=== PATIENT | female | born 1985 | race African-American/Black ===

== ENCOUNTER 2016-06-15 09:10 | Emergency (ER) | payer MEDICAID ==
[~2016-06-15] VITALS: Ht 177.8 cm; Wt 75.0 kg
[~2016-06-15 09:10] MED LIST: TERI14TA PO
[2016-06-15 09:11] VITALS: BP 117/59; PULSE 89; RESP 16; TEMP 98.8; O2SAT 98
[2016-06-15] MEDS ORDERED: SODIUM CHLOR 0.9% 1000 ML INJ 1,000 ML IV SCH (09:33)
[2016-06-15] MEDS ORDERED: METHYLPREDNISOLONE (09:33)
--- NOTE | 2016-06-15 09:33 | PD ---
HPI Chief Complaint: Abdominal Pain Time Seen by Provider: 09:26 Travel History International Travel<30 days: No Contact w/Intl Traveler<30days: No Traveled to known affect area: No History of Present Illness HPI This is a 30-year-old female with history of MS and status post emergent hysterectomy for dysfunctional uterine bleeding and 3 presents emergency Department with suprapubic abdominal cramping and vaginal spotting for the past week. She states the pain is been increasing over the past few days. She endorses mild nausea without vomiting. Denies any dysuria. She states she chronically has numbness and tingling over her extremities but is no worse than usual. States the pain is cramping in nature and gradually worsening. She denies any fever denies any flank pain denies any chest pain shortness of breath. PFSH Past Medical History Asthma: No Autoimmune Disease: Yes (MS) Blood Disorders: No Anxiety: No Depression: No Heart Rhythm Problems: No Cancer: Yes (LEFT BREAST CA. MASTECTOMY 2014) Cardiovascular Problems: No High Cholesterol: No Chemotherapy: No Chest Pain: Yes Congestive Heart Failure: No COPD: No Cerebrovascular Accident: No Diabetes: No Diminished Hearing: No Endocrine: No Gastrointestinal Disorders: Yes Genitourinary: Yes Headaches: Yes Hepatitis: No Hiatal Hernia: No Hypertension: No Immune Disorder: Yes (MS/goes to infusion clinic for solumdrol) Implanted Vascular Access Dvce: No Kidney Stones: No Musculoskeletal: Yes (MS- SOMETIMES USES A CANE) Neurologic: Yes (HX OF MS, RECENT EVENT 6-9) Psychiatric: No Reproductive: Yes (TOTAL HYSTERECTOMY 2013) Respiratory: No Immunizations Current: Yes Migraines: Yes Radiation Therapy: No Renal Failure: No Seizures: No Sleep Apnea: No Thyroid Disease: No Tetanus Vaccination: > 5 Years Influenza Vaccination: Yes ?: Not Menopausal: No : 3 Para: 2 Ovarian Cysts: Yes Past Surgical History Abdominal Surgery: Yes (OVARIAN TUMOR/CYSTS REMOVED - ) AICD: No Body Medical Devices: BILATERAL BREAST EXPANDERS Cardiac Surgery: No Section: Yes (X3) Endocrine Surgery: No Genitourinary Surgery: No Gynecologic Surgery: Yes (HYSTER=03/20/2013, CERVICAL SCRAPING/ LASER, CRYO LAPAROSCOPY ) Hysterectomy: Yes (had sup/cerv hysterectomy) Joint Replacement: No Neurologic Surgery: No Pacemaker: No Thoracic Surgery: Yes (BILAT MASTECTOMY 11/2014, LUMPECTOMY) Tonsillectomy: Yes Other Surgery: Yes (TONSILECTOMY) Social History Alcohol Use: No Tobacco Use: No Substance Use: No Allergies-Medications (Allergen,Severity, Reaction): Coded Allergies: Ativan (Verified Allergy, Intermediate, Bradycardia, 06/15/16) Reported Meds & Prescriptions Reported Meds & Active Scripts Active Reported [solumedrol infusion] Aubagio (Teriflunomide) 14 Mg Tab 14 Mg PO DAILY Review of Systems Except as stated in HPI: all other systems reviewed are Neg Physical Exam Narrative GENERAL: Well-developed well-nourished, ambulatory to the cane, no apparent distress SKIN: Focused skin assessment warm/dry. HEAD: Atraumatic. Normocephalic. EYES: Pupils equal and round. No scleral icterus. No injection or drainage. ENT: No nasal bleeding or discharge. Mucous membranes pink and moist. NECK: Trachea midline. No JVD. CARDIOVASCULAR: Regular rate and rhythm. No murmur appreciated. RESPIRATORY: No accessory muscle use. Clear to auscultation. Breath sounds equal bilaterally. GASTROINTESTINAL: Abdomen soft, and only tender in the superpubic area, nondistended. Hepatic and splenic margins not palpable. GENITOURINARY: Exam performed with female nurse fermenter wine present at all times. Patient with normal external female genitalia. cervix absent. No bmanual tenderness. minimal yeast-like discharge. MUSCULOSKELETAL: No obvious deformities. No clubbing. No cyanosis. No edema. NEUROLOGICAL: Awake and alert. No obvious cranial nerve deficits. Motor grossly within normal limits. Normal speech. PSYCHIATRIC: Appropriate mood and affect; insight and judgment normal. Data Data Last Documented VS Vital Signs Date Time Temp Pulse Resp B/P Pulse Ox O2 Delivery O2 Flow Rate FiO2 06/15/16 13:15 82 16 115/52 98 Room Air 06/15/16 09:11 98.8 Orders Urinalysis - C+S If Indicated (06/15/16 09:15) Ed Urine Pregnancytest Poc (06/15/16 09:15) Complete Blood Count With Diff (06/15/16 09:33) Comprehensive Metabolic Panel (06/15/16 09:33) Lipase (06/15/16 09:33) Prothrombin Time / Inr (Pt) (06/15/16 09:33) Act Partial Throm Time (Ptt) (06/15/16 09:33) Iv Access Insert/Monitor (06/15/16 09:33) Ecg Monitoring (06/15/16 09:33) Oximetry (06/15/16 09:33) Ondansetron Inj (Zofran Inj) (06/15/16 09:45) Sodium Chlor 0.9% 1000 Ml Inj (Ns 1000 M (06/15/16 09:33) Sodium Chloride 0.9% Flush (Ns Flush) (06/15/16 09:45) Ketorolac Inj (Toradol Inj) (06/15/16 09:45) Wet Prep Profile (06/15/16 10:14) Gc And Chlamydia Pcr (06/15/16 10:14) Ct Abd/Pel W Iv Contrast(Rout) (06/15/16 ) Iohexol 350 Inj (Omnipaque 350 Inj) (06/15/16 11:03) Fluconazole (Diflucan) (06/15/16 12:30) Labs Laboratory Tests Test 06/15/16 06/15/16 09:29 11:15 White Blood Count 3.7 TH/MM3 Red Blood Count 4.39 MIL/MM3 Hemoglobin 13.2 GM/DL Hematocrit 38.9 % Mean Corpuscular Volume 88.5 FL Mean Corpuscular Hemoglobin 30.0 PG Mean Corpuscular Hemoglobin 33.8 % Concent Red Cell Distribution Width 12.6 % Platelet Count 149 TH/MM3 Mean Platelet Volume 10.1 FL Neutrophils (%) (Auto) 51.8 % Lymphocytes (%) (Auto) 38.1 % Monocytes (%) (Auto) 5.9 % Eosinophils (%) (Auto) 3.4 % Basophils (%) (Auto) 0.8 % Neutrophils # (Auto) 1.9 TH/MM3 Lymphocytes # (Auto) 1.4 TH/MM3 Monocytes # (Auto) 0.2 TH/MM3 Eosinophils # (Auto) 0.1 TH/MM3 Basophils # (Auto) 0.0 TH/MM3 CBC Comment DIFF FINAL Differential Comment Prothrombin Time 11.4 SEC Prothromb Time International 1.0 RATIO Ratio Activated Partial 25.9 SEC Thromboplast Time Urine Color YELLOW Urine Turbidity HAZY Urine pH 6.0 Urine Specific [place] 1.023 Urine Protein TRACE mg/dL Urine Glucose (UA) NEG mg/dL Urine Ketones NEG mg/dL Urine Occult Blood NEG Urine Nitrite NEG Urine Bilirubin NEG Urine Urobilinogen LESS THAN 2.0 MG/DL Urine Leukocyte Esterase NEG Urine RBC LESS THAN 1 /hpf Urine WBC 1 /hpf Urine Squamous Epithelial 4 /hpf Cells Urine Bacteria RARE /hpf Urine Mucus FEW /lpf Microscopic Urinalysis Comment CULT NOT INDICATED Sodium Level 140 MEQ/L Potassium Level 3.9 MEQ/L Chloride Level 106 MEQ/L Carbon Dioxide Level 28.7 MEQ/L Anion Gap 5 MEQ/L Blood Urea Nitrogen 9 MG/DL Creatinine 1.08 MG/DL Estimat Glomerular Filtration 73 ML/MIN Rate Random Glucose 79 MG/DL Calcium Level 8.6 MG/DL Total Bilirubin 0.6 MG/DL Aspartate Amino Transf 16 U/L (AST/SGOT) Alanine Aminotransferase 24 U/L (ALT/SGPT) Alkaline Phosphatase 90 U/L Total Protein 7.3 GM/DL Albumin 4.1 GM/DL Lipase 104 U/L Clue Cells (Wet Prep) NONE SEEN Vaginal Trichomonas (Wet Prep) NONE SEEN Vaginal Yeast (Wet Prep) NONE SEEN Chlamydia trachomatis DNA NOT DETECTED (PCR) Neisseria gonorrhoeae DNA NOT DETECTED (PCR) [facility] Medical Decision Making Medical Screen Exam Complete: Yes Emergency Medical Condition: Yes Differential Diagnosis Pelvic pain, acute abdomen unlikely, appendicitis unlikely. Yeast infection, UTI. Narrative Course Patient roomed in ED, appears comfortable and in nad. Given toradol. Sleeping on reassessment still stating in some mild discomfort. Labs are reassuring. Her abdomen is benign. No indication for emergent imaging. DIscussed findings with patient, given diflucan. Discussed need for follow up with pcp and return to ED criteria. Diagnosis Primary Impression: Pelvic pain Additional Impression: Yeast infection Patient Instructions: General Instructions, Pelvic Pain in Women (DC), Vulvovaginal Candidiasis (ED) Disposition: 01 DISCHARGE HOME Condition: Stable Paramjit Thorpe MD Jun 15, 2016 09:33
[2016-06-15] MEDS ORDERED: SODIUM CHLORIDE 0.9% FLUSH 10 ML FLUSH IV FLUSH PRN (09:45)
[2016-06-15] MEDS ORDERED: KETOROLAC TROMETHAMINE 30 MG/ML (IVP) VIAL IVP ONE (09:45)
[2016-06-15] MEDS ORDERED: ONDANSETRON HCL 4 MG/2 ML VIAL IVP ONE (09:45)
[2016-06-15 09:53] LABS: AUTOMATED NEUTROPHIL # 1.9 TH/MM3 (1.8-7.7); BASOPHIL % 0.8 % (0.0-2.0); EOSINOPHIL # 0.1 TH/MM3 (0-0.4); EOSINOPHIL % 3.4 % (0.0-4.0); HEMATOCRIT 38.9 % (35.0-46.0); HEMO FLAGS DIFF FINAL; LYMPH % 38.1 % (9.0-44.0); LYMPHOCYTE # 1.4 TH/MM3 (1.0-4.8); MEAN CELL VOLUME 88.5 FL (80.0-100.0); MEAN CORPUSCULAR HGB CONC 33.8 % (32.0-36.0); MONO % 5.9 % (0.0-8.0); NEUT % 51.8 % (16.0-70.0); PLATELET COUNT 149 TH/MM3 (150-450); RED BLOOD COUNT 4.39 MIL/MM3 (4.00-5.30); RED CELL DISTRIBUTION WIDTH 12.6 % (11.6-17.2); WHITE BLOOD COUNT 3.7 TH/MM3 (4.0-11.0)
[2016-06-15 10:01] LABS: BACTERIA, URINE RARE /hpf; BLOOD, URINE NEG (NEG); COMMENT (UR) CULT NOT INDICATED; CULTURE IF INDICATED CULT NOT INDICATED; GLUCOSE,URINE NEG (NEG); KETONE, URINE NEG (NEG); MUCUS URINE FEW /lpf (OCC); NITRITE,URINE NEG (NEG); SQUAMOUS EPITHELIAL CELL URINE 4 /hpf (0-5); URINE COLOR YELLOW (YELLW/STRAW)
[2016-06-15 10:03] LABS: APTT (PATIENT) 25.9 SEC (24.3-30.1); PROTHROMBIN TIME - PATIENT 11.4 SEC (9.8-11.6)
[2016-06-15 10:09] LABS: ALKALINE PHOSPHATASE 90 U/L (45-117); ALT (GPT) 24 U/L (10-53); ANION GAP 5 MEQ/L (5-15); AST (GOT) 16 U/L (15-37); BICARBONATE 28.7 MEQ/L (21.0-32.0); BLOOD UREA NITROGEN 9 MG/DL (7-18); CHLORIDE 106 MEQ/L (98-107); GLOMERULAR FILTRATION RATE 73 ML/MIN (>89); POTASSIUM 3.9 MEQ/L (3.5-5.1); SODIUM (NA) 140 MEQ/L (136-145); TOTAL BILIRUBIN ADULT 0.6 MG/DL (0.2-1.0)
[2016-06-15] MEDS ORDERED: IOHEXOL 350 MG/ML 10 ML VIAL (for RAD DIAG) IV ONE (11:03)
--- NOTE | 2016-06-15 11:44 | RADRPT ---
EXAM DATE/TIME: 06/15/2016 10:53 [facility] COMPARISON: No previous studies available for comparison. INDICATIONS : Abdomen pain. IV CONTRAST: 100 cc Omnipaque 350 (iohexol) IV ORAL CONTRAST: No oral contrast ingested. RADIATION DOSE: 6.72 CTDIvol (mGy) MEDICAL HISTORY : SURGICAL HISTORY : None. ENCOUNTER: Initial ACUITY: 1 day PAIN SCALE: 3/10 LOCATION: Bilateral ABDOMEN. TECHNIQUE: Volumetric scanning of the abdomen and pelvis was performed. Using automated exposure control and ad justment of the mA and/or kV according to patient size, radiation dose was kept as low as reasonably achievable to obtain optimal diagnostic quality images. FINDINGS: LOWER LUNGS: The visualized lower lungs are clear. LIVER: Homogeneous density without lesion. There is no dilation of the biliary tree. No calcified gallston es. SPLEEN: Normal size without lesion. PANCREAS: Within normal limits. KIDNEYS: Normal in size and shape. There is no mass, stone or hydronephrosis. ADRENAL GLANDS: Within normal limits. VASCULAR: There is no aortic aneurysm. BOWEL/MESENTERY: No evidence of bowel dilatation. No free air or free fluid. Appendix within normal limits. ABDOMINAL WALL: Within normal limits. RETROPERITONEUM: There is no lymphadenopathy. BLADDER: No wall thickening or mass. REPRODUCTIVE: Within normal limits. INGUINAL: There is no lymphadenopathy or hernia. MUSCULOSKELETAL: Within normal limits for patient age. CONCLUSION: No acute findings in the abdomen or pelvis. Yevgeniy Galvan MD on June 15, 2016 at 11:38 Board Certified Radiologist. This report was verified electronically.
[2016-06-15] MEDS ORDERED: FLUCONAZOLE 100 MG TAB PO ONE (12:30)
[2016-06-15 13:15] VITALS: BP 115/52; PULSE 82; RESP 16; O2SAT 98
[2016-06-15 18:51] LABS: CHLAMYDIA PCR NOT DETECTED (NOT DETECT); NEISSERIA PCR NOT DETECTED (NOT DETECT)
== END 2016-06-15 13:45 | disposition home or self-care (01) ==
LOC: NEPD 09:10
DX: R10.2 Pelvic and perineal pain (principal); B37.9 Candidiasis, unspecified; N93.8 Other specified abnormal uterine and vaginal bleeding; R20.0 Anesthesia of skin
CPT/HCPCS: 74177; 80053; 81001; 83690; 84703; 85025; 85610; 85730; 87210; 87491; 87591; 96361; 96374; 96375; 99284; J1885; J2405; J7030; Q9967

== ENCOUNTER 2016-08-08 18:45 | Emergency (ER) | payer MEDICAID ==
[~2016-08-08] VITALS: Ht 177.8 cm; Wt 78.0 kg
[~2016-08-08 18:45] MED LIST changes: +METHYLPREDNISOLONE
[2016-08-08 18:47] VITALS: BP 118/75; PULSE 75; RESP 20; TEMP 98.8; O2SAT 100
--- NOTE | 2016-08-08 22:42 | PD ---
HPI . MS flare Chief Complaint: General Weakness Time Seen by Provider: 22:41 Travel History International Travel<30 days: No Contact w/Intl Traveler<30days: No Traveled to known affect area: No History of Present Illness HPI 31-year-old female who was diagnosed with multiple sclerosis in 2013 here with complaints of MS flare. Patient tells me that she usually takes medication named Aubagio and has been off of insulin since April of this year due to insurance issues. Patient tells me that she has not been able to see a neurologist and therefore has not been able to get this medication through her health insurance. Since then she's been experiencing intermittent flares of multiple sclerosis where she has increased generalized aches and pains and weakness. Patient tells me that she has fallen several times, but denies any head injury, loss of consciousness or significant joint pain. She is able to ambulate with a cane, but feels extremely weak. Today she is complaining of generalized pain moderate to severe. She also reports some intermittent shortness of breath and pain in her sternum. She tells me this usually goes along with her MS flares. Additionally she reports nausea, but denies any vomiting, abdominal pain or diaphoresis. She is accompanied by her father. PFSH Past Medical History Asthma: No Autoimmune Disease: Yes (MS) Blood Disorders: No Anxiety: No Depression: No Heart Rhythm Problems: No Cancer: Yes (LEFT BREAST CA. MASTECTOMY 2014) Cardiovascular Problems: No High Cholesterol: No Chemotherapy: No Chest Pain: Yes Congestive Heart Failure: No COPD: No Cerebrovascular Accident: No Diabetes: No Diminished Hearing: No Endocrine: No Gastrointestinal Disorders: Yes Genitourinary: Yes Headaches: Yes Hepatitis: No Hiatal Hernia: No Hypertension: No Immune Disorder: Yes (MS/goes to infusion clinic for solumdrol) Implanted Vascular Access Dvce: No Kidney Stones: No Musculoskeletal: Yes (MS- SOMETIMES USES A CANE) Neurologic: Yes (HX OF MS, RECENT EVENT 07-25) Psychiatric: No Reproductive: Yes (TOTAL HYSTERECTOMY 2013) Respiratory: No Immunizations Current: Yes Migraines: Yes Radiation Therapy: No Renal Failure: No Seizures: No Sleep Apnea: No Thyroid Disease: No ?: Not LMP: 03/01 Menopausal: No : 3 Para: 2 Ovarian Cysts: Yes Past Surgical History Abdominal Surgery: Yes (OVARIAN TUMOR/CYSTS REMOVED - ) AICD: No Body Medical Devices: BILATERAL BREAST EXPANDERS Cardiac Surgery: No Section: Yes (X3) Endocrine Surgery: No Genitourinary Surgery: No Gynecologic Surgery: Yes (HYSTER=03/20/2013, CERVICAL SCRAPING/ LASER, CRYO LAPAROSCOPY ) Hysterectomy: Yes (had sup/cerv hysterectomy) Joint Replacement: No Neurologic Surgery: No Pacemaker: No Thoracic Surgery: Yes (BILAT MASTECTOMY 11/2014, LUMPECTOMY) Tonsillectomy: Yes Other Surgery: Yes (TONSILECTOMY) Social History Alcohol Use: No Tobacco Use: No Substance Use: No Allergies-Medications (Allergen,Severity, Reaction): Coded Allergies: Ativan (Verified Allergy, Intermediate, Bradycardia, 08/08/16) Reported Meds & Prescriptions Reported Meds & Active Scripts Active Medrol Dosepak (Methylprednisolone) 4 Mg Dspk 4 Mg PO DIRECTED Per Pharmacist direction Reported [solumedrol infusion] Aubagio (Teriflunomide) 14 Mg Tab 14 Mg PO DAILY Review of Systems General / Constitutional: No: Fever Eyes: No: Visual changes HENT: No: Headaches Cardiovascular: Positive: Chest Pain or Discomfort Respiratory: Positive: Shortness of Breath Gastrointestinal: No: Abdominal Pain Genitourinary: No: Dysuria Musculoskeletal: No: Pain Skin: No Rash Neurologic: No: Weakness Psychiatric: No: Depression Endocrine: No: Polydipsia Hematologic/Lymphatic: No: Easy Bruising Physical Exam Narrative GENERAL: AAO x 3, no acute distress, Well-nourished, well-developed patient. SKIN: Warm and dry. No visible rashes or bruising. HEAD: Normocephalic and atraumatic. EYES: No scleral icterus. No injection or drainage. EOM intact, PERRLA ENT: No nasal drainage noted. Mucous membranes pink. Airway patent. No oropharynx abnormality. NECK: Supple, trachea midline. No JVD. No lymphadenopathy. CARDIOVASCULAR: Regular rate and rhythm without murmurs, gallops, or rubs. RESPIRATORY: Breath sounds equal bilaterally. No accessory muscle use. No rhonchi or rales. GASTROINTESTINAL: Abdomen soft, non-tender, nondistended. EXTREMITIES: No cyanosis or edema. No tenderness to palpation of the lower extremities. BACK: Nontender without obvious deformity. No CVA tenderness. NEURO: CN II-12 intact, director of housing strength normal b/l, UE 5/5 and LE 4/5, no focal deficits PSYCH: AAO x 3, normal affect. Data Data Last Documented VS Vital Signs Date Time Temp Pulse Resp B/P Pulse Ox O2 Delivery O2 Flow Rate FiO2 08/08/16 23:16 63 15 100 08/08/16 23:15 Room Air 08/08/16 23:12 108/66 08/08/16 18:47 98.8 Orders Complete Blood Count With Diff (08/08/16 22:50) Ed Urine Pregnancytest Poc (08/08/16 22:51) Urinalysis - C+S If Indicated (08/08/16 22:51) Methylprednisolone So Succ Inj (Solumedr (08/08/16 23:00) Morphine Inj (Morphine Inj) (08/08/16 23:00) Ondansetron Inj (Zofran Inj) (08/08/16 23:00) Electrocardiogram (08/08/16 22:57) Ckmb (Isoenzyme) Profile (08/08/16 22:57) D-Dimer (08/08/16 22:57) Magnesium (Mg) (08/08/16 22:57) Prothrombin Time / Inr (Pt) (08/08/16 22:57) Act Partial Throm Time (Ptt) (08/08/16 22:57) Troponin I (08/08/16 22:57) Chest, Single Ap (08/08/16 22:57) Ecg Monitoring (08/08/16 22:57) Bilateral Bp Monitoring (08/08/16 22:57) Iv Access Insert/Monitor (08/08/16 22:57) Oximetry (08/08/16 22:57) Oxygen Administration (08/08/16 22:57) Sodium Chloride 0.9% Flush (Ns Flush) (08/08/16 23:00) Basic Metabolic Panel (Bmp) (08/08/16 23:15) CKMB (08/08/16 23:15) CKMB% (08/08/16 23:15) Ct Pulmonary Angiogram (08/09/16 ) Ct Brain W/O Iv Contrast(Rout) (08/09/16 ) Iohexol 350 Inj (Omnipaque 350 Inj) (08/09/16 00:58) Morphine Inj (Morphine Inj) (08/09/16 01:45) Labs Laboratory Tests Test 08/08/16 08/08/16 23:05 23:15 Urine Color YELLOW Urine Turbidity CLEAR Urine pH 6.5 Urine Specific [place] 1.015 Urine Protein NEG mg/dL Urine Glucose (UA) NEG mg/dL Urine Ketones NEG mg/dL Urine Occult Blood NEG Urine Nitrite NEG Urine Bilirubin NEG Urine Urobilinogen LESS THAN 2.0 MG/DL Urine Leukocyte Esterase NEG Urine RBC LESS THAN 1 /hpf Urine WBC LESS THAN 1 /hpf Urine Squamous Epithelial <1 /hpf Cells Microscopic Urinalysis Comment CULT NOT INDICATED White Blood Count 5.3 TH/MM3 Red Blood Count 4.53 MIL/MM3 Hemoglobin 13.4 GM/DL Hematocrit 40.0 % Mean Corpuscular Volume 88.3 FL Mean Corpuscular Hemoglobin 29.6 PG Mean Corpuscular Hemoglobin 33.5 % Concent Red Cell Distribution Width 12.6 % Platelet Count 160 TH/MM3 Mean Platelet Volume 9.5 FL Neutrophils (%) (Auto) 51.1 % Lymphocytes (%) (Auto) 40.6 % Monocytes (%) (Auto) 5.1 % Eosinophils (%) (Auto) 2.8 % Basophils (%) (Auto) 0.4 % Neutrophils # (Auto) 2.7 TH/MM3 Lymphocytes # (Auto) 2.2 TH/MM3 Monocytes # (Auto) 0.3 TH/MM3 Eosinophils # (Auto) 0.1 TH/MM3 Basophils # (Auto) 0.0 TH/MM3 CBC Comment DIFF FINAL Differential Comment Prothrombin Time 11.3 SEC Prothromb Time International 1.0 RATIO Ratio Activated Partial 26.4 SEC Thromboplast Time D-Dimer Quantitative (PE/DVT) 1.44 MG/L FEU Sodium Level 142 MEQ/L Potassium Level 3.9 MEQ/L Chloride Level 107 MEQ/L Carbon Dioxide Level 32.2 MEQ/L Blood Urea Nitrogen 11 MG/DL Creatinine 0.86 MG/DL Random Glucose 73 MG/DL Calcium Level 8.5 MG/DL Magnesium Level 1.9 MG/DL Anion Gap 3 MEQ/L Estimat Glomerular Filtration 94 ML/MIN Rate Total Creatine Kinase 127 U/L Creatine Kinase MB LESS THAN 0.5 NG/ML Troponin I LESS THAN 0.02 NG/ML MDM Medical Decision Making Medical Screen Exam Complete: Yes Emergency Medical Condition: Yes Medical Record Reviewed: Yes Differential Diagnosis MS flare, UTI, atypical chest pain, PE, less likely ACS, Narrative Course 31-year-old female here with complaints of generalized aches and pains, weakness , chest pain and shortness of breath Examination was done and is remarkable for weakness in her lower extremities. She also has reproducible chest pain in the sternum with palpation. Labs, UA and x-ray have been ordered. Case has been discussed with Dr. Lua. She will determine the disposition for this patient. Scripts Methylprednisolone Dosepak (Medrol Dosepak)4 Mg Dspk4 Mg PO DIRECTED #1 DSPK Ref 0 Per Pharmacist direction Prov:Aurelio Lua MD 08/09/16 Condition: Stable Delmy Demarco Aug 08, 2016 22:42
[2016-08-08] MEDS ORDERED: SODIUM CHLORIDE 0.9% FLUSH 10 ML FLUSH IVF PRN (23:00)
[2016-08-08] MEDS ORDERED: MORPHINE SULFATE 4 MG/ML INJ IV PUSH ONE (23:00)
[2016-08-08] MEDS ORDERED: ONDANSETRON HCL 4 MG/2 ML VIAL IV PUSH ONE (23:00)
[2016-08-08] MEDS ORDERED: methylPREDNISolone SOD SUCC 125 MG/2 ML VIAL IV PUSH ONE (23:00)
[2016-08-08 23:12] VITALS: BP 108/66; PULSE 60; RESP 15; O2SAT 100
[2016-08-08 23:15] VITALS: RESP 15; O2SAT 100
[2016-08-08 23:33] LABS: AUTOMATED NEUTROPHIL # 2.7 TH/MM3 (1.8-7.7); BASOPHIL % 0.4 % (0.0-2.0); EOSINOPHIL # 0.1 TH/MM3 (0-0.4); EOSINOPHIL % 2.8 % (0.0-4.0); HEMO FLAGS DIFF FINAL; LYMPH % 40.6 % (9.0-44.0); LYMPHOCYTE # 2.2 TH/MM3 (1.0-4.8); MEAN CELL VOLUME 88.3 FL (80.0-100.0); MEAN CORPUSCULAR HEMOGLOBIN 29.6 PG (27.0-34.0); MEAN CORPUSCULAR HGB CONC 33.5 % (32.0-36.0); MONO % 5.1 % (0.0-8.0); NEUT % 51.1 % (16.0-70.0); PLATELET COUNT 160 TH/MM3 (150-450); RED BLOOD COUNT 4.53 MIL/MM3 (4.00-5.30); RED CELL DISTRIBUTION WIDTH 12.6 % (11.6-17.2); WHITE BLOOD COUNT 5.3 TH/MM3 (4.0-11.0)
[2016-08-08 23:34] LABS: BLOOD, URINE NEG (NEG); COMMENT (UR) CULT NOT INDICATED; CULTURE IF INDICATED CULT NOT INDICATED; GLUCOSE,URINE NEG (NEG); KETONE, URINE NEG (NEG); NITRITE,URINE NEG (NEG); PH, URINE 6.5 (5.0-8.5); SQUAMOUS EPITHELIAL CELL URINE <1 /hpf (0-5); URINE COLOR YELLOW (YELLW/STRAW)
[2016-08-08 23:43] LABS: APTT (PATIENT) 26.4 SEC (24.3-30.1); PROTHROMBIN TIME - PATIENT 11.3 SEC (9.8-11.6)
--- NOTE | 2016-08-08 23:43 | RADRPT ---
EXAM DATE/TIME: 08/08/2016 22:56 [facility] COMPARISON: CHEST SINGLE AP, July 26, 2015, 19:06. INDICATIONS : Pt states she is having an MS flare up with weakness, tremors, and recent falls. MEDICAL HISTORY : Carcinoma, breast. SURGICAL HISTORY : Hysterectomy. Mastectomy, bilateral. Pacemaker. ENCOUNTER: Initial ACUITY: 1 day PAIN SCORE: 6/10 LOCATION: Bilateral chest FINDINGS: A single view of the chest demonstrates the lungs to be symmetrically aerated without evidence of mas s, infiltrate or effusion. The cardiomediastinal contours are unremarkable. Osseous structures are intact. CONCLUSION: No acute disease. Madi Cool MD on August 08, 2016 at 23:39 Board Certified Radiologist. This report was verified electronically.
[2016-08-08 23:47] LABS: ANION GAP 3 MEQ/L (5-15); BICARBONATE 32.2 MEQ/L (21.0-32.0); BLOOD UREA NITROGEN 11 MG/DL (7-18); CHLORIDE 107 MEQ/L (98-107); GLOMERULAR FILTRATION RATE 94 ML/MIN (>89); MAGNESIUM 1.9 MG/DL (1.5-2.5); POTASSIUM 3.9 MEQ/L (3.5-5.1); SODIUM (NA) 142 MEQ/L (136-145)
[2016-08-08 23:51] LABS: CREATINE KINASE 127 U/L (26-192)
[2016-08-09 00:05] LABS: CKMB LESS THAN 0.5 NG/ML (0.5-3.6)
[2016-08-09] MEDS ORDERED: IOHEXOL 350 MG/ML 10 ML VIAL (for RAD DIAG) IV ONE (00:58)
--- NOTE | 2016-08-09 01:15 | RADRPT ---
EXAM DATE/TIME: 08/09/2016 00:44 [facility] COMPARISON: CT PULMONARY ANGIOGRAM, March 11, 2014, 13:00. INDICATIONS : Elevated d-dimer. IV CONTRAST: 75 cc Omnipaque 350 (iohexol) IV RADIATION DOSE: 22.90 CTDIvol (mGy) MEDICAL HISTORY : Carcinoma, breast. Multiple sclerosis. SURGICAL HISTORY : Mastectomy, bilateral. ENCOUNTER: Initial ACUITY: 1 day PAIN SCALE: 0/10 LOCATION: chest TECHNIQUE: Volumetric scanning of the chest was performed using a pulmonary embolism protocol MIP images were re constructed. Using automated exposure control and adjustment of the mA and/or kV according to patien t size, radiation dose was kept as low as reasonably achievable to obtain optimal diagnostic quality images. DICOM format image data is available electronically for review and comparison. FINDINGS: PULMONARY ARTERIES: No filling defects are seen in the pulmonary arteries through the segmental level. LUNGS: There is no consolidation or pneumothorax . A 5-6 mm nodule in the left lower lobe is again seen. PLEURAE: There is no pleural thickening or pleural effusion. MEDIASTINUM: There is good visualization of the great vessels of the middle mediastinum. No evidence of mediastin al or hilar adenopathy/mass. MUSCULOSKELETAL: Within normal limits for patient age. MISCELLANEOUS: The visualized upper abdominal organs demonstrate no acute abnormality. CONCLUSION: 1. Stable 5-6 mm nodule left lower lobe. 2. No evidence for pulmonary embolism. 3. No infiltrate or mass. Madi Cool MD on August 09, 2016 at 1:12 Board Certified Radiologist. This report was verified electronically.
--- NOTE | 2016-08-09 01:16 | RADRPT ---
EXAM DATE/TIME: 08/09/2016 00:40 [facility] COMPARISON: CT BRAIN W/O CONTRAST, March 09, 2014, 2:08. INDICATIONS : MS flare up with numbness, tremors, and pain. RADIATION DOSE: 66.12 CTDIvol (mGy) MEDICAL HISTORY : Multple sclerosis. Carcinoma, breast. SURGICAL HISTORY : None. ENCOUNTER: Initial ACUITY: 1 day PAIN SCALE: 8/10 LOCATION: cranial TECHNIQUE: Multiple contiguous axial images were obtained of the head. Using automated exposure control and adj ustment of the mA and/or kV according to patient size, radiation dose was kept as low as reasonably a chievable to obtain optimal diagnostic quality images. DICOM format image data is available electro nically for review and comparison. FINDINGS: CEREBRUM: The ventricles are normal for age. No evidence of midline shift, mass lesion, hemorrhage or acute in farction. No extra-axial fluid collections are seen. POSTERIOR FOSSA: The cerebellum and brainstem are intact. The 4th ventricle is midline. The cerebellopontine angle i s unremarkable. EXTRACRANIAL: The visualized portion of the orbits is intact. SKULL: The calvaria is intact. No evidence of skull fracture. CONCLUSION: No acute intracranial disease. Madi Cool MD on August 09, 2016 at 1:14 Board Certified Radiologist. This report was verified electronically.
[2016-08-09] MEDS ORDERED: MORPHINE SULFATE 4 MG/ML INJ IV PUSH ONE (01:45)
[2016-08-09] MEDS ORDERED: MEDR4PAK PO (01:46)
--- NOTE | 2016-08-09 01:46 | PD ---
Physical Exam Date Seen by Provider: Aug 09, 2016 Time Seen by Provider: 01:43 Narrative 31-year-old female with history of MS came to the emergency room for generalized body ache and chest pain. She was seen by my nurse practitioner and I'm supervising her. She left and signed the case over to me. Her blood test results came back and were within normal limit except for her d-dimer which was elevated. Patient also told me that her generalized body ache because of the MS is progressively worsening since April. Because of insurance issues she has not had any medications. Patient was started on Solu-Medrol by the nurse practitioner however and was given some pain medications. I ordered a CT scan of her head as well. Patient told me that she had an MRI of her brain and spine at [facility]. The CT pulmonary angiogram and head was negative except for an incidental finding of pulmonary nodule. I looked up on [facility] for the MRI report and I could not find those MRI in the list. At this point I'm comfortable discharging the patient home. She'll go home on prednisone prescription. To follow up with her primary care which she does have in her neurologist who she does have as well. Data Data Last Documented VS Orders Complete Blood Count With Diff (08/08/16 22:50) Ed Urine Pregnancytest Poc (08/08/16 22:51) Urinalysis - C+S If Indicated (08/08/16 22:51) Methylprednisolone So Succ Inj (Solumedr (08/08/16 23:00) Morphine Inj (Morphine Inj) (08/08/16 23:00) Ondansetron Inj (Zofran Inj) (08/08/16 23:00) Electrocardiogram (08/08/16 22:57) Ckmb (Isoenzyme) Profile (08/08/16 22:57) D-Dimer (08/08/16 22:57) Magnesium (Mg) (08/08/16 22:57) Prothrombin Time / Inr (Pt) (08/08/16 22:57) Act Partial Throm Time (Ptt) (08/08/16 22:57) Troponin I (08/08/16 22:57) Chest, Single Ap (08/08/16 22:57) Ecg Monitoring (08/08/16 22:57) Bilateral Bp Monitoring (08/08/16 22:57) Iv Access Insert/Monitor (08/08/16 22:57) Oximetry (08/08/16 22:57) Oxygen Administration (08/08/16 22:57) Sodium Chloride 0.9% Flush (Ns Flush) (08/08/16 23:00) Basic Metabolic Panel (Bmp) (08/08/16 23:15) CKMB (08/08/16 23:15) CKMB% (08/08/16 23:15) Ct Pulmonary Angiogram (08/09/16 ) Ct Brain W/O Iv Contrast(Rout) (08/09/16 ) Iohexol 350 Inj (Omnipaque 350 Inj) (08/09/16 00:58) Morphine Inj (Morphine Inj) (08/09/16 01:45) Labs Laboratory Tests Test 08/08/16 23:15 Anion Gap 3 MEQ/L Estimat Glomerular Filtration 94 ML/MIN Rate Total Creatine Kinase 127 U/L Creatine Kinase MB LESS THAN 0.5 NG/ML Troponin I LESS THAN 0.02 NG/ML MDM Supervised Visit with NATANAEL: Yes Diagnosis Primary Impression: Chest pain Qualified Code: R07.9 - Chest pain, unspecified type Additional Impression: Multiple sclerosis Referrals: Primary Care Physician Additional Instruction: Please follow-up with your primary care and your neurologist on Thursday. Take the medication given to her as per prescription direction. Med/Other Pt SpecificInfo: Prescription(s) given Scripts Methylprednisolone Dosepak (Medrol Dosepak)4 Mg Dspk4 Mg PO DIRECTED #1 DSPK Ref 0 Per Pharmacist direction Prov:Aurelio Lua MD 08/09/16 Disposition: DISCHARGE HOME Condition: Stable Aurelio Lua MD Aug 09, 2016 01:46 Urine WBC LESS THAN 1 /hpf Urine Squamous Epithelial <1 /hpf Cells Microscopic Urinalysis Comment CULT NOT INDICATED White Blood Count 5.3 TH/MM3 Red Blood Count 4.53 MIL/MM3 Hemoglobin 13.4 GM/DL Hematocrit 40.0 % Mean Corpuscular Volume 88.3 FL Mean Corpuscular Hemoglobin 29.6 PG Mean Corpuscular Hemoglobin 33.5 % Concent Red Cell Distribution Width 12.6 % Platelet Count 160 TH/MM3 Mean Platelet Volume 9.5 FL Neutrophils (%) (Auto) 51.1 % Lymphocytes (%) (Auto) 40.6 % Monocytes (%) (Auto) 5.1 % Eosinophils (%) (Auto) 2.8 % Basophils (%) (Auto) 0.4 % Neutrophils # (Auto) 2.7 TH/MM3 Lymphocytes # (Auto) 2.2 TH/MM3 Monocytes # (Auto) 0.3 TH/MM3 Eosinophils # (Auto) 0.1 TH/MM3 Basophils # (Auto) 0.0 TH/MM3 CBC Comment DIFF FINAL Differential Comment Prothrombin Time 11.3 SEC Prothromb Time International 1.0 RATIO Ratio Activated Partial 26.4 SEC Thromboplast Time D-Dimer Quantitative (PE/DVT) 1.44 MG/L FEU Sodium Level 142 MEQ/L Potassium Level 3.9 MEQ/L Chloride Level 107 MEQ/L Carbon Dioxide Level 32.2 MEQ/L Blood Urea Nitrogen 11 MG/DL Creatinine 0.86 MG/DL Random Glucose 73 MG/DL Calcium Level 8.5 MG/DL Magnesium Level 1.9 MG/DL Anion Gap 3 MEQ/L Estimat Glomerular Filtration 94 ML/MIN Rate Total Creatine Kinase 127 U/L Creatine Kinase MB LESS THAN 0.5 NG/ML Troponin I LESS THAN 0.02 NG/ML MDM Supervised Visit with NATANAEL: Yes Diagnosis Primary Impression: Chest pain Qualified Code: R07.9 - Chest pain, unspecified type Additional Impression: Multiple sclerosis Referrals: Primary Care Physician Additional Instruction: Please follow-up with your primary care and your neurologist on Thursday. Take the medication given to her as per prescription direction. Med/Other Pt SpecificInfo: Prescription(s) given Scripts Methylprednisolone Dosepak (Medrol Dosepak)4 Mg Dspk4 Mg PO DIRECTED #1 DSPK Ref 0 Per Pharmacist direction Prov:Aurelio Lua MD 08/09/16 Disposition: DISCHARGE HOME Condition: Stable Aurelio Lua MD Aug 09, 2016 01:46
--- NOTE | 2016-08-09 11:45 | EKG ---
Date Performed: 08/08/2016 Time Performed: 23:26:40 PTAGE: 31 years EKG: Sinus rhythm Since previous tracing, no significant change noted NORMAL ECG PREVIOUS TRACING : 03/10/2014 19.57 DOCTOR: Esteban Castano Interpretating Date/Time 08/09/2016 12:05:49
== END 2016-08-09 04:05 | disposition home or self-care (01) ==
LOC: NEPC 18:45
DX: R07.9 Chest pain, unspecified (principal); G35 Multiple sclerosis; R91.1 Solitary pulmonary nodule; M79.1 Myalgia; R53.1 Weakness; R06.02 Shortness of breath; Z87.19 Personal history of other diseases of the digestive system; Z87.448 Personal history of other diseases of urinary system; Z86.69 Personal history of other diseases of the nervous system and sense organs
CPT/HCPCS: 70450; 71010; 71275; 80048; 81001; 82550; 82552; 83735; 84484; 84703; 85025; 85379; 85610; 85730; 93005; 96374; 96375; 96376; 99285; J2270; J2405; J2930; Q9967

== ENCOUNTER 2016-10-15 15:41 | Emergency (ER) | payer MEDICAID ==
[~2016-10-15] VITALS: Ht 177.8 cm; Wt 78.0 kg
[~2016-10-15 15:41] MED LIST changes: +MEDR4PAK PO
[2016-10-15] MEDS ORDERED: IOHEXOL 350 MG/ML 10 ML VIAL (for RAD DIAG) IVCONTRAST ONE (15:42)
[2016-10-15 15:46] VITALS: BP 127/74; PULSE 73; RESP 16; TEMP 98.4; O2SAT 98
--- NOTE | 2016-10-15 15:58 | PD ---
Physical Exam Date Seen by Provider: Oct 15, 2016 Time Seen by Provider: 15:57 Narrative 31 yo female here for evaluation of left breast pain. History of breast implant recently. Had US outpatient which showed leakage. Here because of pain. Vitals are stable in triage. Awaiting bed placement. Data Data Last Documented VS Vital Signs Date Time Temp Pulse Resp B/P (MAP) Pulse Ox O2 Delivery O2 Flow Rate FiO2 10/15/16 15:46 98.4 73 16 127/74 (91) 98 Orders Orders Complete Blood Count With Diff (10/15/16 15:51) Basic Metabolic Panel (Bmp) (10/15/16 15:51) [facility] [place] Medical Record Reviewed: Yes Supervised Visit with NATANAEL: No Jose Leggett Oct 15, 2016 15:58
[2016-10-15] MEDS ORDERED: METR500T10 PO (17:25)
[2016-10-15] MEDS ORDERED: MORPHINE SULFATE 4 MG/ML INJ IV PUSH ONE ×2 (17:45→22:00)
[2016-10-15] MEDS ORDERED: ONDANSETRON HCL 4 MG/2 ML VIAL IV PUSH ONE ×2 (17:45→22:30)
--- NOTE | 2016-10-15 17:55 | PD ---
HPI Chief Complaint: Pain: Acute or Chronic Time Seen by Provider: 17:26 Travel History International Travel<30 days: No Contact w/Intl Traveler<30days: No Traveled to known affect area: No History of Present Illness HPI Patient is a 31-year-old female presenting to the emergency department evaluation of left breast pain. Patient states she noticed a lump in her left breast 2 months ago, since that time she's had increasing pain. She followed up with her primary doctor who ordered outpatient imaging that showed a recurrence of possible malignancy. She was then seen and evaluated by her breast surgeon who recommended MRI prior to biopsy or breast surgery. Patient states that she was told likely stage II breast cancer. Patient had breast reconstruction surgery in July 2015 after being diagnosed with breast cancer followed by bilateral mastectomy. Patient states her pain is 9 out of 10 and describes aching and throbbing. Patient's past medical history significant for multiple sclerosis. PFSH Past Medical History Asthma: No Autoimmune Disease: Yes (MS) Blood Disorders: No Anxiety: No Depression: No Heart Rhythm Problems: No Cancer: Yes (LEFT BREAST CA. MASTECTOMY 2014) Cardiovascular Problems: No High Cholesterol: No Chemotherapy: No Chest Pain: Yes Congestive Heart Failure: No COPD: No Cerebrovascular Accident: No Diabetes: No Diminished Hearing: No Endocrine: No Gastrointestinal Disorders: Yes Genitourinary: Yes Headaches: Yes Hepatitis: No Hiatal Hernia: No Hypertension: No Implanted Vascular Access Dvce: No Kidney Stones: No Psychiatric: No Respiratory: No Immunizations Current: Yes Migraines: Yes Radiation Therapy: No Renal Failure: No Seizures: No Sleep Apnea: No Thyroid Disease: No Tetanus Vaccination: > 5 Years Influenza Vaccination: No ?: Not Menopausal: No : 3 Para: 3 Ovarian Cysts: Yes Past Surgical History Abdominal Surgery: Yes (OVARIAN TUMOR/CYSTS REMOVED - ) AICD: No Cardiac Surgery: No Section: Yes (X3) Endocrine Surgery: No Genitourinary Surgery: No Gynecologic Surgery: Yes (HYSTER=03/20/2013, CERVICAL SCRAPING/ LASER, CRYO LAPAROSCOPY ) Hysterectomy: Yes Joint Replacement: No Neurologic Surgery: No Pacemaker: No Tonsillectomy: Yes Other Surgery: Yes (bilateral mastectomy, reconstruction.) Social History Alcohol Use: No Tobacco Use: No Substance Use: No Allergies-Medications (Allergen,Severity, Reaction): Coded Allergies: lorazepam (Unverified Allergy, Intermediate, Bradycardia, 10/15/16) Reported Meds & Prescriptions Reported Meds & Active Scripts Active Percocet (Oxycodone-Acetaminophen) 5-325 mg Tab 1 Tab PO Q6H PRN Reported Metronidazole 500 Mg Tab 500 Mg PO BID [solumedrol infusion] Review of Systems Except as stated in HPI: all other systems reviewed are Neg Musculoskeletal: Positive: Pain Physical Exam Narrative GENERAL: Well-developed, well-nourished, alert female. Resting comfortably in no acute distress. SKIN: Warm and dry. Left breast with dimpling above incision site of previous mastectomy, there is edema to the left lower quadrant of the left breast. No erythema or warmth noted. HEAD: Atraumatic. Normocephalic. EYES: Pupils equal and round. No scleral icterus. No injection or drainage. ENT: No nasal bleeding or discharge. Mucous membranes pink and moist. NECK: Trachea midline. No JVD. CARDIOVASCULAR: Regular rate and rhythm. RESPIRATORY: No accessory muscle use. Clear to auscultation. Breath sounds equal bilaterally. GASTROINTESTINAL: Abdomen soft, non-tender, nondistended. Hepatic and splenic margins not palpable. MUSCULOSKELETAL: Extremities without clubbing, cyanosis, or edema. No obvious deformities. NEUROLOGICAL: Awake and alert. No obvious cranial nerve deficits. Motor grossly within normal limits. Five out of 5 muscle strength in the arms and legs. Normal speech. PSYCHIATRIC: Appropriate mood and affect; insight and judgment normal. Data Data Last Documented VS Vital Signs Date Time Temp Pulse Resp B/P (MAP) Pulse Ox O2 Delivery O2 Flow Rate FiO2 10/15/16 23:16 10/15/16 22:26 60 16 100 Room Air 10/15/16 15:46 98.4 Orders Orders Complete Blood Count With Diff (10/15/16 15:51) Basic Metabolic Panel (Bmp) (10/15/16 15:51) Iv Access Insert/Monitor (10/15/16 17:38) Morphine Inj (Morphine Inj) (10/15/16 17:45) Ondansetron Inj (Zofran Inj) (10/15/16 17:45) Ct Thorax/ Chest W Iv Contrast (10/15/16 ) Iohexol 350 Inj (Omnipaque 350 Inj) (10/15/16 15:42) Morphine Inj (Morphine Inj) (10/15/16 22:00) Ondansetron Inj (Zofran Inj) (10/15/16 22:30) Labs Laboratory Tests Test 10/15/16 17:45 White Blood Count 5.6 TH/MM3 Red Blood Count 4.36 MIL/MM3 Hemoglobin 13.2 GM/DL Hematocrit 38.8 % Mean Corpuscular Volume 89.0 FL Mean Corpuscular Hemoglobin 30.2 PG Mean Corpuscular Hemoglobin Concent 33.9 % Red Cell Distribution Width 12.7 % Platelet Count 145 TH/MM3 Mean Platelet Volume 10.1 FL Neutrophils (%) (Auto) 52.2 % Lymphocytes (%) (Auto) 37.4 % Monocytes (%) (Auto) 7.0 % Eosinophils (%) (Auto) 2.5 % Basophils (%) (Auto) 0.9 % Neutrophils # (Auto) 2.9 TH/MM3 Lymphocytes # (Auto) 2.1 TH/MM3 Monocytes # (Auto) 0.4 TH/MM3 Eosinophils # (Auto) 0.1 TH/MM3 Basophils # (Auto) 0.1 TH/MM3 CBC Comment DIFF FINAL Differential Comment Blood Urea Nitrogen 11 MG/DL Creatinine 0.90 MG/DL Random Glucose 75 MG/DL Calcium Level 8.5 MG/DL Sodium Level 139 MEQ/L Potassium Level 3.8 MEQ/L Chloride Level 106 MEQ/L Carbon Dioxide Level 26.9 MEQ/L Anion Gap 6 MEQ/L Estimat Glomerular Filtration Rate 89 ML/MIN [facility] Medical Decision Making Medical Screen Exam Complete: Yes Emergency Medical Condition: Yes Interpretation(s) Vital Signs Date Time Temp Pulse Resp B/P (MAP) Pulse Ox O2 Delivery O2 Flow Rate FiO2 10/15/16 17:29 20 10/15/16 15:46 98.4 73 16 127/74 (91) 98 Differential Diagnosis Malignancy versus abscess versus mastalgia versus other Narrative Course Patient is a 31-year-old female presented with left breast pain is ongoing for 2 months. Patient has been seen and evaluated by her primary doctor as well as her plastic surgeon. Outpatient ultrasound resulted with likely malignancy in the left breast. Discussed with Dr. Brandon, patient's breast implants are not leaking, they are solid silicone breast implants. He stated that there is likely a fluid collection/mass in the left breast, it was questionable for malignancy. Patient has Medicaid and has been having issues obtaining an MRI. Patient was at his office several days ago anxious and tearful. At that time she stated/ questioned if going to the emergency room with complaint of breast pain would help obtain the MRI here. MRI was ordered initially however we do not have capabilities in the emergency department to do MRIs of the breast, this will need to be performed as an outpatient. This was discussed with patient. CT scan with IV contrast has been ordered to potentially differentiate between mass/fluid collection. This was discussed with patient, my attending physician was present as well. Care of patient transferred to my attending physician who will determine patient 's disposition. Scripts Oxycodone-Acetaminophen (Percocet) 5-325 mg Tab 1 TAB PO Q6H Y for PAIN, #15 TAB 0 Refills Prov: Roberto Trotter MD 10/15/16 Keke Toledo Oct 15, 2016 17:55
[2016-10-15 18:07] LABS: AUTOMATED NEUTROPHIL # 2.9 TH/MM3 (1.8-7.7); BASOPHIL # 0.1 TH/MM3 (0-0.2); BASOPHIL % 0.9 % (0.0-2.0); EOSINOPHIL # 0.1 TH/MM3 (0-0.4); EOSINOPHIL % 2.5 % (0.0-4.0); HEMATOCRIT 38.8 % (35.0-46.0); HEMO FLAGS DIFF FINAL; LYMPH % 37.4 % (9.0-44.0); LYMPHOCYTE # 2.1 TH/MM3 (1.0-4.8); MEAN CORPUSCULAR HEMOGLOBIN 30.2 PG (27.0-34.0); MEAN CORPUSCULAR HGB CONC 33.9 % (32.0-36.0); NEUT % 52.2 % (16.0-70.0); PLATELET COUNT 145 TH/MM3 (150-450); RED BLOOD COUNT 4.36 MIL/MM3 (4.00-5.30); RED CELL DISTRIBUTION WIDTH 12.7 % (11.6-17.2); WHITE BLOOD COUNT 5.6 TH/MM3 (4.0-11.0)
[2016-10-15 18:12] LABS: BICARBONATE 26.9 MEQ/L (21.0-32.0); POTASSIUM 3.8 MEQ/L (3.5-5.1)
--- NOTE | 2016-10-15 21:50 | RADRPT ---
EXAM DATE/TIME: 10/15/2016 21:03 [place] COMPARISON: No previous studies available for comparison. INDICATIONS : Patient complains of left breast implant painful and leaking. IV CONTRAST: 100 cc Omnipaque 350 (iohexol) IV RADIATION DOSE: 3.34 CTDIvol (mGy) MEDICAL HISTORY : Carcinoma, breast. SURGICAL HISTORY : Hysterectomy. Mastectomy, bilateral. ENCOUNTER: Initial ACUITY: 1 week PAIN SCALE: 5/10 LOCATION: Left breast TECHNIQUE: Volumetric scanning of the chest was performed. Using automated exposure control and adjustment of t he mA and/or kV according to patient size, radiation dose was kept as low as reasonably achievable to obtain optimal diagnostic quality images. DICOM format image data is available electronically for review and comparison. Follow-up recommendations for detected pulmonary nodules are based at a minimum on nodule size and pa tient risk factors according to Fleischner Society Guidelines. FINDINGS: LUNGS: There is no consolidation or pneumothorax. No concerning pulmonary nodule is visualized. PLEURA: There is no pleural thickening or pleural effusion. MEDIASTINUM: The heart and great vessels demonstrate no acute abnormality. There is no mediastinal or hilar lymph adenopathy. AXILLAE: Within normal limits. No lymphadenopathy. SKELETAL: Within normal limits for patient age. MISCELLANEOUS: The visualized upper abdominal organs demonstrate no acute abnormality. Bilateral breast implants are present. These appear grossly intact on this CT examination. There do appear to be radial folds at t he left implant. CONCLUSION: 1. No acute abnormality is seen. 2. Bilateral breast implants that appear intact on this CT examination. Prashanth Munoz MD on October 15, 2016 at 21:46 Board Certified Radiologist. This report was verified electronically.
[2016-10-15] MEDS ORDERED: PERC5TAB12 PO (22:03)
--- NOTE | 2016-10-15 22:03 | PD ---
Data Data Last Documented VS Vital Signs Date Time Temp Pulse Resp B/P (MAP) Pulse Ox O2 Delivery O2 Flow Rate FiO2 10/15/16 17:29 20 10/15/16 15:46 98.4 73 127/74 (91) 98 Orders Orders Complete Blood Count With Diff (10/15/16 15:51) Basic Metabolic Panel (Bmp) (10/15/16 15:51) Iv Access Insert/Monitor (10/15/16 17:38) Morphine Inj (Morphine Inj) (10/15/16 17:45) Ondansetron Inj (Zofran Inj) (10/15/16 17:45) Ct Thorax/ Chest W Iv Contrast (10/15/16 ) Iohexol 350 Inj (Omnipaque 350 Inj) (10/15/16 15:42) Morphine Inj (Morphine Inj) (10/15/16 22:00) Labs Laboratory Tests Test 10/15/16 17:45 White Blood Count 5.6 TH/MM3 Red Blood Count 4.36 MIL/MM3 Hemoglobin 13.2 GM/DL Hematocrit 38.8 % Mean Corpuscular Volume 89.0 FL Mean Corpuscular Hemoglobin 30.2 PG Mean Corpuscular Hemoglobin Concent 33.9 % Red Cell Distribution Width 12.7 % Platelet Count 145 TH/MM3 Mean Platelet Volume 10.1 FL Neutrophils (%) (Auto) 52.2 % Lymphocytes (%) (Auto) 37.4 % Monocytes (%) (Auto) 7.0 % Eosinophils (%) (Auto) 2.5 % Basophils (%) (Auto) 0.9 % Neutrophils # (Auto) 2.9 TH/MM3 Lymphocytes # (Auto) 2.1 TH/MM3 Monocytes # (Auto) 0.4 TH/MM3 Eosinophils # (Auto) 0.1 TH/MM3 Basophils # (Auto) 0.1 TH/MM3 CBC Comment DIFF FINAL Differential Comment Blood Urea Nitrogen 11 MG/DL Creatinine 0.90 MG/DL Random Glucose 75 MG/DL Calcium Level 8.5 MG/DL Sodium Level 139 MEQ/L Potassium Level 3.8 MEQ/L Chloride Level 106 MEQ/L Carbon Dioxide Level 26.9 MEQ/L Anion Gap 6 MEQ/L Estimat Glomerular Filtration Rate 89 ML/MIN MDM Supervised Visit with NATANAEL: Yes Narrative Course I, Dr. Trotter, have reviewed the advance practice practitioner's documentation and am in agreement, met with the patient face to face, made the diagnosis, and the medical decision making was done by me. See her note for further details. Briefly this a 31-year-old female with history of breast cancer status post bilateral mastectomy and breast implants placed by Dr. Brandon last year, here for evaluation of left breast pain. Patient has had an ultrasound of this left breast which shows fluid collection and possible new mass. Outpatient MRI was ordered, however because of insurance reasons was unable to be obtained. MRI was ordered here, however we do not have the capability of performing breast MRI according to the home appliance tech. Case was discussed with Dr. Brandon who knows the patient well and asked if we could perform a CT of her thorax and to have her follow-up with him in his office this week. Vital signs are within normal limits. CBC is unremarkable. BMP is unremarkable. CT thorax: CONCLUSION: 1. No acute abnormality is seen. 2. Bilateral breast implants that appear intact on this CT examination. Patient made aware of all findings. On reassessment she is resting comfortably. She is still complaining of pain. She will be discharged home with a prescription for pain medicine. She was given a copy of her CT report. Her pain is located in her left breast, and does not appear to be cardiac in nature. She was instructed to follow-up with Dr. Brandon this week. She was informed on when to return to the emergency department. She verbalizes understanding and agreement with plan. Diagnosis Primary Impression: Breast pain, left Referrals: Primary Care Physician 3 days Additional Instruction: Follow-up with Dr. Laron Salvador this week. Follow-up with your primary care physician this week. Return to the emergency department for worsening symptoms or any other concerns. Scripts Oxycodone-Acetaminophen (Percocet) 5-325 mg Tab 1 TAB PO Q6H Y for PAIN, #15 TAB 0 Refills Prov: Roberto Trotter MD 10/15/16 Disposition: 01 DISCHARGE HOME Condition: Stable Roberto Trotter MD Oct 15, 2016 22:03
[2016-10-15 22:26] VITALS: BP 101/68; PULSE 60; RESP 16; O2SAT 100
== END 2016-10-15 23:15 | disposition home or self-care (01) ==
LOC: NEPD 15:41
DX: N64.4 Mastodynia (principal); G35 Multiple sclerosis; Z85.3 Personal history of malignant neoplasm of breast; Z79.899 Other long term (current) drug therapy
CPT/HCPCS: 71260; 80048; 85025; 96374; 96375; 96376; 99285; J2270; J2405; Q9967

== ENCOUNTER 2016-10-19 07:59 | Inpatient (IN) | payer MEDICAID ==
[~2016-10-19 07:59] MED LIST changes: -MEDR4PAK PO; +METR500T10 PO; +PERC5TAB12 PO; -TERI14TA PO
[2016-10-19 08:02] VITALS: BP 118/63; PULSE 87; RESP 18; TEMP 98.1; O2SAT 100
[2016-10-19] MEDS ORDERED: MORPHINE SULFATE 4 MG/ML INJ IV PUSH ONE (08:30)
[2016-10-19] MEDS ORDERED: ONDANSETRON HCL 4 MG/2 ML VIAL IV PUSH ONE (08:30)
[2016-10-19] MEDS ORDERED: SODIUM CHLORIDE 0.9% FLUSH 10 ML FLUSH IVF PRN (08:30)
--- NOTE | 2016-10-19 08:34 | PD ---
HPI Chief Complaint: Cardiac Complaint Time Seen by Provider: 08:14 Travel History International Travel<30 days: No Contact w/Intl Traveler<30days: No Traveled to known affect area: No History of Present Illness HPI HAS A H/O BREAST CA S/P CARLOS MASTECTOMY AND RECONSTRUCTIVE SURGERY...C/O LEFT BREAST AREA PAIN, ONGOING, PRESSURE LIKE, 8/10, NONRAD, DIFFICULT TO TAKE BREATH B/C OF PAIN... PT IS COMPLAINING OF GEN WEAKNESS (WHICH ACCORDING TO PATIENT IS TYPICAL OF HER MULTIPLE SCLEROSIS) PFSH Past Medical History Asthma: No Autoimmune Disease: Yes (MS) Blood Disorders: No Anxiety: No Depression: No Heart Rhythm Problems: No Cancer: Yes (LEFT BREAST CA. MASTECTOMY 2014) Cardiovascular Problems: No High Cholesterol: No Chemotherapy: No Chest Pain: Yes Congestive Heart Failure: No COPD: No Cerebrovascular Accident: No Diabetes: No Diminished Hearing: No Endocrine: No Gastrointestinal Disorders: Yes Genitourinary: Yes Headaches: Yes Hepatitis: No Hiatal Hernia: No Hypertension: No Implanted Vascular Access Dvce: No Kidney Stones: No Psychiatric: No Respiratory: No Immunizations Current: Yes Migraines: Yes Radiation Therapy: No Renal Failure: No Seizures: No Sleep Apnea: No Thyroid Disease: No Menopausal: No : 3 Para: 3 Ovarian Cysts: Yes Past Surgical History Abdominal Surgery: Yes (OVARIAN TUMOR/CYSTS REMOVED - ) AICD: No Cardiac Surgery: No Section: Yes (X3) Endocrine Surgery: No Genitourinary Surgery: No Gynecologic Surgery: Yes (HYSTER=03/20/2013, CERVICAL SCRAPING/ LASER, CRYO LAPAROSCOPY ) Hysterectomy: Yes Joint Replacement: No Neurologic Surgery: No Pacemaker: No Tonsillectomy: Yes Other Surgery: Yes (bilateral mastectomy, reconstruction.) Social History Alcohol Use: No Tobacco Use: No Substance Use: No Allergies-Medications (Allergen,Severity, Reaction): Coded Allergies: lorazepam (Unverified Allergy, Intermediate, Bradycardia, 10/15/16) Reported Meds & Prescriptions Reported Meds & Active Scripts Active Review of Systems Except as stated in HPI: all other systems reviewed are Neg Cardiovascular: Positive: Chest Pain or Discomfort Neurologic: Positive: Weakness Physical Exam Narrative GENERAL: SKIN: Warm and dry. HEAD: Atraumatic. Normocephalic. EYES: Pupils equal and round. No scleral icterus. No injection or drainage. ENT: No nasal bleeding or discharge. Mucous membranes pink and moist. NECK: Trachea midline. No JVD. CARDIOVASCULAR: Regular rate and rhythm. RESPIRATORY: No accessory muscle use. Clear to auscultation. Breath sounds equal bilaterally. GASTROINTESTINAL: Abdomen soft, non-tender, nondistended. MUSCULOSKELETAL: Extremities without clubbing, cyanosis, or edema. No obvious deformities. REPRODUCIBLE ON PALPATION OF LEFT BREAST AND CHEST WALL NEUROLOGICAL: Awake and alert. No obvious cranial nerve deficits. Motor grossly within normal liMITS EXCEPT LEFT UE/LE WEAKNESS, Normal speech. PSYCHIATRIC: Appropriate mood and affect; insight and judgment normal. Data Data Last Documented VS Vital Signs Date Time Temp Pulse Resp B/P (MAP) Pulse Ox O2 Delivery O2 Flow Rate FiO2 10/19/16 10:49 61 18 111/76 (88) 100 Room Air 10/19/16 08:02 98.1 Orders Orders Electrocardiogram (10/19/16 08:24) Ckmb (Isoenzyme) Profile (10/19/16 08:24) Complete Blood Count With Diff (10/19/16 08:24) Comprehensive Metabolic Panel (10/19/16 08:24) Prothrombin Time / Inr (Pt) (10/19/16 08:24) Act Partial Throm Time (Ptt) (10/19/16 08:24) Troponin I (10/19/16 08:24) Chest, Single Ap (10/19/16 08:24) Ecg Monitoring (10/19/16 08:24) Bilateral Bp Monitoring (10/19/16 08:24) Iv Access Insert/Monitor (10/19/16 08:24) Oximetry (10/19/16 08:24) Oxygen Administration (10/19/16 08:24) Sodium Chloride 0.9% Flush (Ns Flush) (10/19/16 08:30) Ct Pulmonary Angiogram (10/19/16 08:24) Morphine Inj (Morphine Inj) (10/19/16 08:30) Ondansetron Inj (Zofran Inj) (10/19/16 08:30) Hydromorphone Pf Inj (Dilaudid Pf Inj) (10/19/16 09:00) CKMB (10/19/16 08:28) CKMB% (10/19/16 08:28) Iohexol 350 Inj (Omnipaque 350 Inj) (10/19/16 10:37) Hydromorphone Pf Inj (Dilaudid Pf Inj) (10/19/16 11:00) Methylprednisolone So Succ Inj (Solumedr (10/19/16 12:00) Hydromorphone Pf Inj (Dilaudid Pf Inj) (10/19/16 12:00) Admit Order (Ed Use Only) (10/19/16 12:33) Labs Laboratory Tests Test 10/19/16 08:28 White Blood Count 3.9 TH/MM3 Red Blood Count 4.42 MIL/MM3 Hemoglobin 13.1 GM/DL Hematocrit 39.2 % Mean Corpuscular Volume 88.7 FL Mean Corpuscular Hemoglobin 29.7 PG Mean Corpuscular Hemoglobin Concent 33.5 % Red Cell Distribution Width 12.8 % Platelet Count 147 TH/MM3 Mean Platelet Volume 9.8 FL CBC Comment AUTO DIFF Differential Total Cells Counted 100 Neutrophils % (Manual) 53 % Lymphocytes % 39 % Monocytes % 5 % Eosinophils % 2 % Basophils % 1 % Neutrophils # (Manual) 2.1 TH/MM3 Differential Comment FINAL DIFF MANUAL Platelet Estimate LOW Platelet Morphology Comment NORMAL Red Cell Morphology Comment NORMAL Prothrombin Time 11.6 SEC Prothromb Time International Ratio 1.0 RATIO Activated Partial Thromboplast Time 26.1 SEC Blood Urea Nitrogen 9 MG/DL Creatinine 1.00 MG/DL Random Glucose 86 MG/DL Total Protein 6.9 GM/DL Albumin 3.6 GM/DL Calcium Level 8.2 MG/DL Alkaline Phosphatase 81 U/L Aspartate Amino Transf (AST/SGOT) 16 U/L Alanine Aminotransferase (ALT/SGPT) 22 U/L Total Bilirubin 0.7 MG/DL Sodium Level 141 MEQ/L Potassium Level 4.0 MEQ/L Chloride Level 107 MEQ/L Carbon Dioxide Level 26.5 MEQ/L Anion Gap 8 MEQ/L Estimat Glomerular Filtration Rate 79 ML/MIN Total Creatine Kinase 141 U/L Creatine Kinase MB 0.6 NG/ML Troponin I LESS THAN 0.02 NG/ML MDM Medical Decision Making Medical Screen Exam Complete: Yes Emergency Medical Condition: Yes Medical Record Reviewed: Yes Differential Diagnosis CHEST WALL PAIN V PNA V PERICARDIAL EFFUSION V PE Narrative Course PATIENT WAS NEG FOR PE, PERICARDIAL EFFUSION AND NO PNA NOTED, PT FOUND TO HAVE CHEST WALL PAIN....PAIN IMPROVED BUT UPON REEVALUATION PT STATED HER WEAKNESS HAD NOT IMPROVED AND SHE IS AFRAID THAT SHE WILL START FALLING AGAIN Diagnosis Primary Impression: CHEST WALL PAIN Additional Impression: MS EXACERBATION Admitting Information Admitting Physician Requests: Observation Patient Instructions: General Instructions Condition: Stable Christiano English MD Oct 19, 2016 08:34
[2016-10-19 08:38] VITALS: BP_SYST 134; BP_SYST 136; BP_DIAS 72; BP_DIAS 80; PULSE 72; RESP 18; O2SAT 98
--- NOTE | 2016-10-19 08:45 | RADRPT ---
EXAM DATE/TIME: 10/19/2016 08:36 [facility] COMPARISON: CHEST SINGLE AP, August 08, 2016, 22:56. INDICATIONS : Chest pain. MEDICAL HISTORY : Carcinoma, breast. Non smoker. SURGICAL HISTORY : Hysterectomy. Mastectomy, bilateral. ENCOUNTER: Initial ACUITY: 2 days PAIN SCORE: 10/10 LOCATION: Bilateral chest FINDINGS: A single view of the chest demonstrates the lungs to be symmetrically aerated without evidence of mas s, infiltrate or effusion. The cardiomediastinal contours are unremarkable. Osseous structures are intact. CONCLUSION: Normal examination. Larry Cosme MD on October 19, 2016 at 8:43 Board Certified Radiologist. This report was verified electronically.
[2016-10-19 08:50] LABS: HEMATOCRIT 39.2 % (35.0-46.0); MEAN CELL VOLUME 88.7 FL (80.0-100.0); MEAN CORPUSCULAR HEMOGLOBIN 29.7 PG (27.0-34.0); MEAN CORPUSCULAR HGB CONC 33.5 % (32.0-36.0); PLATELET COUNT 147 TH/MM3 (150-450); RED BLOOD COUNT 4.42 MIL/MM3 (4.00-5.30); RED CELL DISTRIBUTION WIDTH 12.8 % (11.6-17.2); WHITE BLOOD COUNT 3.9 TH/MM3 (4.0-11.0)
[2016-10-19 08:52] LABS: HEMO FLAGS AUTO DIFF
--- NOTE | 2016-10-19 08:54 | EKG ---
Date Performed: 10/19/2016 Time Performed: 08:18:41 PTAGE: 31 years EKG: Sinus rhythm NORMAL ECG NO PREVIOUS TRACING DOCTOR: Larry Styles Interpretating Date/Time 10/19/2016 08:52:59
[2016-10-19 08:56] LABS: APTT (PATIENT) 26.1 SEC (24.3-30.1); PROTHROMBIN TIME - PATIENT 11.6 SEC (9.8-11.6)
[2016-10-19 08:58] LABS: ALT (GPT) 22 U/L (10-53); ANION GAP 8 MEQ/L (5-15); AST (GOT) 16 U/L (15-37); BICARBONATE 26.5 MEQ/L (21.0-32.0); BLOOD UREA NITROGEN 9 MG/DL (7-18); CHLORIDE 107 MEQ/L (98-107); GLOMERULAR FILTRATION RATE 79 ML/MIN (>89); SODIUM (NA) 141 MEQ/L (136-145)
[2016-10-19] MEDS ORDERED: HYDROmorphone HCL PF 1 MG/ML VIAL IV PUSH ONE ×3 (09:00→12:00)
[2016-10-19 09:02] LABS: ALKALINE PHOSPHATASE 81 U/L (45-117); CREATINE KINASE 141 U/L (26-192); TOTAL BILIRUBIN ADULT 0.7 MG/DL (0.2-1.0)
[2016-10-19 09:14] LABS: CKMB 0.6 NG/ML (0.5-3.6)
[2016-10-19 09:23] LABS: BASOPHILS 1 % (0-2); EOSINOPHILS 2 % (0-4); NEUTROPHIL # MANUAL DIFF 2.1 TH/MM3 (1.8-7.7); PLATELET ESTIMATE SMEAR LOW (NORMAL); PLATELET MORPHOLOGY NORMAL (NORMAL); POLYS (SEG NEUTROPHILS) 53 % (16-70); SCAN/DIFF FINAL DIFF MANUAL; WBC DIFF SAMPLE 100
[2016-10-19] MEDS ORDERED: IOHEXOL 350 MG/ML 10 ML VIAL (for RAD DIAG) IVCONTRAST ONE (10:37)
--- NOTE | 2016-10-19 10:41 | RADRPT ---
EXAM DATE/TIME: 10/19/2016 10:21 [facility] COMPARISON: CT PULMONARY ANGIOGRAM, August 09, 2016, 0:44. INDICATIONS : Weakness, chest pain. IV CONTRAST: 75 cc Omnipaque 350 (iohexol) IV RADIATION DOSE: 23.11 CTDIvol (mGy) MEDICAL HISTORY : Carcinoma, breast. Multiple sclerosis. SURGICAL HISTORY : Mastectomy, bilateral. Hysterectomy.Augmentation. ENCOUNTER: Initial ACUITY: 1 day PAIN SCALE: 6/10 LOCATION: Bilateral chest TECHNIQUE: Volumetric scanning of the chest was performed using a pulmonary embolism protocol MIP images were re constructed. Using automated exposure control and adjustment of the mA and/or kV according to patien t size, radiation dose was kept as low as reasonably achievable to obtain optimal diagnostic quality images. DICOM format image data is available electronically for review and comparison. Follow-up recommendations for detected pulmonary nodules are based at a minimum on nodule size and pa tient risk factors according to Fleischner Society Guidelines. FINDINGS: There is a stable pleural-based no left lower lobe. The lungs are clear. Bilateral breast implants ar e noted. There is no adenopathy. There is no evidence of pulmonary embolism. There is no evidence of pneumonia. The osseous structures are intact. CONCLUSION: 1. No evidence of pulmonary embolus. Larry Cosme MD on October 19, 2016 at 10:38 Board Certified Radiologist. This report was verified electronically.
[2016-10-19 10:49] VITALS: BP 111/76; PULSE 61; RESP 18; O2SAT 100
[2016-10-19] MEDS ORDERED: CYCL1TAB29 PO (11:45)
[2016-10-19] MEDS ORDERED: NAPR-239 PO (11:45)
[2016-10-19] MEDS ORDERED: methylPREDNISolone SOD SUCC 125 MG/2 ML VIAL IVP ONE (12:00)
--- NOTE | 2016-10-19 13:07 | HHI.HP ---
[facility] Primary Care Physician Rolly Rogers D.O. Admission Diagnosis MS EXACERBATION, CHEST WALL PAIN Diagnoses: Chief Complaint: chest pain, weakness, falls Travel History International Travel<30 Days: No Contact w/Intl Traveler <30 Da: No Traveled to Known Affected Are: No History of Present Illness Written by Meaghan Al, acting as scribe for Dr. Nolan on 10/19/16 at 13:05. 31-year-old female with history of multiple sclerosis, breast cancer s/p bilateral mastectomy presents with multiple complaints including left breast pain/swelling, chest pain, worsening generalized weakness, and falls. The patient reports a couple days ago she started having left breast pain and increasing swelling. She explains that she has a history of bilateral mastectomy for breast cancer and recently she's had more fullness in the left lower breast. Her plastic surgeon is Dr. Brandon and and MRI of the breast was ordered however denied by her insurance company. She denies any open wound or drainage from the area. Yesterday she then developed chest pains located in the center of the chest without radiation, described as constant tightness and heavy pressure, associated with "flutters" in the chest, shortness of breath, and reports difficulty taking a deep breath. She also reports worsening generalized weakness, worse at the left lower extremity with associated paresthesias. She has been using a walker and cane to get around however it has been much more difficult recently. She fell a few times this week because of the weakness and generalized tremors. Her neurologist is Dr. Nix. She has tried multiple different medications for her MS however has not been on any recently. She previously went to an infusion clinic for IV steroids however none recently. Her last hospitalization for her MS was a few months ago. The patient also reports decreased appetite and nausea, but no abdominal pain or vomiting. Otherwise, the patient denies any other medical complaints at this time including no fevers/chills, cough, congestions, sore throat, or urinary complaints. Review of Systems Except as stated in HPI: all other systems reviewed are Neg Past Family Social History Past Medical History Multiple sclerosis Breast cancer Past Surgical History Bilateral mastectomy and reconstruction Cervical scraping/laser Hysterectomy C-sections x3 Reported Medications None. Allergies: Coded Allergies: lorazepam (Unverified Allergy, Intermediate, Bradycardia, 10/15/16) Active Ordered Medications Current Medications Medications (Trade) Dose Ordered Sig/Dave Route Start Time Stop Time Status Last Admin (NS Flush) 2 ml UNSCH PRN IVF 10/19/16 08:30 Family History Family history positive for breast cancer, colon cancer, heart disease, and diabetes. Some family with heart disease in their 40s Social History Denies any tobacco, alcohol, or illicit drug use. Physical Exam Vital Signs Vital Signs Date Time Temp Pulse Resp B/P (MAP) Pulse Ox O2 Delivery O2 Flow Rate FiO2 10/19/16 10:49 61 18 111/76 (88) 100 Room Air 10/19/16 08:38 98 Room Air 10/19/16 08:38 18 98 Room Air 10/19/16 08:38 73 18 98 Room Air 10/19/16 08:38 72 134/80 (98) 136/72 (93) 10/19/16 08:02 98.1 87 18 118/63 (81) 100 Physical Exam GENERAL: Well-nourished, well-developed young female patient in [facility]. SKIN: Warm and dry. No rash. Left breast with diffuse edema, induration, and TTP , worse at 5o'clock; no erythema, wound, or drainage. HEAD: Normocephalic. Atraumatic. EYES: Pupils equal and round. No scleral icterus. No injection or drainage. ENT: No nasal bleeding or discharge. Mucous membranes pink and moist. NECK: Supple. Trachea midline. CARDIOVASCULAR: Regular rate and rhythm. S1, S2 noted. No murmur appreciated. + anterior chest wall TTP. RESPIRATORY: No accessory muscle use. Clear to auscultation. Breath sounds equal bilaterally. GASTROINTESTINAL: Abdomen soft, non-tender, nondistended. Normoactive bowel sounds x4. MUSCULOSKELETAL: No obvious deformities. Extremities without clubbing, cyanosis , or edema. NEUROLOGICAL: Awake and alert. No obvious cranial nerve deficits. 4/5 strength RUE/LUE, 3/5 strength RLE, 1/5 strength LLE. Normal speech. PSYCHIATRIC: Appropriate mood and affect; insight and judgment normal Laboratory Laboratory Tests Test 10/19/16 08:28 White Blood Count 3.9 Red Blood Count 4.42 Hemoglobin 13.1 Hematocrit 39.2 Mean Corpuscular Volume 88.7 Mean Corpuscular Hemoglobin 29.7 Mean Corpuscular Hemoglobin Concent 33.5 Red Cell Distribution Width 12.8 Platelet Count 147 Mean Platelet Volume 9.8 CBC Comment AUTO DIFF Differential Total Cells Counted 100 Neutrophils % (Manual) 53 Lymphocytes % 39 Monocytes % 5 Eosinophils % 2 Basophils % 1 Neutrophils # (Manual) 2.1 Differential Comment FINAL DIFF MANUAL Platelet Estimate LOW Platelet Morphology Comment NORMAL Red Cell Morphology Comment NORMAL Prothrombin Time 11.6 Prothromb Time International Ratio 1.0 Activated Partial Thromboplast Time 26.1 Blood Urea Nitrogen 9 Creatinine 1.00 Random Glucose 86 Total Protein 6.9 Albumin 3.6 Calcium Level 8.2 Alkaline Phosphatase 81 Aspartate Amino Transf (AST/SGOT) 16 Alanine Aminotransferase (ALT/SGPT) 22 Total Bilirubin 0.7 Sodium Level 141 Potassium Level 4.0 Chloride Level 107 Carbon Dioxide Level 26.5 Anion Gap 8 Estimat Glomerular Filtration Rate 79 Total Creatine Kinase 141 Creatine Kinase MB 0.6 Troponin I LESS THAN 0.02 Result Diagram: 10/19/1682710/19/16827 Imaging Last Impressions Chest X-Ray 10/19/16823 Signed Impressions: Service Date/Time: Wednesday, October 19, 2016 08:36 - CONCLUSION: Normal examination. Larry Cosme MD CT Angiography 10/19/16823 Signed Impressions: Service Date/Time: Wednesday, October 19, 2016 10:21 - CONCLUSION: 1. No evidence of pulmonary embolus. Larry Cosme MD Caprini VTE Risk Assessment Caprini VTE Risk Assessment: Mod/High Risk (score >= 2) Caprini Risk Assessment Model Point Value = 1 Point Value = 2 Point Value = 3 Point Value = 5 Age 41-60 Minor surgery BMI > 25 kg/m2 Swollen legs Varicose veins or History of unexplained or recurrent spontaneous Oral contraceptives or hormone replacement Sepsis (< 1 month) Serious lung disease, including pneumonia (< 1 month) Abnormal pulmonary function Acute myocardial infarction Congestive heart failure (< 1 month) History of inflammatory bowel disease Medical patient at bed rest Age 61-74 Arthroscopic surgery Major open surgery (> 45 min) Laparoscopic surgery (> 45 min) Malignancy Confined to bed (> 72 hours) Immobilizing plaster cast Central venous access Age >= 75 History of VTE Family history of VTE Factor V Leiden Prothrombin [id number] Lupus anticoagulant Anticardiolipin antibodies Elevated serum homocysteine Heparin-induced thrombocytopenia Other congenital or acquired thrombophilia Stroke (< 1 month) Elective arthroplasty Hip, pelvis, or leg fracture Acute spinal cord injury (< 1 month) Prophylaxis Regimen Total Risk Factor Score Risk Level Prophylaxis Regimen 0-1 Low Early ambulation 2 Moderate Order ONE of the following: *Sequential Compression Device (SCD) *Heparin 5000 units SQ BID 3-4 Higher Order ONE of the following medications: *Heparin 5000 units SQ TID *Enoxaparin/Lovenox 40 mg SQ daily (WT < 150 kg, CrCl > 30 mL/min) *Enoxaparin/Lovenox 30 mg SQ daily (WT < 150 kg, CrCl > 10-29 mL/min) *Enoxaparin/Lovenox 30 mg SQ BID (WT < 150 kg, CrCl > 30 mL/min) AND/OR *Sequential Compression Device (SCD) 5 or more Highest Order ONE of the following medications: *Heparin 5000 units SQ TID (Preferred with Epidurals) *Enoxaparin/Lovenox 40 mg SQ daily (WT < 150 kg, CrCl > 30 mL/min) *Enoxaparin/Lovenox 30 mg SQ daily (WT < 150 kg, CrCl > 10-29 mL/min) *Enoxaparin/Lovenox 30 mg SQ BID (WT < 150 kg, CrCl > 30 mL/min) AND *Sequential Compression Device (SCD) Assessment and Plan Problem List: (1) Multiple sclerosis exacerbation ICD Code: G35 - Multiple sclerosis (2) Left breast lump ICD Code: N63 - Unspecified lump in breast (3) Atypical chest pain ICD Code: R07.89 - Other chest pain Assessment and Plan 31-year-old female with history of multiple sclerosis, breast cancer s/p bilateral mastectomy presents with multiple complaints including left breast pain/swelling, chest pain, worsening generalized weakness, and falls. Multiple Sclerosis Exacerbation: patient with worsening weakness and recent falls. Follows with neurologist Dr. Nix as outpatient. -Start on IV Solumedrol 500mg bid -Consult neurology -Monitor neuro checks -PT/OT consulted -supportive treatment with IVF, pain control and antiemetics prn Chest Pain: atypical. Possibly related to MS flare as above vs musculoskeletal. Pain reproducible on exam. CT-PA images reviewed, negative for PE, no acute findings. CXR unremarkable. Initial troponin negative. -Rule out ACS with serial cardiac enzymes and EKGs -Monitor on telemetry -IV morphine prn Left Breast Pain/Swelling: unclear etiology, rule out abscess vs recurrent mass. +edema/induration on exam. Patient known to Dr. Brandon. -Discussed extensively with radiologist Dr. Stacy, breast MRI not done in hospital and breast U/S not useful; patient needs to have breast MRI done as outpatient -Consult plastic surgery for assistance -Pain control with [place] prn and IV morphine prn DVT Prophylaxis: Lovenox Discussed Condition With Patient, family at bedside, ER MD Attending Statement This note was transcribed by jayjya Al. I, Dr. Regis Nolan personally performed the history, physical exam, and medical decision making; and confirmed the accuracy of the information in the transcribed note. Authenticated by Dr. Regis Nolan on 10/19/16 at 15:29. Meaghan Al PA-C Oct 19, 2016 13:07 Regis Nolan DO Oct 19, 2016 15:23
[2016-10-19] MEDS ORDERED: NALOXONE HCL 0.4 MG/ML AMP IV PRN (13:30)
[2016-10-19] MEDS ORDERED: MAGNESIUM HYDROXIDE SUSP 30 ML CUP PO PRN (13:30)
[2016-10-19] MEDS ORDERED: MORPHINE SULFATE 4 MG/ML INJ IV PRN (13:30)
[2016-10-19] MEDS ORDERED: SODIUM CHLORIDE 0.9% FLUSH 10 ML FLUSH IV FLUSH PRN (13:30)
[2016-10-19] MEDS ORDERED: SENNOSIDES 8.6 MG TAB PO PRN (13:30)
[2016-10-19] MEDS ORDERED: BISACODYL 10 MG SUPP RECTAL PRN (13:30)
[2016-10-19] MEDS ORDERED: ACETAMINOPHEN/HYDROcodone 325 MG/5 MG TAB PO PRN (13:30)
[2016-10-19] MEDS ORDERED: methylPREDNISolone SOD SUCC 125 MG/2 ML VIAL IV PUSH ONE (13:45)
[2016-10-19] MEDS: SODIUM CHLOR 0.9% 1000 ML INJ 1,000 ML IV SCH ×2 (13:47→23:50)
[2016-10-19] MEDS: ONDANSETRON HCL 4 MG/2 ML VIAL IVP PRN ×2 (13:48→15:46)
--- NOTE | 2016-10-19 14:19 | RADRPT ---
EXAM DATE/TIME: 10/19/2016 13:46 [facility] COMPARISON: CT THORAX W CONTRAST, October 15, 2016, 21:03. INDICATIONS : Breast pain. MEDICAL HISTORY : Carcinoma, breast. Blurry vision. Multiple sclerosis. Dizziness. Headache. Migraine. Numbness. Ch est pain. Ovarian cysts. Right breast abscess. SURGICAL HISTORY : Tonsillectomy. Hysterectomy. section. Bilateral mastectomy. Lumpectomy. ENCOUNTER: Initial ACUITY: 1 month PAIN SCORE: 1/10 LOCATION: Left breast. FINDINGS: Patient has breast implants in place with regular breast tissue. There is no mass. [facility]ful [facility] followup and perhaps MRI is suggested in this woman with history of carcinoma breast . CONCLUSION: Negative, please above discussion. Flavio Stacy MD FACR on October 19, 2016 at 14:14 Board Certified Radiologist. This report was verified electronically.
[2016-10-19] MEDS: ENOXAPARIN SODIUM 30 MG/0.3 ML SYRINGE SQ SCH (15:48)
[2016-10-19] MEDS: ACETAMINOPHEN/HYDROcodone 325 MG/7.5 MG TAB PO PRN ×2 (16:17→23:43)
[2016-10-19 16:59] VITALS: BP 102/63; PULSE 54; RESP 20; TEMP 96.8; O2SAT 96
[2016-10-19 17:55] LABS: CREATINE KINASE 149 U/L (26-192)
[2016-10-19 19:53] VITALS: BP 100/60; PULSE 57; RESP 16; TEMP 98.1; O2SAT 99
--- NOTE | 2016-10-19 20:01 | MB ---
cc: IESHA VELASQUEZ M.D. DATE OF 1985, 31 years old REASON FOR CONSULTATION MS exacerbation. HISTORY OF THE PRESENT ILLNESS This is a 31-year-old woman with multiple sclerosis diagnosed about 3 years ago, history of breast cancer, mastectomy comes in because of weakness more over the left side with tingling, urinary incontinence, feeling like her MS is exacerbating. Also with complaints of some left breast swelling that primary team as addressing. She has been using a walker and a cane to get around the house but it is becoming more difficult. She is getting tremors as well as pins and needle sensation. Her neurologist is Dr. Rincon. Her last MRI she states may have been 8 or 9 months ago. She has been on Tecfidera and Aubagio in the past with exacerbation but he is trying to put her on Copaxone. PAST MEDICAL HISTORY As stated. PAST SURGICAL HISTORY 1. Mastectomy with reconstruction. 2. Cervical scraping. 3. Laser hysterectomy. 4. C section. MEDICATIONS Right now at home are none. ALLERGIES LORAZEPAM. FAMILY HISTORY Breast cancer, colon cancer, heart disease, diabetes. SOCIAL HISTORY Denies tobacco, alcohol or drugs. PHYSICAL EXAMINATION VITAL SIGNS: On exam her vitals temperature is 96.8, pulse 54, respiratory rate 20, blood pressure 102/63, sating at 96% room air. NECK: Supple. CARDIOVASCULAR: Heart is regular. NEUROLOGIC: She is awake, alert. She is fluent. Pupils reactive. Visual devine full. Face symmetrical. Tongue midline. Motor velázquez she does exhibit some weakness and tremor more of the left hand compared to the right with a Blake's sign. Brisk reflexes throughout. She cannot lift her left leg off the bed. She is at best 2/5. DTRs are brisk as stated, in the lower extremities as well. Sensory she has loss of pain and light touch temperature over the left side. Gait cannot be assessed at this time. LABORATORY DATA labs are reviewed. White count 3.9, platelets 147,000. Chemistries GFR 79, calcium 8.2. Coag panel is normal. IMAGING CT angiography negative for pulmonary embolus. Chest x-ray negative. Ultrasound breast negative. IMPRESSION MS likely exacerbation in a 31-year woman with a known history of MS. Recommend 500 mg Solu-Medrol twice daily for at least 3 days. We will get an MRI of the brain, cervical spine and thoracic spine with and without contrast. She will need PT and OT evaluation as well and hopefully maybe case management can assist her with obtaining the prescription from Dr. Rincon for the Copaxone. Continue current care as outlined. MD KYRA Gonzalez/VANNESA /6:16 PM /7:48 PM
[2016-10-19] MEDS: methylPREDNISolone SO SUCC INJ 500 MG in DEXTROSE 5% IN WATER 100ML INJ 100 ML IV SCH ×2 (23:43)
[2016-10-19] MEDS: DOCUSATE SODIUM 50 MG/SENNA 8.6 MG TAB PO SCH (23:43)
[2016-10-19] MEDS: SODIUM CHLORIDE 0.9% FLUSH 10 ML FLUSH IV FLUSH SCH (23:44)
[2016-10-20] VITALS (13 sets, daily range): BP systolic 96–120; BP diastolic 57–98; PULSE 52–142; RESP 14–20; TEMP 96.6–98.7; O2SAT 98–100
[2016-10-20 00:19] LABS: CREATINE KINASE 159 U/L (26-192)
--- NOTE | 2016-10-20 05:36 | MB ---
cc: WARREN CHAVEZ M.D. DATE OF CONSULTATION 10/19/2016 REASON FOR CONSULTATION Left breast swelling. The patient is status post bilateral breast reconstruction with silicone gel implants. HISTORY This is a 31-year-old black female who was diagnosed with left breast cancer a couple of years ago. 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 The patient has teardrop highly cohesive gel implants. The patient started noticing left breast swelling approximately 2 months ago in a slow fashion. She also has an ongoing issue with multiple sclerosis since 2013 and she is on multiple medications including high dose of steroids. The patient did not have any injury or rash or any pimple boils or any kind of infectious problem on the left side. She did not notice any swelling of the left upper extremity, no red streaking. She did not have any fever. The swelling initially was confined to the outer aspect of the left breast reconstruction flap. Currently it is covering the entire breast. The left breast is approximately 5-10% larger than the similar reconstruction on the right side. The patient states that the two sides were reasonably equal looking prior to her current problem. The patient is also feeling pain in the left breast, somewhat on the lateral outer aspect more in the depths of the tissue and not so much in the skin. The skin is numb to touch from the surgery. The patient denies having any other skin rash. She has chronic skin or lymphadenopathy type of issues. Her multiple sclerosis is being treated. The patient is not diabetic. No hypertension. No history of any sickle cell issue either. PAST MEDICAL HISTORY The patient's other medical history includes - 1. C-sections x 3. 2. Hysterectomy. 3. Bilateral mastectomy and reconstruction. ALLERGIES The patient is allergic to LORAZEPAM. CURRENT MEDICATIONS LISTED Steroids which are being given IV. SOCIAL HISTORY She does not smoke. No alcohol or drug abuse. FAMILY HISTORY There is a family history of breast cancer and diabetes and cardiac issues. PHYSICAL EXAMINATION GENERAL: The examination shows a 31-year-old black female in the emergency room bed setting. She is alert, cooperative, not in distress. VITAL SIGNS: The vital signs are normal on the monitor. The patient is able to move around freely in the bed. The general examination is grossly acceptable. The local examination starting with the neck does not show any thyromegaly or neck masses or any sign of edema above the cervical area. The left upper extremity arm and the forearm are again normal and similar to the right side. No lymphedema or lymphatic streaking noted. Movement of the both extremities are relatively normal and free as well. The local examination of the both breasts shows bilaterally reconstructed breast with transverse oblique incisions, areola sparing type of surgery. The implants are in good position. They seem to have good spacing between the two sides and are of the teardrop design. The flap on the right breast is mostly uniform, normal healing; no keloids or hypertrophic scars. The left breast shows edematous skin mostly on the peripheral half of the breast. The central area of the breast is actually showing strong adhesions of the skin to the underlying tissue, probably the junction of the pectoralis major and the dermal matrix graft. The swelling of the breast seems to be mostly in the skin and subcutaneous planes. The breast skin is actually somewhat cool to touch. There is no increased temperature in any part of the breast. The swelling appears to be mostly soft tissue edema but not clearly pitting. It is not so firm to touch and there is no peau d'orange formation on the skin even though the skin pores are somewhat more prominent compared to the right. It is not showing the sign of any lymphatic edema involving the flap itself. The implants are moderately firm are due to the nature of the implants themselves. They are slightly affixed to the chest wall but otherwise there is no indication of any fluid pocket surrounding the implant. The axillary areas are also clear. No rashes or any sign of infection or injury. The patient has brought in reports from two weeks ago from the [place] where she had gone to the [facility] and an ultrasound was done. The report actually mentions the right breast, however, the patient said that her left breast was the one that was examined and it is a typing mistake. The report does mention possibility a thin layer of fluid in front of the implant in the central position. Subsequent to that, today the patient had a CT scan of the chest and an ultrasound of the breast as well and both of them do not show any fluid. The actual images were printed from the CT scan to explain it to the patient. There is no clear sign of any fluid collection in the periprosthetic space. The patient was seeing Dr. Brandon who has done the reconstruction. She was supposed to go to his office after the original ultrasound in [place]. An MRI was suggested by the radiologist at that time as well and the MRI was rejected by her insurance company which [employer]. The patient has not seen Dr. Brandon since that episode. Her current complaint is, if her cancer is coming back and if there was a need to do surgery to drain any fluid from inside the breast and examine her for cancer as well. RECOMMENDATIONS A prolonged discussion was carried out with the patient showing her the current radiological studies and also the fact that the report from [place] may be possibly looking at the acellular dermal matrix in front of the implant, it is not clinically apparent that there is any fluid in front of the implant and also the flap and the underlying dermal matrix are firmly adherent. The edema and the swelling of the flap soft tissue, it is not clear of the actual cause for it. There is no infectious etiology. By history it does not clinically have an infectious look to it. As far as any edema, the swelling does not appear to be a lymphedema. It may be a flap edema itself but again it is not a pitting edema. As far as any neoplastic infiltrate in the skin, it is clinically not likely because of the process being relatively acute in nature in the last two weeks in particular and approximately two months that it is involving the entire breast in a circumferential manner sparing only the central part. The CT scan also does not show any intracapsular lumps or thickening. The exact cause of the soft tissue swelling remains unknown at this point. The patient was advised that in terms of treatment, surgery is not indicated and it would not change anything other than subjecting her to a potential loss of the reconstruction. As far as the local conservative care, she may use intermittent application of cold compresses but not for a prolonged period and not to freeze the skin. In the event the possibility that the etiology of the skin swelling cannot be determined, a skin biopsy may be considered but that should be at the end of the list for possible interventions. The patient in the meantime can continue in the medical treatment, a prophylactic course of antibiotic can also be used. Incidentally, her blood counts are within normal range and there is no neutrophilia. The effect of the steroid therapy on the blood count is also to be considered. The prophylactic antibiotic should be tailored to cover common skin organisms such as Staph epi and Staph aureus and possibly Streptococcus. I will continue to follow the patient. After the patient improves and gets discharged from the hospital, she will need to return to Dr. Brandon. The patient will not be able to follow up with me since I do not participate in any insurance plans anymore and also I cannot see any new insurance patients in my office at this time. signed, not fully reviewed MD LADAN Adams/KG /7:29 PM /4:59 AM MTDDelmi
[2016-10-20 07:49] LABS: AUTOMATED NEUTROPHIL # 5.8 TH/MM3 (1.8-7.7); BASOPHIL % 0.2 % (0.0-2.0); HEMO FLAGS DIFF FINAL; LYMPH % 8.9 % (9.0-44.0); LYMPHOCYTE # 0.6 TH/MM3 (1.0-4.8); MEAN CELL VOLUME 89.2 FL (80.0-100.0); MEAN CORPUSCULAR HEMOGLOBIN 29.4 PG (27.0-34.0); MEAN CORPUSCULAR HGB CONC 32.9 % (32.0-36.0); MONO % 0.7 % (0.0-8.0); NEUT % 90.2 % (16.0-70.0); PLATELET COUNT 155 TH/MM3 (150-450); RED CELL DISTRIBUTION WIDTH 12.6 % (11.6-17.2); WHITE BLOOD COUNT 6.5 TH/MM3 (4.0-11.0)
[2016-10-20] MEDS: ACETAMINOPHEN/HYDROcodone 325 MG/7.5 MG TAB PO PRN ×3 (08:06→20:59)
[2016-10-20] MEDS: SODIUM CHLORIDE 0.9% FLUSH 10 ML FLUSH IV FLUSH SCH ×2 (08:06→21:00)
[2016-10-20] MEDS: DOCUSATE SODIUM 50 MG/SENNA 8.6 MG TAB PO SCH ×2 (08:06→21:00)
[2016-10-20 08:10] LABS: BICARBONATE 24.4 MEQ/L (21.0-32.0); POTASSIUM 3.9 MEQ/L (3.5-5.1)
[2016-10-20] MEDS: methylPREDNISolone SO SUCC INJ 500 MG in DEXTROSE 5% IN WATER 100ML INJ 100 ML IV SCH ×4 (08:40→23:00)
[2016-10-20] MEDS: SODIUM CHLOR 0.9% 1000 ML INJ 1,000 ML IV SCH ×2 (09:48→17:07)
[2016-10-20] MEDS ORDERED: KETOROLAC TROMETHAMINE 30 MG/ML (IVP) VIAL IV PUSH ONE (11:15)
--- NOTE | 2016-10-20 11:18 | HHI.PR ---
Subjective Remarks The pt said the plastic surgeon didn't listen to her. She was still shaky. She has not been eating much because of her shakiness. She worked with PT. Still has chest pressure/ pain but she says the pills help. Discussed with nursing. Objective Vitals Vital Signs Date Time Temp Pulse Resp B/P (MAP) Pulse Ox O2 Delivery O2 Flow Rate FiO2 10/20/16 08:00 96.6 52 18 105/65 (78) 100 10/20/16 04:03 97.0 60 18 105/66 (79) 100 10/20/16 01:36 54 10/20/16 01:00 98.0 56 18 116/74 (88) 99 10/19/16 19:53 98.1 57 16 100/60 (73) 99 10/19/16 16:59 96.8 54 20 102/63 (76) 96 I/O 10/19/16 10/19/16 10/19/16 10/20/16 10/20/16 10/20/16 06:59 14:59 22:59 06:59 14:59 22:59 Intake Total 240 ml Balance 240 ml Intake Oral 240 ml # Voids 2 # Bowel Movements 0 Result Diagram: 10/20/16 0724 10/20/16 0724 Imaging Last Impressions Chest X-Ray 10/19/16823 Signed Impressions: Service Date/Time: Wednesday, October 19, 2016 08:36 - CONCLUSION: Normal examination. Larry Cosme MD CT Angiography 10/19/16 0824 Signed Impressions: Service Date/Time: Wednesday, October 19, 2016 10:21 - CONCLUSION: 1. No evidence of pulmonary embolus. Larry Cosme MD Breast Ultrasound 10/19/16 0000 Signed Impressions: Service Date/Time: Wednesday, October 19, 2016 13:46 - CONCLUSION: Negative, please above discussion. Flavio Stacy MD FACR Objective Remarks GENERAL: Well-nourished, well-developed young female patient in [facility]. SKIN: Warm and dry. No rash. Left breast with diffuse edema, induration, and TTP , worse at 5o'clock; no erythema, wound or drainage. HEAD: Normocephalic. Atraumatic. EYES: Pupils equal and round. No scleral icterus. No injection or drainage. ENT: No nasal bleeding or discharge. Mucous membranes pink and moist. NECK: Supple. Trachea midline. CARDIOVASCULAR: Regular rate and rhythm. S1, S2 noted. No murmur appreciated. + anterior chest wall TTP. RESPIRATORY: No accessory muscle use. Clear to auscultation. Breath sounds equal bilaterally. GASTROINTESTINAL: Abdomen soft, non-tender, nondistended. Normoactive bowel sounds x4. MUSCULOSKELETAL: No obvious deformities. Extremities without clubbing, cyanosis , or edema. NEUROLOGICAL: Awake and alert. No obvious cranial nerve deficits. 4/5 strength RUE/LUE, 3/5 strength RLE, 1/5 strength LLE. Normal speech. Tremors in RUE. PSYCHIATRIC: Appropriate mood and affect; insight and judgment normal. Medications and IVs Current Medications Medications (Trade) Dose Ordered Sig/Dave Route Start Time Stop Time Status Last Admin Sodium Chloride 1,000 ml @ 100 mls/hr Q10H IV 10/19/16 14:00 10/19/16 23:50 (NS Flush) 2 ml UNSCH PRN IV FLUSH 10/19/16 13:30 (NS Flush) 2 ml BID IV FLUSH 10/19/16 21:00 10/20/16 08:06 (Zofran Inj) 4 mg Q6H PRN IVP 10/19/16 13:30 10/19/16 15:46 (Cro[place]on 5-325 Mg) 1 tab Q4H PRN PO 10/19/16 13:30 ([place] 7.5-325 Mg) 1 tab Q4H PRN PO 10/19/16 13:30 10/20/16 08:06 (Morphine Inj) 4 mg Q4H PRN IV 10/19/16 13:30 (Narcan Inj) 0.4 mg UNSCH PRN IV 10/19/16 13:30 (Maryjane-Colace) 1 tab BID PO 10/19/16 21:00 10/20/16 08:06 (Milk Of Magnesia Liq) 30 ml Q12H PRN PO 10/19/16 13:30 (Senokot) 17.2 mg Q12H PRN PO 10/19/16 13:30 (Dulcolax Supp) 10 mg DAILY PRN RECTAL 10/19/16 13:30 Methylprednisolone Sodium Succinate 500 mg/Dextrose 100 ml @ 200 mls/hr BID IV 10/19/16 21:00 10/20/16 08:40 (Lovenox Inj) 30 mg Q24H SQ 10/19/16 16:00 10/19/16 15:48 A/P Problem List: (1) Multiple sclerosis exacerbation ICD Code: G35 - Multiple sclerosis (2) Left breast lump ICD Code: N63 - Unspecified lump in breast (3) Atypical chest pain ICD Code: R07.89 - Other chest pain Assessment and Plan 31-year-old female with history of multiple sclerosis, breast cancer s/p bilateral mastectomy presents with multiple complaints including left breast pain/swelling, chest pain, worsening generalized weakness, and falls. Multiple Sclerosis Exacerbation: patient with worsening weakness and recent falls. Follows with neurologist Dr. Nix as outpatient. Neurology consult appreciated. -continue IV Solumedrol 500mg bid. -follow up with neurology. MRIs ordered. -Monitor neuro checks -PT/OT consulted -supportive treatment with IVF, pain control and antiemetics prn Chest Pain: atypical. Possibly related to MS flare as above vs musculoskeletal. Pain reproducible on exam. CT-PA images reviewed, negative for PE, no acute findings. CXR unremarkable. Trops flat. EKGs without acute ischemia. -Monitor on telemetry -IV morphine prn. Add Toradol to treat costochondritis. Left Breast Pain/Swelling: unclear etiology, rule out abscess vs recurrent mass. +edema/induration on exam. Patient known to Dr. Brandon. -Discussed extensively with radiologist Dr. Stacy, breast MRI not done in hospital and breast U/S not useful; patient needs to have breast MRI done as outpatient -Consult plastic surgery for assistance. No indication for surgery at this time. The pt will need to follow up w/ Dr. Barndon as an outpt. -Pain control. DVT Prophylaxis: Lovenox Discharge Planning Will need IV Solumedrol for a few more days. MRIs pending. Regis Nolan DO Oct 20, 2016 11:18
[2016-10-20] MEDS ORDERED: LORazepam 2 MG/ML VIAL ONE (15:51)
[2016-10-20] MEDS ORDERED: MIDAZOLAM HCL 5 MG/ML VIAL (1 ML) ONE (15:57)
[2016-10-20] MEDS ORDERED: MIDAZOLAM HCL 5 MG/ML VIAL (1 ML) IV ONE (16:00)
[2016-10-20] MEDS ORDERED: LORazepam 2 MG/ML VIAL IV ONE (16:30)
[2016-10-20] MEDS: ENOXAPARIN SODIUM 30 MG/0.3 ML SYRINGE SQ SCH (17:07)
--- NOTE | 2016-10-20 18:38 | PD.PLAS.PN ---
Subjective Remarks Patient had a seizure this afternoon, she is in ICU at present. Is being sedated with versed. Able to communicate when spoken to. Still has some pain in the left breast, can not localize it other than pointing to the lateral aspect on the chest wall. Left breast swelling seems slightly increased, more of the center is being involved and the periphery is more edematous. Again, no warmth to touch in multiple places on the breast. Inside implant feels a bit more obscured to palpation. She has not been started on any prophylactic antibiotics as yet, I had recommended in yesterday's consult. Will start IV clindamycin at this time, it can be changed by the medical team to if they feel so. Also, may need to get ID specialist involved - I will leave it to the medical team to decide. The reason for MRI being not done was the lack of dedicated breast coils machine in the hospital - however, she has already been refused a breast MRI by the Medicaid in the out patient setting. I think we can still get a regular MRI of the chest while she is in the hospital and may need to repeat an ultrasound of the breast, essentially looking for any sign of intracapsular fluid or any localizing area of infectious origin ?? Discussed the possibility that if the left breast needs to be explored surgically, it may end up with losing the reconstruction - patient understands and is willing to go ahead should the need arise. Will ask the OR to get a back up implant ordered first thing in the am and hold it in the hospital for a few days. Vital Signs Date Time Temp Pulse Resp B/P (MAP) Pulse Ox O2 Delivery O2 Flow Rate FiO2 10/20/16 16:00 100 Nasal Cannula 3.00 10/20/16 15:55 98 10/20/16 15:55 99 Non-Rebreather 15.00 10/20/16 15:45 140 120/98 (105) 100 10/20/16 15:40 142 120/98 (105) 100 10/20/16 12:00 97.5 62 18 115/71 (86) 100 10/20/16 08:05 64 10/20/16 08:00 96.6 52 18 105/65 (78) 100 10/20/16 04:03 97.0 60 18 105/66 (79) 100 10/20/16 01:36 54 10/20/16 01:00 98.0 56 18 116/74 (88) 99 10/19/16 19:53 98.1 57 16 100/60 (73) 99 I/O 10/19/16 10/19/16 10/19/16 10/20/16 10/20/16 10/20/16 07:00 15:00 23:00 07:00 15:00 23:00 Intake Total 240 ml Balance 240 ml Intake Oral 240 ml # Voids 2 # Bowel Movements 0 Laboratory Tests Test 10/19/16 23:18 10/20/16 07:24 Total Creatine Kinase 159 Troponin I LESS THAN 0.02 White Blood Count 6.5 Red Blood Count 4.60 Hemoglobin 13.5 Hematocrit 41.0 Mean Corpuscular Volume 89.2 Mean Corpuscular Hemoglobin 29.4 Mean Corpuscular Hemoglobin Concent 32.9 Red Cell Distribution Width 12.6 Platelet Count 155 Mean Platelet Volume 9.7 Neutrophils (%) (Auto) 90.2 Lymphocytes (%) (Auto) 8.9 Monocytes (%) (Auto) 0.7 Eosinophils (%) (Auto) 0.0 Basophils (%) (Auto) 0.2 Neutrophils # (Auto) 5.8 Lymphocytes # (Auto) 0.6 Monocytes # (Auto) 0.0 Eosinophils # (Auto) 0.0 Basophils # (Auto) 0.0 CBC Comment DIFF FINAL Differential Comment Blood Urea Nitrogen 9 Creatinine 0.89 Random Glucose 131 Calcium Level 8.5 Sodium Level 137 Potassium Level 3.9 Chloride Level 105 Carbon Dioxide Level 24.4 Anion Gap 8 Estimat Glomerular Filtration Rate 90 Result Diagram: 10/20/16 0724 10/20/16 0724 Osito Germain MD Oct 20, 2016 18:38
[2016-10-20] MEDS: CLINDAMYCIN INJ 600 MG in SODIUM CHLORIDE 0.9% INJ 100 ML IV SCH (20:00)
--- NOTE | 2016-10-20 20:10 | EKG ---
Date Performed: 10/19/2016 Time Performed: 19:17:15 PTAGE: 31 years EKG: SINUS BRADYCARDIA LOW QRS VOLTAGE IN PRECORDIAL LEADS POSSIBLE RIGHT VENTRICULAR CONDUCTION DELAY BORDERLINE ECG PREVIOUS TRACING : 10/19/2016 08.18 DOCTOR: Amos Andino Interpretating Date/Time 10/20/2016 20:06:18
[2016-10-21] VITALS (12 sets, daily range): BP systolic 93–117; BP diastolic 58–74; PULSE 52–75; RESP 12–25; TEMP 98.6–98.8; O2SAT 98–100
[2016-10-21] MEDS: CLINDAMYCIN INJ 600 MG in SODIUM CHLORIDE 0.9% INJ 100 ML IV SCH ×3 (01:22→14:14)
[2016-10-21] MEDS: ACETAMINOPHEN/HYDROcodone 325 MG/7.5 MG TAB PO PRN ×3 (01:23→20:12)
[2016-10-21] MEDS: MIDAZOLAM HCL 2 MG/2 ML VIAL IV PUSH PRN ×3 (01:29→20:22)
[2016-10-21] MEDS: SODIUM CHLOR 0.9% 1000 ML INJ 1,000 ML IV SCH ×2 (05:17→15:46)
[2016-10-21] MEDS: SODIUM CHLORIDE 0.9% FLUSH 10 ML FLUSH IV FLUSH SCH ×2 (08:21→20:13)
[2016-10-21] MEDS: DOCUSATE SODIUM 50 MG/SENNA 8.6 MG TAB PO SCH ×2 (08:21→20:13)
[2016-10-21] MEDS: methylPREDNISolone SO SUCC INJ 500 MG in DEXTROSE 5% IN WATER 100ML INJ 100 ML IV SCH ×6 (08:22→20:12)
--- NOTE | 2016-10-21 10:22 | HHI.PR ---
Subjective Remarks s/p sz x 2 new onset now in icu tired somewhat looks postictal mom at bedside. Objective Vital Signs Date Time Temp Pulse Resp B/P (MAP) Pulse Ox O2 Delivery O2 Flow Rate FiO2 10/21/16 10:08 14 10/21/16 09:13 100 Nasal Cannula 2.00 10/21/16 08:00 98.8 66 14 107/65 (79) 100 10/21/16 08:00 60 10/21/16 04:00 98.7 52 12 109/68 (82) 100 10/21/16 00:00 98.6 71 12 102/58 (73) 100 10/20/16 23:00 56 10/20/16 21:12 100 Nasal Cannula 2.00 10/20/16 20:00 98.3 57 14 96/62 (73) 98 10/20/16 16:00 100 Nasal Cannula 3.00 10/20/16 16:00 70 10/20/16 16:00 98.7 70 20 98/57 (71) 100 10/20/16 15:55 98 10/20/16 15:55 99 Non-Rebreather 15.00 10/20/16 15:45 140 120/98 (105) 100 10/20/16 15:40 142 120/98 (105) 100 10/20/16 12:00 97.5 62 18 115/71 (86) 100 I/O 10/20/16 10/20/16 10/20/16 10/21/16 10/21/16 10/21/16 07:00 15:00 23:00 07:00 15:00 23:00 Intake Total 240 ml 304 ml 240 ml Balance 240 ml 304 ml 240 ml Intake Oral 240 ml 240 ml IV Total 304 ml # Voids 2 0 1 # Bowel Movements 0 Result Diagram: 10/20/1624 10/20/16 0724 Imaging pending mri brain c and t spine w/wo contrat pending eeg. Procedures awake alert follows hypophonic perrla tremors of hands not new gen weakness gait not tested. Assessment and Plan Assessment and Plan ms exacerbation-complete 3 days of iv solumedrol 500 mg bid give slowly -doubt cause of sz-pt has had solumedrol many times before -needs scans sz new onset-eeg and [facility],scans . sz precaution ativan or versed prn. w/u for left breast pain/mass on implant per team. Norma Esquivel MD Oct 21, 2016 10:22
--- NOTE | 2016-10-21 10:23 | HHI.PR ---
Subjective Remarks The patient said she was able to talk but was having a harder time talking this morning. Per nursing she had another seizure this morning that resolved with some Versed. Family was at the bedside. They were curious about the MRI of the patient's chest. The patient's family reports the patient was having some difficulty eating this morning. Discussed with nursing and neurology. Objective Vitals Vital Signs Date Time Temp Pulse Resp B/P (MAP) Pulse Ox O2 Delivery O2 Flow Rate FiO2 10/21/16 10:08 14 10/21/16 09:13 100 Nasal Cannula 2.00 10/21/16 08:00 98.8 66 14 107/65 (79) 100 10/21/16 08:00 60 10/21/16 04:00 98.7 52 12 109/68 (82) 100 10/21/16 00:00 98.6 71 12 102/58 (73) 100 10/20/16 23:00 56 10/20/16 21:12 100 Nasal Cannula 2.00 10/20/16 20:00 98.3 57 14 96/62 (73) 98 10/20/16 16:00 100 Nasal Cannula 3.00 10/20/16 16:00 70 10/20/16 16:00 98.7 70 20 98/57 (71) 100 10/20/16 15:55 98 10/20/16 15:55 99 Non-Rebreather 15.00 10/20/16 15:45 140 120/98 (105) 100 10/20/16 15:40 142 120/98 (105) 100 10/20/16 12:00 97.5 62 18 115/71 (86) 100 I/O 10/20/16 10/20/16 10/20/16 10/21/16 10/21/16 10/21/16 07:00 15:00 23:00 07:00 15:00 23:00 Intake Total 240 ml 304 ml 240 ml Balance 240 ml 304 ml 240 ml Intake Oral 240 ml 240 ml IV Total 304 ml # Voids 2 0 1 # Bowel Movements 0 Result Diagram: 10/20/1672310/20/16723 Imaging Last Impressions Chest X-Ray 10/19/16823 Signed Impressions: Service Date/Time: Wednesday, October 19, 2016 08:36 - CONCLUSION: Normal examination. Larry Cosme MD CT Angiography 10/19/16 0824 Signed Impressions: Service Date/Time: Wednesday, October 19, 2016 10:21 - CONCLUSION: 1. No evidence of pulmonary embolus. Larry Cosme MD Breast Ultrasound 10/19/16 0000 Signed Impressions: Service Date/Time: Wednesday, October 19, 2016 13:46 - CONCLUSION: Negative, please above discussion. Flavio Satcy MD FACR Objective Remarks GENERAL: Well-nourished, well-developed young female patient in NAD. SKIN: Warm and dry. No rash. Left breast with diffuse edema, induration, and TTP , worse at 5o'clock; no erythema, wound or drainage. HEAD: Normocephalic. Atraumatic. EYES: Pupils equal and round. No scleral icterus. No injection or drainage. ENT: No nasal bleeding or discharge. Mucous membranes pink and moist. NECK: Supple. Trachea midline. CARDIOVASCULAR: Regular rate and rhythm. S1, S2 noted. No murmur appreciated. + anterior chest wall TTP. RESPIRATORY: No accessory muscle use. Clear to auscultation. Breath sounds equal bilaterally. GASTROINTESTINAL: Abdomen soft, non-tender, nondistended. Normoactive bowel sounds x4. MUSCULOSKELETAL: No obvious deformities. Extremities without clubbing, cyanosis , or edema. NEUROLOGICAL: Somewhat lethargic. No obvious cranial nerve deficits. 4/5 strength RUE/LUE, 3/5 strength RLE, 1/5 strength LLE. Normal speech. Tremors in RUE. PSYCHIATRIC: Slightly flattened affect. Medications and IVs Current Medications Medications (Trade) Dose Ordered Sig/Dave Route Start Time Stop Time Status Last Admin Sodium Chloride 1,000 ml @ 100 mls/hr Q10H IV 10/19/16 14:00 10/21/16 05:17 (NS Flush) 2 ml UNSCH PRN IV FLUSH 10/19/16 13:30 (NS Flush) 2 ml BID IV FLUSH 10/19/16 21:00 10/21/16 08:21 (Zofran Inj) 4 mg Q6H PRN IVP 10/19/16 13:30 10/19/16 15:46 (Lapaz 5-325 Mg) 1 tab Q4H PRN PO 10/19/16 13:30 (Lapaz 7.5-325 Mg) 1 tab Q4H PRN PO 10/19/16 13:30 10/21/16 08:43 (Morphine Inj) 4 mg Q4H PRN IV 10/19/16 13:30 (Narcan Inj) 0.4 mg UNSCH PRN IV 10/19/16 13:30 (Maryjane-Colace) 1 tab BID PO 10/19/16 21:00 10/21/16 08:21 (Milk Of Magnesia Liq) 30 ml Q12H PRN PO 10/19/16 13:30 (Senokot) 17.2 mg Q12H PRN PO 10/19/16 13:30 (Dulcolax Supp) 10 mg DAILY PRN RECTAL 10/19/16 13:30 Methylprednisolone Sodium Succinate 500 mg/Dextrose 100 ml @ 200 mls/hr BID IV 10/19/16 21:00 10/20/16 23:00 (Lovenox Inj) 30 mg Q24H SQ 10/19/16 16:00 10/20/16 17:07 (Versed Inj) 2 mg Q2HR PRN IV PUSH 10/20/16 16:30 10/21/16 09:07 Clindamycin Phosphate 600 mg/ Sodium Chloride 104 ml @ 208 mls/hr Q6H IV 10/20/16 20:00 10/21/16 08:20 A/P Problem List: (1) Multiple sclerosis exacerbation ICD Code: G35 - Multiple sclerosis (2) Left breast lump ICD Code: N63 - Unspecified lump in breast (3) Atypical chest pain ICD Code: R07.89 - Other chest pain Assessment and Plan 31-year-old female with history of multiple sclerosis, breast cancer s/p bilateral mastectomy presents with multiple complaints including left breast pain/swelling, chest pain, worsening generalized weakness, and falls. New onset seizure The patient was transferred to the intensive care unit after she had a generalized seizure which responded to Versed. She had a recurrence of the seizure 10/21. Neurology was made aware. - MRI is pending. - Neurology to start antiepileptic. - Neuro checks and seizure precautions. - Speech therapy evaluation. - Check CMP and CPK. - EEG requested. - IVFs. Multiple Sclerosis Exacerbation: patient with worsening weakness and recent falls. Follows with neurologist Dr. Nix as outpatient. Neurology consult appreciated. -continue IV Solumedrol 500mg bid. -follow up with neurology. MRIs ordered. -Monitor neuro checks -PT/OT consulted -supportive treatment with IVF, pain control and antiemetics prn Chest Pain: atypical. Possibly related to MS flare as above vs musculoskeletal. Pain reproducible on exam. CT-PA images reviewed, negative for PE, no acute findings. CXR unremarkable. Trops flat. EKGs without acute ischemia. -Monitor on telemetry -IV morphine prn. Add Toradol to treat costochondritis as needed. Left Breast Pain/Swelling: unclear etiology, rule out abscess vs recurrent mass. +edema/induration on exam. Patient known to Dr. Brandon. -Discussed extensively with radiologist Dr. Stacy, breast MRI not done in hospital and breast U/S not useful; patient needs to have breast MRI done as outpatient -Consulted plastic surgery for assistance. No indication for surgery at this time. The pt will need to follow up w/ Dr. Brandon as an outpt. IV clindamycin started. MRI chest pending. -Pain control. -ID consult pending. DVT Prophylaxis: Lovenox Discharge Planning MRIs pending, ID consult requested, neurology evaluating new onset seizure, and the pt's MS exacerbation needs to be better. The pt will be here for several more days. Regis Nolan DO Oct 21, 2016 10:23
[2016-10-21] MEDS: levETIRAcetam 500 MG TAB PO SCH ×2 (12:00→20:12)
[2016-10-21] MEDS ORDERED: GADODIAMIDE PF 287 MG/ML 20 ML VIAL (for RAD MRI) IV PUSH ONE (13:09)
--- NOTE | 2016-10-21 13:40 | RADRPT ---
EXAM DATE/TIME: 10/21/2016 11:59 [facility] COMPARISON: No previous studies available for comparison. INDICATIONS : Left breast swelling. Abcess. Lateral left breast. CONTRAST: 16 cc Omniscan (gadodiamide) IV MEDICAL HISTORY : Carcinoma, breast. Multiple sclerosis. Seizures. SURGICAL HISTORY : Mastectomy, bilateral. Hysterectomy. Tonsillectomy. Breast reconstruction surgery, bilateral. ENCOUNTER: Subsequent ACUITY: 3 day PAIN SCORE: 0/10 LOCATION: Left breast. TECHNIQUE: Multi-weighted, multi-axial MR images of the chest both before and after the administration of intrav enous contrast. FINDINGS: Bilateral breast implants are present and intact. There is no evidence of associated chest wall absce ss or other collection on either side. There is no evidence of axillary adenopathy. Signal is symmetr ic and benign in the chest wall bilaterally. CONCLUSION: Negative study Prashanth Lema MD on October 21, 2016 at 13:35 Board Certified Radiologist. This report was verified electronically.
--- NOTE | 2016-10-21 13:52 | RADRPT ---
EXAM DATE/TIME: 10/21/2016 11:59 [facility] COMPARISON: MRI BRAIN W & W/O CONTRAST, March 09, 2014, 10:41. INDICATIONS : Multiple sclerosis. CONTRAST: 16 cc Omniscan (gadodiamide) IV MEDICAL HISTORY : Carcinoma, breast. Seizures. Multiple sclerosis. SURGICAL HISTORY : Tonsillectomy. Mastectomy, bilateral. Hysterectomy. Breast reconstruction surgery, bilateral. ENCOUNTER: Subsequent ACUITY: 3 day PAIN SCORE: 0/10 LOCATION: head. TECHNIQUE: Multiplanar, multisequence MRI of the brain was performed both prior to and following the administrat ion of paramagnetic contrast. FINDINGS: There are periventricular abnormalities characteristic of MS not of which demonstrate restricted diff usion or enhancement. When compared to the prior study there are 3 new lesions in the periventricular white matter as well as at the patel-white junction in the posterior right frontal region. Posterior fossa structures are unremarkable. Following the administration of contrast no abnormal enhancement is identified. CONCLUSION: 1. Findings characteristic of multiple sclerosis with new plaques when compared with the prior study though none of these appear acute. Esteban Carbajal MD on October 21, 2016 at 13:43 Board Certified Radiologist. This report was verified electronically.
[2016-10-21] MEDS: ENOXAPARIN SODIUM 30 MG/0.3 ML SYRINGE SQ SCH (14:15)
--- NOTE | 2016-10-21 14:28 | RADRPT ---
EXAM DATE/TIME: 10/21/2016 11:59 [facility] COMPARISON: No previous studies available for comparison. INDICATIONS : Mulitple sclerosis. CONTRAST: 16 cc Omniscan (gadodiamide) IV MEDICAL HISTORY : Carcinoma, breast. Multiple sclerosis. Seizures. SURGICAL HISTORY : Mastectomy, bilateral. Hysterectomy. ENCOUNTER: Subsequent ACUITY: 1 week PAIN SCORE: 0/10 LOCATION: t-spine. TECHNIQUE: Multiplanar multisequence MRI of the thoracic spine was performed. FINDINGS: VERTEBRA: Normal vertebral body height. Homogeneous marrow signal. ALIGNMENT: Normal. CORD: Normal position and configuration. POST CONTRAST: No abnormal areas of contrast enhancement seen. T1-T2: Normal. T2-T3: The thecal sac has a normal diameter. No evidence of disc bulge or protrusion. T3-T4: The thecal sac has a normal diameter. No evidence of disc bulge or protrusion. T4-T5: The thecal sac has a normal diameter. No evidence of disc bulge or protrusion. T5-T6: The thecal sac has a normal diameter. No evidence of disc bulge or protrusion. T6-T7: The thecal sac has a normal diameter. No evidence of disc bulge or protrusion. T7-T8: The thecal sac has a normal diameter. No evidence of disc bulge or protrusion. T8-T9: The thecal sac has a normal diameter. No evidence of disc bulge or protrusion. T9-T10: The thecal sac has a normal diameter. No evidence of disc bulge or protrusion. T10-T11: The thecal sac has a normal diameter. No evidence of disc bulge or protrusion. T11-T12: The thecal sac has a normal diameter. No evidence of disc bulge or protrusion. T12-L1: The thecal sac has a normal diameter. No evidence of disc bulge or protrusion. CONCLUSION: MRI appearance of the thoracic spine within normal limits. Prashanth Staton MD on October 21, 2016 at 14:26 Board Certified Radiologist. This report was verified electronically.
--- NOTE | 2016-10-21 14:33 | PD.CONS ---
History of Present Illness Service Infectious disease Consult Requested By Dr Karl Nolan Reason for Consult Evaluate patient with left breast swelling, recommend antibiotics Primary Care Physician Rolly Rogers D.O. Diagnoses: History of Present Illness Patient seen and examined. Records reviewed. Patient is a 31-year-old female, with history of breast cancer on the left, status post bilateral mastectomy and placement initially of bilateral tissue discharge rn. This was done in 2014. In 2016 she underwent removal of the bilateral chest tissue discharge rn, and replacement with silicone implants. She did well after the procedure, up until about 2 months ago when she felt a hard lump on the lateral aspect of her left breast. She was being worked up, but has had problem getting an oncology appointment. She had seen her last 6 surgeon several times. She started noticing swelling around the lump and it had progressively increasing in size and has probably got worse over the last several weeks. She was experiencing some heaviness on her left breast, but not really that of a pain. She has not had any fever or chills or sweats. She has not had any respiratory complaint. The last time she saw her plastic surgeon was about a week ago and a breast MRI was trying to be arranged, but she has had difficulty with having it done. She since has percent did here at [facility] for further evaluation and treatment. She has had multiple imaging studies which really did not find any significant explanation for the swelling on her left breast. A plastic surgeon has evaluated the patient. Patient was started on him empiric antibiotics. She was transferred to the ICU, because she developed 2 episodes of no onset seizures. Neurology is currently evaluating the patient. She is currently on IV clindamycin. Infectious disease consultation has been requested to make recommendation about antibiotics. Review of Systems Constitutional: COMPLAINS OF: Fatigue, DENIES: Fever, Chills, Night Sweats Eyes: DENIES: Eye pain Ears, nose, mouth, throat: DENIES: Nasal discharge, Oral lesions, Throat pain, Hoarseness, Sinus Pain Respiratory: DENIES: Cough, Shortness of breath Cardiovascular: DENIES: Chest pain, Syncope Gastrointestinal: DENIES: Abdominal pain, Diarrhea, Nausea, Vomiting, Difficulty Swallowing Genitourinary: DENIES: Urinary frequency, Urgency Musculoskeletal: DENIES: Joint pain, Joint Swelling Integumentary: DENIES: Rash Neurologic: DENIES: Headache Psychiatric: DENIES: Confusion Past Family Social History Allergies: Coded Allergies: lorazepam (Unverified Allergy, Intermediate, Bradycardia, 10/15/16) Past Medical History Multiple sclerosis Breast cancer Past Surgical History Bilateral mastectomy and reconstruction Cervical scraping/laser Hysterectomy C-sections x3 Active Ordered Medications [place] Dulcolax Clindamycin Lovenox Keppra MOM Solu-Medrol Versed Morphine Zofran Maryjane-Colace Senokot Family History Family history positive for breast cancer, colon cancer, heart disease, and diabetes. Some family with heart disease in their 40s Social History No smoking Denies alcohol abuse Denies illicit drug Physical Exam Vital Signs Vital Signs Date Time Temp Pulse Resp B/P (MAP) Pulse Ox O2 Delivery O2 Flow Rate FiO2 10/21/16 14:00 69 10/21/16 12:00 63 10/21/16 10:08 14 10/21/16 10:00 61 10/21/16 09:13 100 Nasal Cannula 2.00 10/21/16 08:00 98.8 66 14 107/65 (79) 100 10/21/16 08:00 60 10/21/16 04:00 98.7 52 12 109/68 (82) 100 10/21/16 00:00 98.6 71 12 102/58 (73) 100 10/20/16 23:00 56 10/20/16 21:12 100 Nasal Cannula 2.00 10/20/16 20:00 98.3 57 14 96/62 (73) 98 10/20/16 16:00 100 Nasal Cannula 3.00 10/20/16 16:00 70 10/20/16 16:00 98.7 70 20 98/57 (71) 100 10/20/16 15:55 98 10/20/16 15:55 99 Non-Rebreather 15.00 10/20/16 15:45 140 120/98 (105) 100 10/20/16 15:40 142 120/98 (105) 100 Physical Exam GENERAL: Patient is a well-nourished, well-developed female, awake and alert , not in respiratory distress. SKIN: Warm and dry. No generalized rash, no ecchymoses and no evidence of embolic lesions. HEAD: Atraumatic. Normocephalic. No temporal wasting, or tenderness. EYES: [place]Neill conjunctiva. No petechia or hemorrhage. Pupils equal, round and reactive to light. Extraocular movements full and intact. No scleral icterus. No injection or drainage. EARS, NOSE AND THROAT: Nose without bleeding or purulent nasal discharge. No sinus tenderness. Mucous membranes pink and moist. No oral lesions noted. No exudate. No oral thrush. NECK: Trachea midline. Supple and not tender, no meningeal signs CARDIOVASCULAR: Regular rate and rhythm. No murmurs, rubs or gallops heard RESPIRATORY: Clear to auscultation. Breath sounds equal bilaterally. No rales , wheezing or rhonchi BREAST: Has well healed incisions both breast. L breast has swelling on top and laterally, no erythema noted, skin is not indurated, not particularly tender on palpation. ABDOMEN: Soft, non-tender, nondistended. Bowel sounds present and normoactive. No guarding. No rebound. No organomegaly. EXTREMITIES: No clubbing, cyanosis, or edema.No joint effusion, has good ROM. No calf tenderness. Well perfused and warm. NEUROLOGICAL: Awake and alert. Cranial nerves grossly intact. Motor grossly within normal limits. PSYCHIATRIC: Normal affect, calm and cooperative. LINE: No evidence of infection Result Diagram: 10/20/1672310/20/16723 Imaging RADIOLOGY STUDIES/FILMS REVIEWED Chest MRI 10/21/16 Signed Impressions: Service Date/Time: Friday, October 21, 2016 11:59 - CONCLUSION: Negative study Prashanth Lema MD Brain MRI 10/21/16 Signed Impressions: Service Date/Time: Friday, October 21, 2016 11:59 - CONCLUSION: 1. Findings characteristic of multiple sclerosis with new plaques when compared with the prior study though none of these appear acute. Esteban Carbajal MD Chest X-Ray 10/19/16823 Signed Impressions: Service Date/Time: Wednesday, October 19, 2016 08:36 - CONCLUSION: Normal examination. Larry Cosme MD CT Angiography 10/19/16823 Signed Impressions: Service Date/Time: Wednesday, October 19, 2016 10:21 - CONCLUSION: 1. No evidence of pulmonary embolus. Larry Cosme MD Breast Ultrasound 10/19/16 Signed Impressions: Service Date/Time: Wednesday, October 19, 2016 13:46 - CONCLUSION: Negative, please above discussion. Flavio Stacy MD FACR Assessment and Plan Assessment and Plan IMPRESSION Breast CA S/P ludwig mastectomy S/P removal ludwig chest tissue expanders and replacement with bilateral silicone implants July 2015 L breast swelling, slowly progressing over 2 months, etiology, clinically no evidence of infection, no cellulitis Multiple sclerosis New onset seizure RECOMMENDATION Neurology evaluating patient for newonset seizure I dont see any evidence of infection at this time that would require Abx therapy Need MRI breast which can only be done at outpatient I have stopped the IV Clindamycin Thank you for this consultation Discussed Condition With Explained recommendation and plan to patient and mother D/W Nehal Tate MD Oct 21, 2016 14:33
--- NOTE | 2016-10-21 15:10 | RADRPT ---
EXAM DATE/TIME: 10/21/2016 11:59 [facility] COMPARISON: No previous studies available for comparison. INDICATIONS : Multiple sclerosis. CONTRAST: 16 cc Omniscan (gadodiamide) IV MEDICAL HISTORY : Multiple sclerosis. Carcinoma, breast. Seizures. SURGICAL HISTORY : Mastectomy, bilateral. Tonsillectomy. Hysterectomy. ENCOUNTER: Subsequent ACUITY: 3 day PAIN SCORE: 0/10 LOCATION: neck TECHNIQUE: Multiplanar, multisequence MRI examination of the cervical spine was performed. FINDINGS: VERTEBRAE: Normal vertebral body height. Homogeneous marrow signal. ALIGNMENT: No evidence of subluxation. CORD: Small ill-defined focus of T2 prolongation in the central cord at the C3 level. POST FOSSA: The cerebellar tonsils are normal in position. POST-CONTRAST: No abnormal areas of enhancement are seen. C2-C3: The thecal sac has a normal configuration. There is no evidence of disc herniation or spinal canal stenosis. The neural foramina are patent bilaterally. C3-C4: Moderate-sized right paracentral disc herniation moderately effacing right lateral recess with slight asymmetric right-sided foraminal narrowing. Canal is adequate. C4-C5: Broad mild dorsal disc protrusion minimally indenting ventral thecal sac. C5-C6: Slight broad dorsal disc protrusion minimally indenting thecal sac. Slight trailing endplate and unco vertebral osteophytic spurring, worse on the left than the right. C6-C7: The thecal sac has a normal configuration. There is no evidence of disc herniation or spinal canal s tenosis. The neural foramina are patent bilaterally. C7-T1: The thecal sac has a normal configuration. There is no evidence of disc herniation or spinal canal s tenosis. The neural foramina are patent bilaterally. CONCLUSION: Small focus of altered signal in the cord at the C3 level could be a small focus of nonacute demyelin ization. Multilevel disc protrusions, most significantly a right paracentral protrusion at C3-4 which signific antly effaces the right lateral recess. Prashanth Lema MD on October 21, 2016 at 13:53 Board Certified Radiologist. This report was verified electronically.
[2016-10-21 16:14] LABS: ALKALINE PHOSPHATASE 55 U/L (45-117); ALT (GPT) 18 U/L (10-53); ANION GAP 7 MEQ/L (5-15); AST (GOT) 7 U/L (15-37); BICARBONATE 25.8 MEQ/L (21.0-32.0); BLOOD UREA NITROGEN 15 MG/DL (7-18); CHLORIDE 107 MEQ/L (98-107); GLOMERULAR FILTRATION RATE 91 ML/MIN (>89); SODIUM (NA) 140 MEQ/L (136-145); TOTAL BILIRUBIN ADULT 0.5 MG/DL (0.2-1.0)
[2016-10-21 16:19] LABS: CREATINE KINASE 89 U/L (26-192)
--- NOTE | 2016-10-21 21:35 | MG ---
cc: SUMI HOWE MD Lab No: [id number] Date: 10/21/16 Age: 31 Sex: F Race: DATE OF 1985 A 31-year-old female with history of vision changes, headache. Posterior rhythm demonstrates 8-10 Hz activity, 10-30 microvolts, low amplitude __ in the frontal channels followed by generalized slowing transition into drowsy state followed by stage I, stage II sleep with the appearance of spindle activity. Reasonably good driving with photic stimulation although slightly reduced towards higher frequencies. Appeared to go in and out of sleep, good EEG variability, reactivity. Single lead EKG showing sinus rhythm. INTERPRETATION Normal awake, mainly sleep EEG. Clinical correlation. Sumi Howe MD MG/EO /8:45 PM /9:19 PM
[2016-10-22] VITALS (10 sets, daily range): BP systolic 95–117; BP diastolic 54–76; PULSE 42–72; RESP 12–20; TEMP 97.3–98.8; O2SAT 95–100
[2016-10-22] MEDS: ACETAMINOPHEN/HYDROcodone 325 MG/7.5 MG TAB PO PRN ×4 (00:14→21:18)
[2016-10-22] MEDS: levETIRAcetam 500 MG TAB PO SCH ×2 (08:31→21:16)
[2016-10-22] MEDS: DOCUSATE SODIUM 50 MG/SENNA 8.6 MG TAB PO SCH ×2 (08:31→20:53)
[2016-10-22] MEDS: SODIUM CHLORIDE 0.9% FLUSH 10 ML FLUSH IV FLUSH SCH ×2 (09:00→20:53)
[2016-10-22] MEDS: methylPREDNISolone SO SUCC INJ 500 MG in DEXTROSE 5% IN WATER 100ML INJ 100 ML IV SCH ×4 (09:50→21:00)
[2016-10-22] MEDS ORDERED: ACETAMIN 325 MG/BUTALBITAL 50 MG/CAFFEINE 40 MG TAB PO PRN (10:00)
--- NOTE | 2016-10-22 12:51 | HHI.PR ---
Subjective Remarks Follow for MS exacerbation and seizure activity Patient's nurse Yunior is present during the interview. Patient was found sleeping soundly before woke her up. Patient had no seizure activity since yesterday. She was complaining of a headache this morning. She stated that this her typical headache. She usually takes ibuprofen with resolution. Patient was given Narco, morphine, and Fioricet she said that there is mild improvement. Patient also complaining about lower back pain. She continues to feel tingling in her right arm but has improved. She stated that she does have chronic lower back pain feels like it's worsened. Headaches in the frontal area. Denied nausea or vomiting. Objective Vitals Vital Signs Date Time Temp Pulse Resp B/P (MAP) Pulse Ox O2 Delivery O2 Flow Rate FiO2 10/22/16 12:00 42 10/22/16 12:00 98.3 42 12 111/72 (85) 99 10/22/16 11:01 100 21 10/22/16 10:00 47 10/22/16 08:00 72 10/22/16 08:00 98.8 72 18 117/72 (87) 96 10/22/16 07:00 96 Room Air 10/22/16 06:00 48 10/22/16 05:36 14 10/22/16 04:00 98.6 52 15 98/56 (70) 96 10/22/16 04:00 52 10/22/16 02:00 57 10/22/16 00:00 52 10/22/16 00:00 98.8 52 17 95/54 (68) 98 10/21/16 22:00 75 10/21/16 20:19 98 Nasal Cannula 2.00 10/21/16 20:00 55 10/21/16 20:00 98.7 60 15 93/65 (74) 99 10/21/16 19:00 95 Nasal Cannula 10/21/16 18:00 53 10/21/16 16:00 75 10/21/16 16:00 100 Room Air 10/21/16 16:00 98.7 75 25 107/70 (82) 98 10/21/16 14:00 69 I/O 10/21/16 10/21/16 10/21/16 10/22/16 10/22/16 10/22/16 06:59 14:59 22:59 06:59 14:59 22:59 Intake Total 240 ml 100 ml 3434 ml 840 ml Balance 240 ml 100 ml 3434 ml 840 ml Intake Oral 240 ml 580 ml 840 ml IV Total 100 ml 2854 ml # Voids 1 3 4 # Bowel Movements 0 0 Result Diagram: 10/20/16 0724 10/21/16 1500 Objective Remarks GENERAL: in NAD SKIN: Warm and dry. HEAD: Normocephalic. EYES: No scleral icterus. No injection or drainage. NECK: Supple, trachea midline. No JVD or lymphadenopathy. CARDIOVASCULAR: Regular rate and rhythm without murmurs, gallops, or rubs. Reproducible chest pain mid sternum with palpation. RESPIRATORY: Breath sounds equal bilaterally. No accessory muscle use. GASTROINTESTINAL: Abdomen soft, non-tender, nondistended. MUSCULOSKELETAL: + lower back paraspinal muscle spasm BACK: Nontender without obvious deformity. No CVA tenderness. NEURO: AAO X 3. Motor and sensation grossly intact. Medications and IVs Current Medications Sodium Chloride (NS Flush) 2 ml UNSCH PRN IVF FLUSH AFTER USING IV ACCESS; Start 10/19/16 at 08:30; Stop 10/19/16 at 13:31; Status DC Morphine Sulfate (Morphine Inj) 4 mg ONCE ONCE IV PUSH Last administered on 08:37; Start 10/19/16 at 08:30; Stop 10/19/16 at 08:31; Status DC Ondansetron HCl (Zofran Inj) 4 mg ONCE ONCE IV PUSH Last administered on 08:37; Start 10/19/16 at 08:30; Stop 10/19/16 at 08:31; Status DC Hydromorphone HCl (Dilaudid Pf Inj) 0.5 mg ONCE ONCE IV PUSH Last administered on 10/19/16 09:04; Start 10/19/16 at 09:00; Stop 10/19/16 at 09:01; Status DC Iohexol (Omnipaque 350 Inj) 75 ml STK-MED ONCE IVCONTRAST Last administered on 10/19/16 10:37; Start 10/19/16 at 10:37; Stop 10/19/16 at 10:38; Status DC Hydromorphone HCl (Dilaudid Pf Inj) 1 mg ONCE ONCE IV PUSH Last administered on 10/19/16 11:06; Start 10/19/16 at 11:00; Stop 10/19/16 at 11:01; Status DC Methylprednisolone Sodium Succinate (SoluMEDROL INJ) 125 mg ONCE ONCE IVP Last administered on 10/19/16 12:05; Start 10/19/16 at 12:00; Stop 10/19/16 at 12: 01; Status DC Hydromorphone HCl (Dilaudid Pf Inj) 0.5 mg ONCE ONCE IV PUSH ; Start 10/19/16 at 12:00; Stop 10/19/16 at 12:06; Status DC Sodium Chloride 1,000 ml @ 100 mls/hr Q10H IV Last administered on 10/21/16 15 :46; Start 10/19/16 at 14:00; Stop 10/22/16 at 01:59; Status DC Sodium Chloride (NS Flush) 2 ml UNSCH PRN IV FLUSH FLUSH AFTER USING IV ACCESS ; Start 10/19/16 at 13:30 Sodium Chloride (NS Flush) 2 ml BID IV FLUSH Last administered on 10/22/16 09: 00; Start 10/19/16 at 21:00 Ondansetron HCl (Zofran Inj) 4 mg Q6H PRN IVP NAUSEA OR VOMITING Last administered on 10/19/16 15:46; Start 10/19/16 at 13:30 Acetaminophen/ Hydrocodone Bitart ([place] 5-325 Mg) 1 tab Q4H PRN PO PAIN SCALE 3 TO 5 Last administered on 10/22/16 08:34; Start 10/19/16 at 13:30 Acetaminophen/ Hydrocodone Bitart ([place] 7.5-325 Mg) 1 tab Q4H PRN PO PAIN SCALE 6 TO 10 Last administered on 10/22/16 10:08; Start 10/19/16 at 13:30 Morphine Sulfate (Morphine Inj) 4 mg Q4H PRN IV BREAKTHROUGH PAIN Last administered on 10/22/16 09:28; Start 10/19/16 at 13:30 Naloxone HCl (Narcan Inj) 0.4 mg UNSCH PRN IV SEE LABEL COMMENTS; Start at 13:30 Senna/Docusate Sodium (Maryjane-Colace) 1 tab BID PO Last administered on 10/22/16 08:31; Start 10/19/16 at 21:00 Magnesium Hydroxide (Milk Of Magnesia Liq) 30 ml Q12H PRN PO MILD - MODERATE CONSTIPATION; Start 10/19/16 at 13:30 Sennosides (Senokot) 17.2 mg Q12H PRN PO MODERATE - SEVERE CONSTIPATION; Start 10/19/16 at 13:30 Bisacodyl (Dulcolax Supp) 10 mg DAILY PRN RECTAL SEVERE CONSITIPATION; Start at 13:30 Methylprednisolone Sodium Succinate 500 mg/Dextrose 100 ml @ 200 mls/hr BID IV Last administered on 10/22/16 09:50; Start 10/19/16 at 21:00 Methylprednisolone Sodium Succinate (SoluMEDROL INJ) 250 mg ONCE ONCE IV PUSH Last administered on 10/19/16 15:47; Start 10/19/16 at 13:45; Stop 10/19/16 at 13: 47; Status DC Enoxaparin Sodium (Lovenox Inj) 30 mg Q24H SQ Last administered on 10/21/16 14: 15; Start 10/19/16 at 16:00 Ketorolac Tromethamine (Toradol Inj) 30 mg ONCE ONCE IV PUSH Last administered on 10/20/16 12:10; Start 10/20/16 at 11:15; Stop 10/20/16 at 11:16; Status DC Lorazepam (Ativan Inj) 2 mg STK-MED ONCE .ROUTE Last administered on 10/20/16 15:53; Start 10/20/16 at 15:51; Stop 10/20/16 at 15:52; Status DC Midazolam HCl (Versed Inj) 10 mg STK-MED ONCE .ROUTE ; Start 10/20/16 at 15:57; Stop 10/20/16 at 15:58; Status DC Midazolam HCl (Versed Inj) 2 mg Q2HR PRN IV PUSH seizures Last administered on 10/21/16 20:22; Start 10/20/16 at 16:30 Lorazepam (Ativan Inj) 2 mg STAT ONCE IV ; Start 10/20/16 at 16:30; Stop at 16:31; Status DC Midazolam HCl (Versed Inj) 5 mg NOW ONCE IV Last administered on 10/20/16 16: 00; Start 10/20/16 at 16:00; Stop 10/20/16 at 17:10; Status DC Clindamycin Phosphate 600 mg/ Sodium Chloride 104 ml @ 208 mls/hr Q6H IV Last administered on 10/21/16 14:14; Start 10/20/16 at 20:00; Stop 10/21/16 at 14:17; Status DC Levetriacetam (Keppra) 500 mg Q12HR PO Last administered on 10/22/16 08:31; Start 10/21/16 at 12:00 Gadodiamide (Omniscan Pf Inj) 16 ml STK-MED ONCE IV PUSH Last administered on 13:09; Start 10/21/16 at 13:09; Stop 10/21/16 at 13:10; Status DC Acetaminophen/ Butalbital/ Caffeine (Fioricet 325-50-40) 1 tab Q6H PRN PO headache Last administered on 10/22/16 11:13; Start 10/22/16 at 10:00 A/P Problem List: (1) Multiple sclerosis exacerbation ICD Code: G35 - Multiple sclerosis (2) Left breast lump ICD Code: N63 - Unspecified lump in breast (3) Atypical chest pain ICD Code: R07.89 - Other chest pain Assessment and Plan 31-year-old female with history of multiple sclerosis, breast cancer s/p bilateral mastectomy presents with multiple complaints including left breast pain/swelling, chest pain, worsening generalized weakness, and falls. New onset seizure The patient was transferred to the intensive care unit after she had a generalized seizure which responded to Versed. She had a recurrence of the seizure 10/21. No seizure activity since yesterday. - MRI shows new plaques showing MS pattern. -Continue with Neuro checks and seizure precautions. - Speech therapy evaluation. - Check CMP and CPK. - EEG is negative for seizure. Shows a normal sleep pattern. - IVFs. -- Patient on Keppra doing well. Multiple Sclerosis Exacerbation: patient with worsening weakness and recent falls. Follows with neurologist Dr. Nix as outpatient. Neurology consult appreciated. -continue IV Solumedrol 500mg bid. -follow up with neurology. MRIs show some new plaques showing MS pattern. -Monitor neuro checks -PT/OT consulted -supportive treatment with IVF, pain control and antiemetics prn Chest Pain: atypical. Secondary to costochondritis. Possibly related to MS flare as above vs musculoskeletal. Pain reproducible on exam. CT-PA images reviewed, negative for PE, no acute findings. CXR unremarkable. Trops flat. EKGs without acute ischemia. -Monitor on telemetry -IV morphine prn. Add Toradol to treat costochondritis as needed. Left Breast Pain/Swelling: unclear etiology, rule out abscess vs recurrent mass. +edema/induration on exam. Patient known to Dr. Brandon. -Patient needs breast MRI which is only done as outpatient. She had MRI of the chest and breast ultrasound during her hospitalization which was negative. -Plastic surgeon consulted and stated that she may need an exploratory procedure. -Educated patient that she needs to get a breast MRI and this to be only done as outpatient. Headache, tension -This is patient's typical headache. She was given norco, Fioricet, and morphine with mild improvement. Patient is very comfortable in bed and does not show signs of any pain or distress. Will try low dose of ibuprofen but try to avoid too much anti-inflammatory since patient is on Solumedorol. DVT Prophylaxis: Janet Hale MD Oct 22, 2016 12:51
[2016-10-22] MEDS ORDERED: IBUPROFEN 400 MG TAB PO ONE (13:00)
[2016-10-22] MEDS ORDERED: PILL SPLITTER OTHER PRN (14:00)
[2016-10-22] MEDS: CYCLOBENZAPRINE HCL 10 MG TAB PO SCH ×2 (14:00→21:17)
[2016-10-22] MEDS: MIDAZOLAM HCL 2 MG/2 ML VIAL IV PUSH PRN (14:15)
--- NOTE | 2016-10-22 14:30 | EKG ---
Date Performed: 10/22/2016 Time Performed: 09:58:06 PTAGE: 31 years EKG: Sinus bradycardia. Lead(s) unsuitable for analysis: V2 Normal ECG except for rate Compared to prior tracing no significant change PREVIOUS TRACING : 10/19/2016 19.17 DOCTOR: Tae Jernigan Interpretating Date/Time 10/22/2016 14:29:20
--- NOTE | 2016-10-22 14:49 | PD.PLAS.PN ---
Subjective Remarks Patient stable, no immediate acute changes - neurologically and also on the left breast. The chest MRI reading of the breast again confirms the findings of previous studies that there is no fluid in the capsule surrounding the implant and also there is no suspicious area of either abscess or any breast cancer recurrence in the flap area. No lymph nodes either. Dr. Hayes's input appreciated - patient is off clindamycin. Discussed all findings with patient in detail Left breast seems stable now, soft edema only, no increase in size from last exam. No redness or warmth. Will follow along, no surgery necessary at this time. Vital Signs Date Time Temp Pulse Resp B/P (MAP) Pulse Ox O2 Delivery O2 Flow Rate FiO2 10/22/16 12:00 42 10/22/16 12:00 98.3 42 12 111/72 (85) 99 10/22/16 11:01 100 21 10/22/16 10:00 47 10/22/16 08:00 72 10/22/16 08:00 98.8 72 18 117/72 (87) 96 10/22/16 07:00 96 Room Air 10/22/16 06:00 48 10/22/16 05:36 14 10/22/16 04:00 98.6 52 15 98/56 (70) 96 10/22/16 04:00 52 10/22/16 02:00 57 10/22/16 00:00 52 10/22/16 00:00 98.8 52 17 95/54 (68) 98 10/21/16 22:00 75 10/21/16 20:19 98 Nasal Cannula 2.00 10/21/16 20:00 55 10/21/16 20:00 98.7 60 15 93/65 (74) 99 10/21/16 19:00 95 Nasal Cannula 10/21/16 18:00 53 10/21/16 16:00 75 10/21/16 16:00 100 Room Air 10/21/16 16:00 98.7 75 25 107/70 (82) 98 I/O 10/21/16 10/21/16 10/21/16 10/22/16 10/22/16 10/22/16 07:00 15:00 23:00 07:00 15:00 23:00 Intake Total 240 ml 100 ml 3434 ml 840 ml Balance 240 ml 100 ml 3434 ml 840 ml Intake Oral 240 ml 580 ml 840 ml IV Total 100 ml 2854 ml # Voids 1 3 4 # Bowel Movements 0 0 Laboratory Tests Test 10/21/16 15:00 Blood Urea Nitrogen 15 Creatinine 0.88 Random Glucose 119 Total Protein 6.7 Albumin 3.4 Calcium Level 7.6 Alkaline Phosphatase 55 Aspartate Amino Transf (AST/SGOT) 7 Alanine Aminotransferase (ALT/SGPT) 18 Total Bilirubin 0.5 Sodium Level 140 Potassium Level 4.0 Chloride Level 107 Carbon Dioxide Level 25.8 Anion Gap 7 Estimat Glomerular Filtration Rate 91 Total Creatine Kinase 89 Result Diagram: 10/20/16 0724 10/21/16 1500 Osito Germain MD Oct 22, 2016 14:49
[2016-10-22] MEDS: ENOXAPARIN SODIUM 30 MG/0.3 ML SYRINGE SQ SCH (16:20)
[2016-10-23] VITALS: BP 119/78; PULSE 61; RESP 13; TEMP 98; O2SAT 97
[2016-10-23] MEDS: ACETAMINOPHEN/HYDROcodone 325 MG/7.5 MG TAB PO PRN (03:42)
[2016-10-23 04:00] VITALS: BP 107/70; PULSE 45; PULSE 55; RESP 13; TEMP 98.8; O2SAT 97
[2016-10-23] MEDS: CYCLOBENZAPRINE HCL 10 MG TAB PO SCH ×2 (05:59→14:56)
[2016-10-23] MEDS: SODIUM CHLORIDE 0.9% FLUSH 10 ML FLUSH IV FLUSH SCH (09:00)
[2016-10-23] MEDS: DOCUSATE SODIUM 50 MG/SENNA 8.6 MG TAB PO SCH (09:08)
[2016-10-23] MEDS: levETIRAcetam 500 MG TAB PO SCH (09:08)
[2016-10-23] MEDS: methylPREDNISolone SO SUCC INJ 500 MG in DEXTROSE 5% IN WATER 100ML INJ 100 ML IV SCH ×2 (10:54)
[2016-10-23 12:00] VITALS: BP 126/81; PULSE 41; RESP 16; TEMP 98.6; O2SAT 100
--- NOTE | 2016-10-23 12:08 | HHI.PR ---
Subjective Remarks Follow-up for MS exacerbation Patient's mother is at the bedside during the interview. Patient stated that headache has resolved. She also stated that tingling in her hands have resolved. Patient very anxious to go home before hospitals on walk down. She stated that her back pain has also improved. She has no complaints and feels like she is doing well. No seizure activity. Objective Vitals Vital Signs Date Time Temp Pulse Resp B/P (MAP) Pulse Ox O2 Delivery O2 Flow Rate FiO2 10/23/16 04:42 12 10/23/16 04:00 55 10/23/16 04:00 98.8 45 13 107/70 (82) 97 10/23/16 00:00 61 10/23/16 00:00 98.0 61 13 119/78 (92) 97 10/22/16 20:00 44 10/22/16 20:00 98.3 47 20 110/67 (81) 95 10/22/16 19:00 95 Room Air 10/22/16 16:00 97.3 45 16 111/76 (88) 97 10/22/16 16:00 47 I/O 10/22/16 10/22/16 10/22/16 10/23/16 10/23/16 10/23/16 06:59 14:59 22:59 06:59 14:59 22:59 Intake Total 840 ml 1900 ml 480 ml Balance 840 ml 1900 ml 480 ml Intake Oral 840 ml 1200 ml 480 ml IV Total 700 ml # Voids 4 2 4 # Bowel Movements 0 0 0 Result Diagram: 10/20/16 0724 10/21/16 1500 Objective Remarks GENERAL: in NAD CARDIOVASCULAR: Regular rate and rhythm without murmurs, gallops, or rubs. Reproducible chest pain mid sternum with palpation. RESPIRATORY: Breath sounds equal bilaterally. No accessory muscle use. GASTROINTESTINAL: Abdomen soft, non-tender, nondistended. BACK: Nontender without obvious deformity. No CVA tenderness. NEURO: AAO X 3. Motor and sensation grossly intact. Medications and IVs Current Medications Sodium Chloride (NS Flush) 2 ml UNSCH PRN IVF FLUSH AFTER USING IV ACCESS; Start 10/19/16 at 08:30; Stop 10/19/16 at 13:31; Status DC Morphine Sulfate (Morphine Inj) 4 mg ONCE ONCE IV PUSH Last administered on 08:37; Start 10/19/16 at 08:30; Stop 10/19/16 at 08:31; Status DC Ondansetron HCl (Zofran Inj) 4 mg ONCE ONCE IV PUSH Last administered on 08:37; Start 10/19/16 at 08:30; Stop 10/19/16 at 08:31; Status DC Hydromorphone HCl (Dilaudid Pf Inj) 0.5 mg ONCE ONCE IV PUSH Last administered on 10/19/16 09:04; Start 10/19/16 at 09:00; Stop 10/19/16 at 09:01; Status DC Iohexol (Omnipaque 350 Inj) 75 ml STK-MED ONCE IVCONTRAST Last administered on 10/19/16 10:37; Start 10/19/16 at 10:37; Stop 10/19/16 at 10:38; Status DC Hydromorphone HCl (Dilaudid Pf Inj) 1 mg ONCE ONCE IV PUSH Last administered on 10/19/16 11:06; Start 10/19/16 at 11:00; Stop 10/19/16 at 11:01; Status DC Methylprednisolone Sodium Succinate (SoluMEDROL INJ) 125 mg ONCE ONCE IVP Last administered on 10/19/16 12:05; Start 10/19/16 at 12:00; Stop 10/19/16 at 12: 01; Status DC Hydromorphone HCl (Dilaudid Pf Inj) 0.5 mg ONCE ONCE IV PUSH ; Start 10/19/16 at 12:00; Stop 10/19/16 at 12:06; Status DC Sodium Chloride 1,000 ml @ 100 mls/hr Q10H IV Last administered on 10/21/16 15 :46; Start 10/19/16 at 14:00; Stop 10/22/16 at 01:59; Status DC Sodium Chloride (NS Flush) 2 ml UNSCH PRN IV FLUSH FLUSH AFTER USING IV ACCESS ; Start 10/19/16 at 13:30 Sodium Chloride (NS Flush) 2 ml BID IV FLUSH Last administered on 10/22/16 20: 53; Start 10/19/16 at 21:00 Ondansetron HCl (Zofran Inj) 4 mg Q6H PRN IVP NAUSEA OR VOMITING Last administered on 10/19/16 15:46; Start 10/19/16 at 13:30 Acetaminophen/ Hydrocodone Bitart ([place] 5-325 Mg) 1 tab Q4H PRN PO PAIN SCALE 3 TO 5 Last administered on 10/22/16 08:34; Start 10/19/16 at 13:30 Acetaminophen/ Hydrocodone Bitart ([place] 7.5-325 Mg) 1 tab Q4H PRN PO PAIN SCALE 6 TO 10 Last administered on 10/23/16 03:42; Start 10/19/16 at 13:30 Morphine Sulfate (Morphine Inj) 4 mg Q4H PRN IV BREAKTHROUGH PAIN Last administered on 10/22/16 09:28; Start 10/19/16 at 13:30 Naloxone HCl (Narcan Inj) 0.4 mg UNSCH PRN IV SEE LABEL COMMENTS; Start at 13:30 Senna/Docusate Sodium (Maryjane-Colace) 1 tab BID PO Last administered on 10/23/16 09:08; Start 10/19/16 at 21:00 Magnesium Hydroxide (Milk Of Magnesia Liq) 30 ml Q12H PRN PO MILD - MODERATE CONSTIPATION; Start 10/19/16 at 13:30 Sennosides (Senokot) 17.2 mg Q12H PRN PO MODERATE - SEVERE CONSTIPATION; Start 10/19/16 at 13:30 Bisacodyl (Dulcolax Supp) 10 mg DAILY PRN RECTAL SEVERE CONSITIPATION; Start at 13:30 Methylprednisolone Sodium Succinate 500 mg/Dextrose 100 ml @ 200 mls/hr BID IV Last administered on 10/23/16 10:54; Start 10/19/16 at 21:00 Methylprednisolone Sodium Succinate (SoluMEDROL INJ) 250 mg ONCE ONCE IV PUSH Last administered on 10/19/16 15:47; Start 10/19/16 at 13:45; Stop 10/19/16 at 13: 47; Status DC Enoxaparin Sodium (Lovenox Inj) 30 mg Q24H SQ Last administered on 10/22/16 16: 20; Start 10/19/16 at 16:00 Ketorolac Tromethamine (Toradol Inj) 30 mg ONCE ONCE IV PUSH Last administered on 10/20/16 12:10; Start 10/20/16 at 11:15; Stop 10/20/16 at 11:16; Status DC Lorazepam (Ativan Inj) 2 mg STK-MED ONCE .ROUTE Last administered on 10/20/16 15:53; Start 10/20/16 at 15:51; Stop 10/20/16 at 15:52; Status DC Midazolam HCl (Versed Inj) 10 mg STK-MED ONCE .ROUTE ; Start 10/20/16 at 15:57; Stop 10/20/16 at 15:58; Status DC Midazolam HCl (Versed Inj) 2 mg Q2HR PRN IV PUSH seizures Last administered on 10/22/16 14:15; Start 10/20/16 at 16:30 Lorazepam (Ativan Inj) 2 mg STAT ONCE IV ; Start 10/20/16 at 16:30; Stop at 16:31; Status DC Midazolam HCl (Versed Inj) 5 mg NOW ONCE IV Last administered on 10/20/16 16: 00; Start 10/20/16 at 16:00; Stop 10/20/16 at 17:10; Status DC Clindamycin Phosphate 600 mg/ Sodium Chloride 104 ml @ 208 mls/hr Q6H IV Last administered on 10/21/16 14:14; Start 10/20/16 at 20:00; Stop 10/21/16 at 14:17; Status DC Levetriacetam (Keppra) 500 mg Q12HR PO Last administered on 10/23/16 09:08; Start 10/21/16 at 12:00 Gadodiamide (Omniscan Pf Inj) 16 ml STK-MED ONCE IV PUSH Last administered on 13:09; Start 10/21/16 at 13:09; Stop 10/21/16 at 13:10; Status DC Acetaminophen/ Butalbital/ Caffeine (Fioricet 325-50-40) 1 tab Q6H PRN PO headache Last administered on 10/22/16 11:13; Start 10/22/16 at 10:00 Ibuprofen (Motrin) 400 mg ONCE ONCE PO ; Start 10/22/16 at 13:00; Stop 10/22/16 at 13:58; Status DC Cyclobenzaprine HCl (Flexeril) 5 mg Q8HR PO Last administered on 10/23/16t 05:59 ; Start 10/22/16 at 14:00 Miscellaneous (Pill Splitter) 1 ea UNSCH PRN OTHER SEE LABEL COMMENTS; Start at 14:00 A/P Problem List: (1) Multiple sclerosis exacerbation ICD Code: G35 - Multiple sclerosis (2) Left breast lump ICD Code: N63 - Unspecified lump in breast (3) Atypical chest pain ICD Code: R07.89 - Other chest pain Assessment and Plan 31-year-old female with history of multiple sclerosis, breast cancer s/p bilateral mastectomy presents with multiple complaints including left breast pain/swelling, chest pain, worsening generalized weakness, and falls. New onset seizure The patient was transferred to the intensive care unit after she had a generalized seizure which responded to Versed. She had a recurrence of the seizure 10/21. No seizure activity since yesterday. - MRI shows new plaques showing MS pattern. -Continue with Neuro checks and seizure precautions. - Speech therapy evaluation. - Check CMP and CPK. - EEG is negative for seizure. Shows a normal sleep pattern. - IVFs. -- Patient on Keppra doing well. Multiple Sclerosis Exacerbation: patient with worsening weakness and recent falls. Follows with neurologist Dr. Nix as outpatient. Neurology consult appreciated. -continue IV Solumedrol 500mg bid. -follow up with neurology. MRIs show some new plaques showing MS pattern. -Monitor neuro checks -PT/OT consulted -supportive treatment with IVF, pain control and antiemetics prn -Improving will d/w neurologist in regards to plan. Chest Pain: atypical. Secondary to costochondritis. Possibly related to MS flare as above vs musculoskeletal. Pain reproducible on exam. CT-PA images reviewed, negative for PE, no acute findings. CXR unremarkable. Trops flat. EKGs without acute ischemia. -Monitor on telemetry -IV morphine prn. Add Toradol to treat costochondritis as needed. Left Breast Pain/Swelling: unclear etiology, rule out abscess vs recurrent mass. +edema/induration on exam. Patient known to Dr. Brandon. -Patient needs breast MRI which is only done as outpatient. She had MRI of the chest and breast ultrasound during her hospitalization which was negative. -Plastic surgeon no indication for surgery at the moment. This can be done as outpatient. Patient stated that she understood. Headache, tension -Resolved. DVT Prophylaxis: Janet Hale MD Oct 23, 2016 12:08
[2016-10-23] MEDS: ENOXAPARIN SODIUM 30 MG/0.3 ML SYRINGE SQ SCH (14:56)
[2016-10-23] MEDS ORDERED: BEDSIDE COMMODE1 MI1 (15:08)
[2016-10-23] MEDS ORDERED: CYCL1TAB29 PO (15:14)
[2016-10-23] MEDS ORDERED: HYDR-3516 PO (15:14)
[2016-10-23] MEDS ORDERED: LEVE500 PO (15:14)
--- NOTE | 2016-10-23 15:16 | HHI.DCPOC ---
Discharge Care Plan Diagnosis: (1) Multiple sclerosis exacerbation (2) Seizure Goals to Promote Your Health * To prevent worsening of your condition and complications * To maintain your health at the optimal level Directions to Meet Your Goals Take your medications as prescribed Follow your dietary instruction Follow activity as directed Keep your appointments as scheduled Take your immunizations and boosters as scheduled If your symptoms worsen call your PCP, if no PCP go to Urgent Care Center or Emergency Room Smoking is Dangerous to Your Health. Avoid second hand smoke Call the 24-hour hour crisis hotline for domestic abuse at Janet Jimenez MD Oct 23, 2016 15:16
--- NOTE | 2016-10-23 15:25 | HHI.FF ---
Face to Face Verification Diagnosis: (1) Multiple sclerosis exacerbation (2) Seizure Physical Therapy Order: Evaluate and Treat, Improve ambulation, Strength and gait training Occupational Therapy Order: Evaluate and Treat, Improve ADL, Gross motor coordination, Fine motor coordination Home Health Nursing Order: Medical education Signs/symptoms of disease process Medication education-adverse effect Nursing assessment with vital signs I have seen patient Elyssa Estrada on 10/23/16. My clinical findings support the need for the requested home health care services because: Ltd mobility - disease progression Deconditioned w/ increased weakness High risk of falls I certify that my clinical findings support that this patient is homebound because: Unsteady gait/balance Janet Jimenez MD Oct 23, 2016 15:25
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
--- NOTE | 2016-10-23 15:52 | HHI.FF ---
Face to Face Verification Diagnosis: (1) Seizure (2) Multiple sclerosis exacerbation Home Health Nursing Order: Medical education Signs/symptoms of disease process Medication education-adverse effect I have seen patient Elyssa Estrada on 10/23/16. My clinical findings support the need for the requested home health care services because: Ltd mobility - disease progression I certify that my clinical findings support that this patient is homebound because: Unsteady gait/balance Janet Jimenez MD Oct 23, 2016 15:52
[2016-10-23 16:00] VITALS: BP 100/63; PULSE 52; RESP 16; TEMP 98.4; O2SAT 100
== END 2016-10-23 18:13 | disposition home health service (06) | DRG 60 ==
LOC: NEPE 07:59 → NEDA 12:34 → NEPGCP 13:58 → OBSVTOIN 15:21 → N06B 10-20 00:59 → N03B 10-20 15:58 → N05B 10-23 06:45
PROVIDERS: ADMIT Family Medicine; ATTEND Family Medicine
DX: G35 Multiple sclerosis (principal); R56.9 Unspecified convulsions; G43.909 Migraine, unspecified, not intractable, without status migrainosus; N64.4 Mastodynia; M94.0 Chondrocostal junction syndrome [Tietze]; Z85.3 Personal history of malignant neoplasm of breast; Z90.13 Acquired absence of bilateral breasts and nipples
CPT/HCPCS: 70553; 71010; 71275; 71552; 72156; 72157; 76642; 80048; 80053; 82550; 82552; 84484; 85007; 85025; 85027; 85610; 85730; 93005; 95819; 96374; 96375; 96376; A9579; J1170; J1650; J1885; J2060; J2250; J2270; J2405; J2930; J7030; Q9967

== ENCOUNTER 2017-02-05 02:43 | Inpatient (IN) | payer MEDICAID ==
[2017-02-05] VITALS (8 sets, daily range): BP systolic 100–133; BP diastolic 60–88; PULSE 52–85; RESP 16–18; TEMP 96.6–98.7; O2SAT 98–100
[~2017-02-05] VITALS: Ht 177.8 cm; Wt 80.4 kg
[~2017-02-05 02:43] MED LIST changes: +BEDSIDE COMMODE1 MI1; +CYCL10TA PO; +HYDR-3516 PO; +LEVE500 PO; -METHYLPREDNISOLONE; -METR500T10 PO; -PERC5TAB12 PO
[2017-02-05] MEDS ORDERED: KEPP750T PO (02:53)
[2017-02-05] MEDS ORDERED: INTE1KIT2 IM (02:53)
[2017-02-05] MEDS ORDERED: SODIUM CHLOR 0.9% 1000 ML INJ 1,000 ML IV ONE (02:55)
[2017-02-05] MEDS ORDERED: MORPHINE SULFATE 2 MG/ML INJ IV PUSH ONE ×2 (03:00→05:00)
[2017-02-05] MEDS ORDERED: SODIUM CHLORIDE 0.9% FLUSH 10 ML FLUSH IVF PRN (03:00)
--- NOTE | 2017-02-05 03:23 | PD ---
HPI Chief Complaint: General Weakness Time Seen by Provider: 02:55 Travel History International Travel<30 days: No Contact w/Intl Traveler<30days: No Traveled to known affect area: No History of Present Illness HPI 31-year-old female in no acute distress no respiratory distress presents to the emergency department by EMS transport for complaint of total body pain and generalized weakness with tremor. Patient states she has a history of multiple sclerosis and seizure. Patient states she's been taking her medication as prescribed. Patient states her generalized weakness has been worsening and she' s had frequent falls over the past week. Patient is followed by Dr. Nix as her neurologist. Patient denies any head injury or loss of consciousness. No report of neck pain. Patient states that due to her exacerbation she is noticing progressively worsening weakness of her lower extremities. According to prescription clerk lenses report she was not able use her walker to ambulate to her car and therefore was brought to the emergency room via stretcher. Patient's had no recent fever or chills. No report of urinary or bowel incontinence. Patient has been referred to [facility] according to the patient by her neurologist as she has not improved on her current regimen of therapy. She is currently prescribed Keppra and Avonex. Patient rates her overall pain 10 over 10 in intensity. Most recent [place] admission was October 2016 and she did require Solu-Medrol pulse dosing for an exacerbation of her MS. [facility] Past Medical History Narrative Medical Multiple sclerosis breast cancer with mastectomy 2014 seizure migraines hysterectomy mastectomy no tobacco use use; nursing notes reviewed Asthma: No Autoimmune Disease: Yes (MS) Blood Disorders: No Anxiety: No Depression: No Heart Rhythm Problems: No Cancer: Yes (LEFT BREAST CA. MASTECTOMY 2014, cervical) Cardiovascular Problems: No High Cholesterol: No Chemotherapy: No Chest Pain: Yes Congestive Heart Failure: No COPD: No Cerebrovascular Accident: No Diabetes: No Diminished Hearing: No Endocrine: No Gastrointestinal Disorders: Yes Glaucoma: No Genitourinary: No Headaches: Yes Hepatitis: No Hiatal Hernia: No Hypertension: No Immune Disorder: Yes (MS) Implanted Vascular Access Dvce: No Kidney Stones: No Musculoskeletal: Yes (MS- SOMETIMES USES A CANE/walker) Neurologic: Yes (HX OF MS, RECENT EVENT 6-9) Psychiatric: No Reproductive: Yes (TOTAL HYSTERECTOMY 2013, mastectomy and reconstruction) Respiratory: Yes (bronchitis) Immunizations Current: Yes Migraines: Yes Radiation Therapy: No Renal Failure: No Seizures: Yes Sleep Apnea: No Thyroid Disease: No ?: Not LMP: N/A Menopausal: No : 3 Para: 3 Ovarian Cysts: Yes Past Surgical History Abdominal Surgery: Yes (OVARIAN TUMOR/CYSTS REMOVED - ) AICD: No Body Medical Devices: breast implants Cardiac Surgery: No Section: Yes (X3) Endocrine Surgery: No Genitourinary Surgery: No Gynecologic Surgery: Yes (HYSTER=03/20/2013, CERVICAL SCRAPING/ LASER, CRYO LAPAROSCOPY ) Hysterectomy: Yes Joint Replacement: No Neurologic Surgery: No Pacemaker: No Thoracic Surgery: Yes (BILAT MASTECTOMY 11/2014, LUMPECTOMY) Tonsillectomy: Yes Other Surgery: Yes (bilateral mastectomy, reconstruction, cervix/ovary, tonsilect) Social History Alcohol Use: No Tobacco Use: No Substance Use: No Allergies-Medications (Allergen,Severity, Reaction): Coded Allergies: lorazepam (Unverified Allergy, Intermediate, Bradycardia, 02/05/17) Reported Meds & Prescriptions Reported Meds & Active Scripts Active Flexeril (Cyclobenzaprine HCl) 10 Mg Tab 5 Mg PO Q8HR Bedside Commode (Device) 1 Mis Mis Ea .ROUTE DIRECTED Reported Avonex Inj Kit (Interferon Beta 1a) 30 Mcg (1 Ml) Kit 30 Mcg IM Q7D Keppra (Levetiracetam) 750 Mg Tab 750 Mg PO BID Review of Systems Except as stated in HPI: all other systems reviewed are Neg Physical Exam Narrative GENERAL: SKIN: Warm and dry. HEAD: Atraumatic. Normocephalic. EYES: Pupils equal and round. No scleral icterus. No injection or drainage. ENT: No nasal bleeding or discharge. Mucous membranes pink and moist. NECK: Trachea midline. No JVD. CARDIOVASCULAR: Regular rate and rhythm. RESPIRATORY: No accessory muscle use. Clear to auscultation. Breath sounds equal bilaterally. GASTROINTESTINAL: Abdomen soft, non-tender, nondistended. Hepatic and splenic margins not palpable. MUSCULOSKELETAL: Extremities without clubbing, cyanosis, or edema. No obvious deformities. NEUROLOGICAL: Awake and alert. No obvious cranial nerve deficits. Motor grossly within normal limits. Five out of 5 muscle strength in the arms and bilateral lower extremity weakness left greater than right. Tremor bilateral upper extremities. Normal speech. PSYCHIATRIC: Appropriate mood and affect; insight and judgment normal. Data Data Last Documented VS Vital Signs Date Time Temp Pulse Resp B/P (MAP) Pulse Ox O2 Delivery O2 Flow Rate FiO2 02/05/17 02:47 98.3 77 16 133/88 (103) 100 Orders Orders Electrocardiogram (02/05/17 02:55) Basic Metabolic Panel (Bmp) (02/05/17 02:55) Complete Blood Count With Diff (02/05/17 02:55) Magnesium (Mg) (02/05/17 02:55) Troponin I (02/05/17 02:55) Act Partial Throm Time (Ptt) (02/05/17 02:55) Prothrombin Time / Inr (Pt) (02/05/17 02:55) Urinalysis - C+S If Indicated (02/05/17 02:55) Chest, Single Ap (02/05/17 02:55) Ct Brain W/O Iv Contrast(Rout) (02/05/17 02:55) Ecg Monitoring (02/05/17 02:55) Iv Access Insert/Monitor (02/05/17 02:55) Oximetry (02/05/17 02:55) Sodium Chloride 0.9% Flush (Ns Flush) (02/05/17 03:00) Sodium Chlor 0.9% 1000 Ml Inj (Ns 1000 M (02/05/17 02:55) Morphine Inj (Morphine Inj) (02/05/17 03:00) Methylprednisolone So Succ Inj (Solumedr (02/05/17 05:00) Labs Laboratory Tests Test 02/05/17 03:20 02/05/17 03:50 White Blood Count 6.5 TH/MM3 Red Blood Count 3.91 MIL/MM3 Hemoglobin 11.7 GM/DL Hematocrit 34.6 % Mean Corpuscular Volume 88.6 FL Mean Corpuscular Hemoglobin 30.0 PG Mean Corpuscular Hemoglobin Concent 33.8 % Red Cell Distribution Width 12.5 % Platelet Count 141 TH/MM3 Mean Platelet Volume 9.0 FL Neutrophils (%) (Auto) 66.9 % Lymphocytes (%) (Auto) 25.0 % Monocytes (%) (Auto) 5.1 % Eosinophils (%) (Auto) 2.5 % Basophils (%) (Auto) 0.5 % Neutrophils # (Auto) 4.3 TH/MM3 Lymphocytes # (Auto) 1.6 TH/MM3 Monocytes # (Auto) 0.3 TH/MM3 Eosinophils # (Auto) 0.2 TH/MM3 Basophils # (Auto) 0.0 TH/MM3 CBC Comment DIFF FINAL Differential Comment Prothrombin Time 10.9 SEC Prothromb Time International Ratio 1.1 RATIO Activated Partial Thromboplast Time 25.4 SEC Blood Urea Nitrogen 10 MG/DL Creatinine 0.87 MG/DL Random Glucose 87 MG/DL Calcium Level 8.3 MG/DL Magnesium Level 1.8 MG/DL Sodium Level 140 MEQ/L Potassium Level 4.3 MEQ/L Chloride Level 107 MEQ/L Carbon Dioxide Level 27.7 MEQ/L Anion Gap 5 MEQ/L Estimat Glomerular Filtration Rate 93 ML/MIN Troponin I LESS THAN 0.02 NG/ML Urine Color LIGHT-YELLOW Urine Turbidity CLEAR Urine pH 7.0 Urine Specific [place] 1.004 Urine Protein NEG mg/dL Urine Glucose (UA) NEG mg/dL Urine Ketones NEG mg/dL Urine Occult Blood NEG Urine Nitrite NEG Urine Bilirubin NEG Urine Urobilinogen LESS THAN 2.0 MG/DL Urine Leukocyte Esterase NEG Urine WBC LESS THAN 1 /hpf Urine Squamous Epithelial Cells <1 /hpf Urine Bacteria OCC /hpf Microscopic Urinalysis Comment CULT NOT INDICATED MDM Medical Decision Making Medical Screen Exam Complete: Yes Emergency Medical Condition: Yes Medical Record Reviewed: Yes Interpretation(s) Last Impressions Head CT 02/05/17254 Signed Impressions: Service Date/Time: January 03:56 - CONCLUSION: Normal examination. Prashanth Munoz MD Chest X-Ray 02/05/17254 Signed Impressions: Service Date/Time: January 03:37 - CONCLUSION: No acute disease. Prashanth Munoz MD EKG normal sinus rhythm rate [address] elevation injury pattern or ectopy noted Vital Signs Date Time Temp Pulse Resp B/P (MAP) Pulse Ox O2 Delivery O2 Flow Rate FiO2 02/05/17 02:47 98.3 77 16 133/88 (103) 100 CBC & BMP Diagram 02/05/17 03:20 Calcium Level 8.3 L, Magnesium Level 1.8 Differential Diagnosis Generalized weakness, exacerbation MS, compression fracture, cauda equina, Narrative Course Patient placed on senior director IV access obtained specimens collected and sent for resulting CT brain noncontrast ordered Physician Communication Physician Communication call placed to [facility] Diagnosis Primary Impression: Exacerbation of multiple sclerosis Admitting Information Admitting Physician Requests: Admit Tracee Romero MD Feb 05, 2017 03:23
[2017-02-05 03:33] LABS: AUTOMATED NEUTROPHIL # 4.3 TH/MM3 (1.8-7.7); BASOPHIL % 0.5 % (0.0-2.0); EOSINOPHIL # 0.2 TH/MM3 (0-0.4); EOSINOPHIL % 2.5 % (0.0-4.0); HEMATOCRIT 34.6 % (35.0-46.0); HEMO FLAGS DIFF FINAL; LYMPHOCYTE # 1.6 TH/MM3 (1.0-4.8); MEAN CELL VOLUME 88.6 FL (80.0-100.0); MEAN CORPUSCULAR HGB CONC 33.8 % (32.0-36.0); MONO % 5.1 % (0.0-8.0); NEUT % 66.9 % (16.0-70.0); PLATELET COUNT 141 TH/MM3 (150-450); RED BLOOD COUNT 3.91 MIL/MM3 (4.00-5.30); RED CELL DISTRIBUTION WIDTH 12.5 % (11.6-17.2); WHITE BLOOD COUNT 6.5 TH/MM3 (4.0-11.0)
[2017-02-05 03:44] LABS: APTT (PATIENT) 25.4 SEC (24.3-30.1); INTERNATIONAL NORMALIZED RATIO 1.1 RATIO; PROTHROMBIN TIME - PATIENT 10.9 SEC (9.8-11.6)
--- NOTE | 2017-02-05 03:45 | RADRPT ---
EXAM DATE/TIME: 02/05/2017 03:37 [facility] COMPARISON: CHEST SINGLE AP, October 19, 2016, 8:36. INDICATIONS : Chest pressure, difficulty breathing for 1 week MEDICAL HISTORY : Carcinoma, breast. SURGICAL HISTORY : Hysterectomy. Mastectomy, bilateral. ENCOUNTER: Initial ACUITY: 1 week PAIN SCORE: 0/10 LOCATION: Bilateral chest FINDINGS: A single view of the chest demonstrates the lungs to be symmetrically aerated without evidence of mas s, infiltrate or effusion. The cardiomediastinal contours are unremarkable. Osseous structures are intact. CONCLUSION: No acute disease. Prashanth Munoz MD on February 05, 2017 at 3:44 Board Certified Radiologist. This report was verified electronically.
[2017-02-05 03:58] LABS: BACTERIA, URINE OCC /hpf; BLOOD, URINE NEG (NEG); COMMENT (UR) CULT NOT INDICATED; CULTURE IF INDICATED CULT NOT INDICATED; GLUCOSE,URINE NEG (NEG); KETONE, URINE NEG (NEG); NITRITE,URINE NEG (NEG); SQUAMOUS EPITHELIAL CELL URINE <1 /hpf (0-5); URINE COLOR LIGHT-YELLOW (YELLW/STRAW)
[2017-02-05 04:11] LABS: ANION GAP 5 MEQ/L (5-15); BICARBONATE 27.7 MEQ/L (21.0-32.0); BLOOD UREA NITROGEN 10 MG/DL (7-18); CHLORIDE 107 MEQ/L (98-107); GLOMERULAR FILTRATION RATE 93 ML/MIN (>89); MAGNESIUM 1.8 MG/DL (1.5-2.5); POTASSIUM 4.3 MEQ/L (3.5-5.1); SODIUM (NA) 140 MEQ/L (136-145)
--- NOTE | 2017-02-05 04:30 | RADRPT ---
EXAM DATE/TIME: 02/05/2017 03:56 [facility] COMPARISON: CT BRAIN W/O CONTRAST, August 09, 2016, 0:40. INDICATIONS : Dizziness, unable to move left leg. Pain all over. RADIATION DOSE: 56.35 CTDIvol (mGy) MEDICAL HISTORY : Multple sclerosis. Seizures. Carcinoma, breast. SURGICAL HISTORY : Hysterectomy. Mastectomy, bilateral. ENCOUNTER: Initial ACUITY: 1 day PAIN SCALE: 10/10 LOCATION: cranial TECHNIQUE: Multiple contiguous axial images were obtained of the head. Using automated exposure control and adj ustment of the mA and/or kV according to patient size, radiation dose was kept as low as reasonably a chievable to obtain optimal diagnostic quality images. DICOM format image data is available electro nically for review and comparison. FINDINGS: CEREBRUM: The ventricles are normal for age. No evidence of midline shift, mass lesion, hemorrhage or acute in farction. No extra-axial fluid collections are seen. POSTERIOR FOSSA: The cerebellum and brainstem are intact. The 4th ventricle is midline. The cerebellopontine angle i s unremarkable. EXTRACRANIAL: The visualized portion of the orbits is intact. SKULL: The calvaria is intact. No evidence of skull fracture. CONCLUSION: Normal examination. Prashanth Munoz MD on February 05, 2017 at 4:28 Board Certified Radiologist. This report was verified electronically.
[2017-02-05] MEDS ORDERED: methylPREDNISolone SO SUCC INJ 500 MG in DEXTROSE 5% IN WATER 100ML INJ 100 ML IV ONE ×2 (05:00)
[2017-02-05] MEDS ORDERED: NALOXONE HCL 0.4 MG/ML AMP IV PUSH PRN (05:30)
[2017-02-05] MEDS ORDERED: LACTULOSE SYRUP 20 GM/30 ML CUP PO PRN (05:30)
[2017-02-05] MEDS ORDERED: SENNOSIDES 8.6 MG TAB PO PRN (05:30)
[2017-02-05] MEDS ORDERED: ONDANSETRON HCL 4 MG/2 ML VIAL IVP PRN (05:30)
[2017-02-05] MEDS ORDERED: BISACODYL 10 MG SUPP RECTAL PRN (05:30)
[2017-02-05] MEDS ORDERED: MAGNESIUM HYDROXIDE SUSP 30 ML CUP PO PRN (05:30)
[2017-02-05] MEDS ORDERED: SODIUM CHLORIDE 0.9% FLUSH 10 ML FLUSH IV FLUSH PRN (05:30)
[2017-02-05] MEDS ORDERED: ACETAMINOPHEN 325 MG TAB PO PRN (05:30)
[2017-02-05] MEDS: SODIUM CHLORIDE 0.9% FLUSH 10 ML FLUSH IV FLUSH SCH ×2 (08:31→21:36)
[2017-02-05] MEDS: DOCUSATE SODIUM 50 MG/SENNA 8.6 MG TAB PO SCH ×2 (08:31→21:35)
[2017-02-05] MEDS: levETIRAcetam 500 MG TAB PO SCH ×2 (10:27→21:34)
[2017-02-05] MEDS ORDERED: GADODIAMIDE PF 287 MG/ML 5 ML VIAL (for RAD MRI) IVCONTRAST ONE (10:55)
--- NOTE | 2017-02-05 11:48 | RADRPT ---
EXAM DATE/TIME: 02/05/2017 10:39 [facility] COMPARISON: MRI BRAIN W & W/O CONTRAST, October 21, 2016, 11:59. INDICATIONS : Inability to ambulate. Upper body weakness with tremors and dizziness. Loss of use of left leg. CVA . History of MS. CONTRAST: 93 cc Omniscan (gadodiamide) IV MEDICAL HISTORY : Multiple sclerosis. Carcinoma, breast. Seizures. SURGICAL HISTORY : section. Tonsillectomy. Hysterectomy. Bilateral mastectomy. ENCOUNTER: Subsequent ACUITY: 1 day PAIN SCORE: 0/10 LOCATION: head. TECHNIQUE: Multiplanar, multisequence MRI of the brain was performed both prior to and following the administrat ion of paramagnetic contrast. FINDINGS: Again seen are periventricular and subcortical white matter lesions that are high in signal on flair scattered throughout both cerebral hemispheres. There is a solitary new lesion that measures 4 mm wit hin the subcortical white matter in the right insular cortex no abnormal enhancement is observed. No restricted diffusion. The remaining brain parenchyma shows normal signal. Ventricles are normal in si ze. Paranasal sinuses and mastoid air cells are clear. No hemorrhage, acute infarction, or mass.. CONCLUSION: 1. White matter lesions consistent with multiple sclerosis. There is a new tiny lesion within the rig ht insular cortex relative to the prior study. No abnormal enhancement or signal change to suggest ac [place] active demyelination. Gabriel Lemus Jr., MD on February 05, 2017 at 11:39 Board Certified Radiologist. This report was verified electronically.
--- NOTE | 2017-02-05 14:15 | MB ---
cc: CHARLEE SINHA DATE OF CONSULTATION: 02/05/2017 HISTORY OF PRESENT ILLNESS A 31-year-old right-handed woman with a history of MS since 2013 with tremors, left leg weakness, chronic pain all over her body and bilateral lower extremities and back. She has a history of some tachycardia, breast cancer on the left in 2014, status post bilateral mastectomy and then earlier this year she had some swelling under her left axillary region, was told initially it may be an aspiration showed some cancer cells but then turned out not so. She tells me she has had a seizure now since October. Every night after she takes her weekly Avonex dose she will wake up with blood in her mouth. Says she was in the hospital here with possible seizures recently. She denies any depression or anxiety. She has been on Keppra. In the past she has been on Copaxone, Aubagio, Tecfidera. She said none of them seemed to work, neither does the Avonex. When she has relapses she has tremors all over, increased generalized weakness, some vision changes and left leg not working well and falls. She was seen on 10/19/[address] Esquivel for weakness in the left side, urinary incontinence, some left breast swelling. She thought she had weakness and tremor on the left hand. She could not lift her left leg off the bed. Left side pinprick was diminished. She gave her 500 of Solu-Medrol for 3 days. She had a MRI of the cervical, thoracic spine and brain. She had two seizures, put on Keppra. She had an EEG that was normal. Her back pain seemed to get better. She was thought to have a generalized seizure in the hospital as noted. MRI is consistent with MS in the brain and subsequently discharged. REVIEW OF SYSTEMS Denies any hypertension, diabetes, hypercholesterolemia, TN, renal, hepatic, pulmonary disease, thyroid disease, lupus, ulcer, stroke. SOCIAL HISTORY She is not a smoker or drinker. She lives with her children. FAMILY HISTORY Family history is positive for cancer, negative for seizure or stroke. Positive for MS in her mother. CURRENT MEDICATIONS She is on some Tylenol p.r.n., she was given some Solu-Medrol last evening, some morphine. PHYSICAL EXAMINATION VITAL SIGNS: Afebrile, 77, 16, heart rate 41, 101/63. NECK: No carotid bruits. HEART: Regular rhythm. I do not detect a murmur. NEURO: Pupils are equal, visual devine are full. Extraocular movements intact without nystagmus. Face is symmetric. Tongue was midline. Initially no tremor but when she pulled her arms out she had a very severe intention tremor course in the right upper extremity and that vacillated somewhat throughout the exam. She had normal strength in the right upper and lower extremity. Left upper extremity strength was normal. Left lower extremity strength is about a 2 to 2+ out of 5 in the iliopsoas. She could barely wiggle her toes about a 1/5, in the ankle dorsiflexion 0/5. DTRs are generally 2+, slightly hyperreflexic on bilateral knee jerks but not more on the left than the right. The toes are downgoing bilaterally. No ankle clonus. She might have some slight increased tone on the left lower extremity. Pinprick was absent up to about the hip on the left, normal in the right, normal in the hand and face. Her speech is fluent. She is not aphasic. Had normal guttural sounds. She says sometimes she has trouble swallowing. LABORATORY DATA Her CBC is normal. Sed rate was normal a year ago. RPR has been negative. Please see my prior note from 2016 for old workup she has had including negative Lyme titer, HSV, PCR has been negative. She had 3 oligoclonal bands. BMP is normal on this admission. Troponin is negative. ADRI has been negative. RPR has been negative. UA on this admission normal. CBC normal. IMAGING STUDIES Chest x-ray negative here. CAT scan of the brain was read as normal. MRI of the brain done in October showed a new plaques when compared to prior study from 2014. MRI of the cervical spine showed change in signal at C3. Thoracic spine MRI was normal. Review of the films of the MRI of the brain from October, she does have spots that are consistent with MS on the right temporal lobe and some Givens fingers seen more superiorly and bilaterally without enhancement, there is a few black holes, one seen on the right and one on the left, consistent with MS. Cervical spine MR did have one small area which did not enhance ___ C3. She does have some DJD and a bulging disk at C5-6 but not causing any spinal stenosis, and also a bulging what appears to be disc-like area on the right behind C3, I cannot see anything on the spinal cord. IMPRESSION History of MS and breast cancer. As far as I can ascertain from talking to her, she does not have active breast cancer, it was thought that maybe she did earlier this year but then evidently decided not. My thoughts on her because she has not had a great clinical course is to consider Tysabri. She did get some Solu-Medrol at 05:00 a.m. this morning and what I would recommend is a gram of Solu-Medrol a day for [address] Rincon her neurologist could consider the Tysabri outpatient if in fact the results of the breast cancer recurrence investigation was negative. Also with her chronic pain, Cymbalta could be considered. Will have physical therapy try to ambulate her. If she is able to ambulate, appears that she would prefer to have outpatient IV Solu-Medrol at the infusion center which would be fine as long as she is able to ambulate and not be a fall risk. I think for now considering she thinks she is having seizures since she has been on Avonex, I would hold that and we can continue her on the Keppra. I would treated her with at this point 1000 twice a day. She has been on 750 twice a day so we can increase it to 1000 twice a day. I do not see where she had a B12 level done in the past and will order that also. Will recheck her brain MR especially with the history of breast cancer and also a EEG, check a standing blood pressure, have physical therapy evaluate her. I am also going to check her FELIX virus status with the fact that she may take Tysabri in the future, for risk of PML stratification. MD NATHANIEL Ellis/FLORI /9:10 AM /1:08 PM
[2017-02-05] MEDS ORDERED: ACETAMINOPHEN 500 MG CPLT PO PRN (15:00)
--- NOTE | 2017-02-05 15:40 | EKG ---
Date Performed: 02/05/2017 Time Performed: 03:14:34 PTAGE: 31 years EKG: Sinus rhythm NORMAL ECG PREVIOUS TRACING : 10/22/2016 09.58 Compared to prior tracing no significant change DOCTOR: Esteban Castano Interpretating Date/Time 02/05/2017 15:38:35
--- NOTE | 2017-02-05 15:52 | HHI.HP ---
HPI Service [facility] Primary [facility] Physician No Primary Care Physician Admission Diagnosis MS exacerbation Diagnoses: Chief Complaint: Lower extremity weakness, slurred speech. Travel History International Travel<30 Days: No Contact w/Intl Traveler <30 Da: No Traveled to Known Affected Are: No History of Present Illness Ms. Estrada is a 31-year-old female with a history of multiple sclerosis, bilateral breast cancer who presents to the emergency department due to tremor, generalized weakness, lower extremity weakness, slurred speech. She was on the phone with her colleagues last night when she started experiencing bilateral lower extremity weakness and slurred speech. When EMS arrived patient was not able to use her walker to ambulate to her car. She did not have any urinary or bowel incontinence. She reported bilateral upper extremity tremors as well. No fever or chills. No cough or abdominal pain. No changes in bowel or bladder habits. Neurology evaluated patient in the emergency department and started her on high-dose Solu-Medrol for multiple sclerosis flareup. Review of Systems Except as stated in HPI: all other systems reviewed are Neg Past Family Social History Past Medical History Bilateral breast cancer, seizure activity, multiple sclerosis Past Surgical History 3 , tonsillectomy, hysterectomy, laparoscopy, mastectomy and reconstruction Reported Medications Flexeril (Cyclobenzaprine HCl) 10 Mg Tab 5 Mg PO Q8HR Bedside Commode (Device) 1 Mis Mis Ea .ROUTE DIRECTED Reported Avonex Inj Kit (Interferon Beta 1a) 30 Mcg (1 Ml) Kit 30 Mcg IM Q7D Keppra (Levetiracetam) 750 Mg Tab 750 Mg PO BID Allergies: Coded Allergies: lorazepam (Unverified Allergy, Intermediate, Bradycardia, 02/05/17) Family History Dad's sisters had breast cancer. Dad's mother had colon cancer. Patient's mother has multiple sclerosis and thyroid disease. Patient's dad has hyperlipidemia Social History Patient denies using tobacco, alcohol, illicit drugs. Physical Exam Vital Signs Vital Signs Date Time Temp Pulse Resp B/P (MAP) Pulse Ox O2 Delivery O2 Flow Rate FiO2 02/05/17 12:00 98.7 69 18 100/68 (79) 99 02/05/17 07:21 84 16 101/63 (76) Room Air 02/05/17 05:15 79 16 107/70 (82) 98 Room Air 02/05/17 02:47 98.3 77 16 133/88 (103) 100 Physical Exam GENERAL: This is a well-nourished, well-developed patient, in no apparent distress. SKIN: No rashes, ecchymoses or lesions. Warm and dry. HEAD: Atraumatic. Normocephalic. No temporal or scalp tenderness. EYES: Pupils equal round and reactive. No injection or drainage. ENT: Nose without bleeding, purulent drainage or septal hematoma. Airway patent. NECK: Trachea midline. No lymphadenopathy. Supple, nontender, no meningeal signs. CARDIOVASCULAR: Regular rate and rhythm without murmurs, gallops, or rubs. No JVD. RESPIRATORY: Clear to auscultation. Breath sounds equal bilaterally. No wheezes , rales, or rhonchi. GASTROINTESTINAL: Abdomen soft, non-tender, nondistended. No guarding. MUSCULOSKELETAL: Extremities without clubbing, cyanosis, or edema. Lower extremity is somewhat weak. No appreciable tremors noted. NEUROLOGICAL: Awake and alert. Cranial nerves II through XII intact. No focal neurological deficits. Normal speech. Laboratory Laboratory Tests Test 02/05/17 03:20 02/05/17 03:50 02/05/17 12:53 White Blood Count 6.5 Red Blood Count 3.91 Hemoglobin 11.7 Hematocrit 34.6 Mean Corpuscular Volume 88.6 Mean Corpuscular Hemoglobin 30.0 Mean Corpuscular Hemoglobin Concent 33.8 Red Cell Distribution Width 12.5 Platelet Count 141 Mean Platelet Volume 9.0 Neutrophils (%) (Auto) 66.9 Lymphocytes (%) (Auto) 25.0 Monocytes (%) (Auto) 5.1 Eosinophils (%) (Auto) 2.5 Basophils (%) (Auto) 0.5 Neutrophils # (Auto) 4.3 Lymphocytes # (Auto) 1.6 Monocytes # (Auto) 0.3 Eosinophils # (Auto) 0.2 Basophils # (Auto) 0.0 CBC Comment DIFF FINAL Differential Comment Prothrombin Time 10.9 Prothromb Time International Ratio 1.1 Activated Partial Thromboplast Time 25.4 Blood Urea Nitrogen 10 Creatinine 0.87 Random Glucose 87 Calcium Level 8.3 Magnesium Level 1.8 Sodium Level 140 Potassium Level 4.3 Chloride Level 107 Carbon Dioxide Level 27.7 Anion Gap 5 Estimat Glomerular Filtration Rate 93 Troponin I LESS THAN 0.02 Urine Color LIGHT-YELLOW Urine Turbidity CLEAR Urine pH 7.0 Urine Specific [place] 1.004 Urine Protein NEG Urine Glucose (UA) NEG Urine Ketones NEG Urine Occult Blood NEG Urine Nitrite NEG Urine Bilirubin NEG Urine Urobilinogen LESS THAN 2.0 Urine Leukocyte Esterase NEG Urine WBC LESS THAN 1 Urine Squamous Epithelial Cells <1 Urine Bacteria OCC Microscopic Urinalysis Comment CULT NOT INDICATED Vitamin B12 Level 596 Result Diagram: 02/05/1731902/05/17319 Imaging Last Impressions Brain MRI 02/05/17925 Signed Impressions: Service Date/Time: January 10:39 - CONCLUSION: 1. White matter lesions consistent with multiple sclerosis. There is a new tiny lesion within the right insular cortex relative to the prior study. No abnormal enhancement or signal change to suggest acute active demyelination. Gabriel Lemus Jr., MD Head CT 02/05/17254 Signed Impressions: Service Date/Time: January 03:56 - CONCLUSION: Normal examination. Prashanth Munoz MD Chest X-Ray 02/05/17254 Signed Impressions: Service Date/Time: January 03:37 - CONCLUSION: No acute disease. Prashanth Munoz MD [place] VTE Risk Assessment Caprini VTE Risk Assessment: No/Low Risk (score <= 1) Caprini Risk Assessment Model Point Value = 1 Point Value = 2 Point Value = 3 Point Value = 5 Age 41-60 Minor surgery BMI > 25 kg/m2 Swollen legs Varicose veins or History of unexplained or recurrent spontaneous Oral contraceptives or hormone replacement Sepsis (< 1 month) Serious lung disease, including pneumonia (< 1 month) Abnormal pulmonary function Acute myocardial infarction Congestive heart failure (< 1 month) History of inflammatory bowel disease Medical patient at bed rest Age 61-74 Arthroscopic surgery Major open surgery (> 45 min) Laparoscopic surgery (> 45 min) Malignancy Confined to bed (> 72 hours) Immobilizing plaster cast Central venous access Age >= 75 History of VTE Family history of VTE Factor V Leiden Prothrombin [id number] Lupus anticoagulant Anticardiolipin antibodies Elevated serum homocysteine Heparin-induced thrombocytopenia Other congenital or acquired thrombophilia Stroke (< 1 month) Elective arthroplasty Hip, pelvis, or leg fracture Acute spinal cord injury (< 1 month) Prophylaxis Regimen Total Risk Factor Score Risk Level Prophylaxis Regimen 0-1 Low Early ambulation 2 Moderate Order ONE of the following: *Sequential Compression Device (SCD) *Heparin 5000 units SQ BID 3-4 Higher Order ONE of the following medications: *Heparin 5000 units SQ TID *Enoxaparin/Lovenox 40 mg SQ daily (WT < 150 kg, CrCl > 30 mL/min) *Enoxaparin/Lovenox 30 mg SQ daily (WT < 150 kg, CrCl > 10-29 mL/min) *Enoxaparin/Lovenox 30 mg SQ BID (WT < 150 kg, CrCl > 30 mL/min) AND/OR *Sequential Compression Device (SCD) 5 or more Highest Order ONE of the following medications: *Heparin 5000 units SQ TID (Preferred with Epidurals) *Enoxaparin/Lovenox 40 mg SQ daily (WT < 150 kg, CrCl > 30 mL/min) *Enoxaparin/Lovenox 30 mg SQ daily (WT < 150 kg, CrCl > 10-29 mL/min) *Enoxaparin/Lovenox 30 mg SQ BID (WT < 150 kg, CrCl > 30 mL/min) AND *Sequential Compression Device (SCD) Assessment and Plan Problem List: (1) Exacerbation of multiple sclerosis ICD Code: G35 - Exacerbation of multiple sclerosis Status: Acute (2) Seizure ICD Code: R56.9 - Unspecified convulsions (3) History of breast cancer in female ICD Code: Z85.3 - Personal history of malignant neoplasm of breast Status: Acute (4) H/O bilateral mastectomy ICD Code: Z90.13 - Acquired absence of bilateral breasts and nipples Status: Acute Assessment and Plan Ms. Estrada is a pleasant 31-year-old female with a history of multiple sclerosis who presents to the emergency department due to lower extremity weakness, upper extremity tremors and slurred speech that started last night. Patient was evaluated by neurology who started patient on high-dose Medrol for multiple sclerosis flareup. - Acute exacerbation of multiple sclerosis - Continue supplemental 1000 mg daily for 3 days - Neurology evaluated patient. - MRI studies shows no acute findings. - Seizure disorder - Neurology increased Prior to him 750 mg every 12 hours 2 1000 mg every 12 hours. - Provide seizure precaution - Lower back pain - will continue [place] and acetaminophen when necessary Full code, SCDs, ambulation. Physician Certification 2 Midnight Certification Type: Admission for Inpatient Services Order for Inpatient Services The services are ordered in accordance with Medicare regulations or non- Medicare payer requirements, as applicable. In the case of services not specified as inpatient-only, they are appropriately provided as inpatient services in accordance with the 2-midnight benchmark. Estimated LOS (days): 2 days is the estimated time the patient will need to remain in the hospital, assuming treatment plan goals are met and no additional complications. Post-Hospital Plan: Home Heather Lopez DO Feb 05, 2017 15:52
[2017-02-05] MEDS: ACETAMINOPHEN/HYDROcodone 325 MG/5 MG TAB PO PRN (21:35)
[2017-02-05] MEDS: METOCLOPRAMIDE HCL 10 MG/2 ML VIAL IV PUSH PRN (21:36)
[2017-02-06] VITALS: BP 96/59; PULSE 58; RESP 16; TEMP 97.9; O2SAT 98
[2017-02-06 04:00] VITALS: BP 107/62; PULSE 61; RESP 16; TEMP 97.9; O2SAT 100
[2017-02-06 05:13] LABS: AUTOMATED NEUTROPHIL # 8.1 TH/MM3 (1.8-7.7); HEMATOCRIT 35.7 % (35.0-46.0); HEMO FLAGS DIFF FINAL; LYMPH % 8.7 % (9.0-44.0); LYMPHOCYTE # 0.8 TH/MM3 (1.0-4.8); MEAN CELL VOLUME 88.3 FL (80.0-100.0); MEAN CORPUSCULAR HEMOGLOBIN 28.5 PG (27.0-34.0); MEAN CORPUSCULAR HGB CONC 32.3 % (32.0-36.0); MONO % 4.1 % (0.0-8.0); NEUT % 87.2 % (16.0-70.0); PLATELET COUNT 150 TH/MM3 (150-450); RED BLOOD COUNT 4.04 MIL/MM3 (4.00-5.30); WHITE BLOOD COUNT 9.3 TH/MM3 (4.0-11.0)
[2017-02-06 05:27] LABS: POTASSIUM 4.1 MEQ/L (3.5-5.1)
[2017-02-06 05:30] LABS: BICARBONATE 26.7 MEQ/L (21.0-32.0)
[2017-02-06] MEDS ORDERED: methylPREDNISolone SOD SUCC 125 MG/2 ML VIAL IV PUSH SCH ×2 (06:00)
[2017-02-06 08:00] VITALS: BP_SYST 104; BP_SYST 105; BP_SYST 98; BP_DIAS 58; BP_DIAS 65; BP_DIAS 67; PULSE 72; RESP 16; TEMP 98.2; O2SAT 99
--- NOTE | 2017-02-06 08:24 | HHI.PR ---
Objective Vital Signs Date Time Temp Pulse Resp B/P (MAP) Pulse Ox O2 Delivery O2 Flow Rate FiO2 02/06/17 04:00 97.9 61 16 107/62 (77) 100 02/06/17 00:00 97.9 58 16 96/59 (71) 98 02/05/17 20:00 97.1 85 16 112/60 (77) 98 02/05/17 16:00 97.0 52 16 101/75 (84) 99 02/05/17 15:00 54 02/05/17 14:30 96.6 54 16 103/71 (82) 98 02/05/17 12:00 98.7 69 18 100/68 (79) 99 I/O 02/05/17 02/05/17 02/05/17 02/06/17 02/06/17 02/06/17 07:00 15:00 23:00 07:00 15:00 23:00 Intake Total 100 ml 1000 ml 590 ml 580 ml Balance 100 ml 1000 ml 590 ml 580 ml Intake Oral 590 ml 580 ml IV Total 100 ml 1000 ml # Voids 2 2 # Bowel Movements 0 0 Result Diagram: 02/06/17 0450 02/06/17 0450 Objective Remarks nurse tells me oob walks well with walker co numb lle Assessment and Plan Assessment and Plan imp eeg pend and needs fu trisha virus will take few days to come back mri one new r lesion c/t 11/02 plan is to get solumedrol iv for three doses fu eeg result if abn call neuro soup person one gram today an done tomorrow and she could dc home or to rehab she will dw her o/p neurologist about tysabri start up if she has not been on cymbalta this could be started now check a standing bp Esteban Merchant MD Feb 06, 2017 08:24
[2017-02-06] MEDS: levETIRAcetam 500 MG TAB PO SCH ×2 (10:39→20:36)
[2017-02-06] MEDS: SODIUM CHLORIDE 0.9% FLUSH 10 ML FLUSH IV FLUSH SCH ×2 (10:39→20:37)
[2017-02-06] MEDS: methylPREDNISolone SO SUCC INJ 1,000 MG in DEXTROSE 5% IN WATER 100ML INJ 100 ML IV SCH ×2 (10:39)
[2017-02-06] MEDS: FAMOTIDINE 20 MG TAB PO SCH ×2 (10:40→20:36)
[2017-02-06] MEDS: DOCUSATE SODIUM 50 MG/SENNA 8.6 MG TAB PO SCH ×2 (10:40→20:36)
[2017-02-06] MEDS: ACETAMINOPHEN/HYDROcodone 325 MG/5 MG TAB PO PRN (10:40)
[2017-02-06] MEDS: METOCLOPRAMIDE HCL 10 MG/2 ML VIAL IV PUSH PRN (10:41)
--- NOTE | 2017-02-06 11:09 | HHI.PR ---
Subjective Remarks Patient seen and examined today for follow-up on acute exacerbation of multiple sclerosis. Patient states that she is feeling much better. Numbness has improved. She is gaining her strength back. She has not had a bowel movement in 3 days. Patient is eating well. Objective Vital Signs Date Time Temp Pulse Resp B/P (MAP) Pulse Ox O2 Delivery O2 Flow Rate FiO2 02/06/17 08:00 98.2 72 16 98/58 (71) 99 104/65 (78) 105/67 (80) 02/06/17 04:00 97.9 61 16 107/62 (77) 100 02/06/17 00:00 97.9 58 16 96/59 (71) 98 02/05/17 20:00 97.1 85 16 112/60 (77) 98 02/05/17 16:00 97.0 52 16 101/75 (84) 99 02/05/17 15:00 54 02/05/17 14:30 96.6 54 16 103/71 (82) 98 02/05/17 12:00 98.7 69 18 100/68 (79) 99 I/O 02/05/17 02/05/17 02/05/17 02/06/17 02/06/17 02/06/17 07:00 15:00 23:00 07:00 15:00 23:00 Intake Total 100 ml 1000 ml 590 ml 580 ml Balance 100 ml 1000 ml 590 ml 580 ml Intake Oral 590 ml 580 ml IV Total 100 ml 1000 ml # Voids 2 2 # Bowel Movements 0 0 Result Diagram: 02/06/1744902/06/17449 Imaging Last Impressions Brain MRI 02/05/17925 Signed Impressions: Service Date/Time: January 10:39 - CONCLUSION: 1. White matter lesions consistent with multiple sclerosis. There is a new tiny lesion within the right insular cortex relative to the prior study. No abnormal enhancement or signal change to suggest acute active demyelination. Gabriel Lemus Jr., MD Head CT 02/05/17254 Signed Impressions: Service Date/Time: January 03:56 - CONCLUSION: Normal examination. Prashanth Munoz MD Chest X-Ray 02/05/17254 Signed Impressions: Service Date/Time: January 03:37 - CONCLUSION: No acute disease. Prashanth Munoz MD Objective Remarks GENERAL: Well-developed, well-nourished, in no acute distress. alert and orientated HEENT: Head is normocephalic without any lesions or masses noted. Facial features are symmetric. Eyes: Extraocular muscles are intact. Conjunctivae were clear. NECK: Supple without any masses. Trachea midline no deviation. No JVD, CARDIAC: Regular rhythm, regular rate. S1/S2 are heard. No murmurs gallops or rubs. LUNGS: Clear to auscultation bilaterally. No wheeze, rhonchi or rales. No use of accessory muscles on inspiration or expiration. ABDOMEN: Soft, nontender. Nondistended. Bowel sounds heard in all 4 quadrants. No organomegaly or masses. Negative rebound, negative guarding EXTREMITIES: No edema, pulses are equal bilaterally. No cyanosis or clubbing NEUROLOGY: Mood and affect appear appropriate. Cranial nerves II through XII grossly intact. Moving all extremities, speech is clear A/P Assessment and Plan Ms. Estrada is a pleasant 31-year-old female with a history of multiple sclerosis who presents to emergency department due to lower extremity weakness, upper extremity tremors and slurred speech. Patient was evaluated by neurology who started patient on high-dose Medrol for multiple sclerosis flareup. Acute exacerbation of multiple sclerosis, improving with treatment Continue supplemental 1000 mg daily for 3 days Neurology evaluated patient. MRI studies shows no acute findings. Seizure disorder Neurology increased Prior to him 750 mg every 12 hours 2 1000 mg every 12 hours. Awaiting EEG Seizure precaution Lower back pain continue [place] and acetaminophen when necessary DVT prevention Sequential compression devices CODE STATUS Full code Discharge Planning Discharge planning tomorrow after final dose of Solu-Medrol patient continues to improve Pineda Mackay Feb 06, 2017 11:09
[2017-02-06 12:00] VITALS: BP 97/69; PULSE 67; RESP 16; TEMP 98.7; O2SAT 97
--- NOTE | 2017-02-06 14:24 | MG ---
cc: SUMI HOWE MD Lab No: Date: 02/05/2017 Age: 31 Sex: F Race: Electroencephalogram record: DATE OF : 1985 HISTORY: 31-year-old with history of tremor, frequent falls, weakness. PROCEDURE: Low amplitude Theta appearing waveforms significant of the frontal myogenic artifact. Generalized slowing theta and 2-3 delta activity occurring followed by left frontal spindle activity and K complexes noted on epoch 22 suggestive of stage II sleep. The patient had mild driving with photic stimulation. Increased myogenic artifact, polymorphic delta with overriding alpha activity occurring frontal sharp wave epoch 101. Single lead EKG showing sinus rhythm. INTERPRETATION Mild encephalopathy, nonspecific changes in sleep state. Clinical correlation, EEG Sumi Howe MD MG/bart /7:23 AM /1:12 PM
[2017-02-06 16:00] VITALS: BP 108/62; PULSE 79; RESP 16; TEMP 98.2; O2SAT 98
[2017-02-06 20:00] VITALS: BP 109/61; PULSE 72; RESP 18; TEMP 98.2; O2SAT 98
[2017-02-07] VITALS: BP 110/64; PULSE 67; RESP 16; TEMP 97.7; O2SAT 97
[2017-02-07 04:39] VITALS: RESP 18
[2017-02-07 08:00] VITALS: BP 101/66; PULSE 71; RESP 12; TEMP 97.2; O2SAT 99
[2017-02-07] MEDS ORDERED: guaiFENesin/DEXTROMETHORPHAN 200 MG/20 MG/10 ML CUP PO PRN (09:00)
[2017-02-07] MEDS ORDERED: TRAM50TA PO (09:26)
[2017-02-07] MEDS ORDERED: LEVE500 PO (09:26)
--- NOTE | 2017-02-07 09:28 | HHI.DS ---
Discharge Summary Admission Date Feb 05, 2017 at 3:43 pm Discharge Date: Feb 07, 2017 Admitting Diagnosis MS exacerbation (1) Exacerbation of multiple sclerosis ICD Code: G35 - Exacerbation of multiple sclerosis Status: Acute (2) Seizure ICD Code: R56.9 - Unspecified convulsions (3) History of breast cancer in female ICD Code: Z85.3 - Personal history of malignant neoplasm of breast Status: Acute (4) H/O bilateral mastectomy ICD Code: Z90.13 - Acquired absence of bilateral breasts and nipples Status: Acute Procedures EEG Low amplitude Theta appearing waveforms significant of the frontal myogenic artifact. Generalized slowing theta and 2-3 delta activity occurring followed by left frontal spindle activity and K complexes noted on epoch 22 suggestive of stage II sleep. The patient had mild driving with photic stimulation. Increased myogenic artifact, polymorphic delta with overriding alpha activity occurring frontal sharp wave epoch 101. Single lead EKG showing sinus rhythm. INTERPRETATION Mild encephalopathy, nonspecific changes in sleep state. Clinical correlation, EEG Brief History - From Admission Ms. Estrada is a 31-year-old female with a history of multiple sclerosis, bilateral breast cancer who presents to the emergency department due to tremor, generalized weakness, lower extremity weakness, slurred speech. She was on the phone with her colleagues last night when she started experiencing bilateral lower extremity weakness and slurred speech. When EMS arrived patient was not able to use her walker to ambulate to her car. She did not have any urinary or bowel incontinence. She reported bilateral upper extremity tremors as well. No fever or chills. No cough or abdominal pain. No changes in bowel or bladder habits. Neurology evaluated patient in the emergency department and started her on high-dose Solu-Medrol for multiple sclerosis flareup. CBC/BMP: 02/06/17 0450 02/06/17 0450 Significant Findings Laboratory Tests Test 02/05/17 03:20 02/05/17 03:50 02/05/17 12:53 02/06/17 04:50 Red Blood Count 3.91 MIL/MM3 (4.00-5.30) Hematocrit 34.6 % (35.0-46.0) Platelet Count 141 TH/MM3 (150-450) Calcium Level 8.3 MG/DL (8.5-10.1) 7.8 MG/DL (8.5-10.1) Troponin I LESS THAN 0.02 NG/ML Urine Bacteria OCC /hpf (NONE) Hemoglobin 11.5 GM/DL (11.6-15.3) Neutrophils (%) (Auto) 87.2 % (16.0-70.0) Lymphocytes (%) (Auto) 8.7 % (9.0-44.0) Neutrophils # (Auto) 8.1 TH/MM3 (1.8-7.7) Lymphocytes # (Auto) 0.8 TH/MM3 (1.0-4.8) Imaging Last Impressions Brain MRI 02/05/17 0926 Signed Impressions: Service Date/Time: January 10:39 - CONCLUSION: 1. White matter lesions consistent with multiple sclerosis. There is a new tiny lesion within the right insular cortex relative to the prior study. No abnormal enhancement or signal change to suggest acute active demyelination. Gabriel Lemus Jr., MD Head CT 02/05/17254 Signed Impressions: Service Date/Time: January 03:56 - CONCLUSION: Normal examination. Prashanth Munoz MD Chest X-Ray 02/05/17254 Signed Impressions: Service Date/Time: January 03:37 - CONCLUSION: No acute disease. Prashanth Munoz MD PE at Discharge GENERAL: AOX3, NAD. SKIN: Warm and dry. HEAD: Normocephalic. EYES: No scleral icterus. No injection or drainage. NECK: Supple, trachea midline. No JVD or lymphadenopathy. CARDIOVASCULAR: Regular rate and rhythm without murmurs, gallops, or rubs. RESPIRATORY: Breath sounds equal bilaterally. No accessory muscle use. GASTROINTESTINAL: Abdomen soft, non-tender, nondistended. MUSCULOSKELETAL: No cyanosis, or edema. BACK: Nontender without obvious deformity. No CVA tenderness. Pt update on day of discharge Patient is doing well. No acute concerns. She has some sore throat but no fever , chills. No cough. Tolerating diet well. Hospital Course Ms. Estrada is a pleasant 31-year-old female with a history of multiple sclerosis who presents to emergency department due to lower extremity weakness, upper extremity tremors and slurred speech. Patient was evaluated by neurology who started patient on high-dose Medrol for multiple sclerosis flareup. Acute exacerbation of multiple sclerosis, improving with treatment Continue supplemental 1000 mg daily for 3 days Neurology evaluated patient. MRI studies shows no acute findings. Seizure disorder Neurology increased Prior to him 750 mg every 12 hours to 1000 mg every 12 hours. EEG unremarkable. Seizure precaution Lower back pain continue [place] and acetaminophen when necessary DVT prevention Sequential compression devices CODE STATUS Full code Pt Condition on Discharge: Good Discharge Disposition: Discharge Home Discharge Time: <= 30 minutes Discharge Instructions DIET: Follow Instructions for: As Tolerated, No Restrictions Activities you can perform: Regular-No Restrictions Follow up Referrals: Neurology - 1 Week New Medications: Tramadol (Tramadol) 50 Mg Tab 50 MG PO Q8H PRN for PAIN, #20 TAB 0 Refills Levetiracetam (Keppra) 500 Mg Tab 1000 MG PO Q12HR for Seizure Control, #60 TAB 3 Refills Continued Medications: Cyclobenzaprine (Flexeril) 10 Mg Tab 5 MG PO Q8HR for muscle spasm, #20 TAB 0 Refills Interferon Beta-1A Inj Kit (Avonex Inj Kit) 30 Mcg (1 Ml) Kit 30 MCG IM Q7D, #4 KIT Discontinued Medications: Levetiracetam (Keppra) 750 Mg Tab 750 MG PO BID for Control Seizures, #60 TAB 0 Refills Heather Lopez DO Feb 07, 2017 9:28 am
[2017-02-07] MEDS: SODIUM CHLORIDE 0.9% FLUSH 10 ML FLUSH IV FLUSH SCH (10:27)
[2017-02-07] MEDS: DOCUSATE SODIUM 50 MG/SENNA 8.6 MG TAB PO SCH (10:28)
[2017-02-07] MEDS: FAMOTIDINE 20 MG TAB PO SCH (10:28)
[2017-02-07] MEDS: methylPREDNISolone SO SUCC INJ 1,000 MG in DEXTROSE 5% IN WATER 100ML INJ 100 ML IV SCH ×2 (10:28)
[2017-02-07] MEDS: levETIRAcetam 500 MG TAB PO SCH (10:28)
== END 2017-02-07 13:02 | disposition home or self-care (01) | DRG 60 ==
LOC: NEPC 02:43 → NEDA 05:24 → UNDOADMIN 05:24 → INTOOBSV 05:26 → NEDA 05:26 → NEDH 09:35 → PH3A 13:45 → OBSVTOIN 15:43
PROVIDERS: ADMIT Hospitalist; ATTEND Hospitalist
DX: G35 Multiple sclerosis (principal); G40.909 Epilepsy, unspecified, not intractable, without status epilepticus; M54.5 Low back pain; M47.812 Spondylosis without myelopathy or radiculopathy, cervical region; Z85.3 Personal history of malignant neoplasm of breast; Z90.13 Acquired absence of bilateral breasts and nipples
CPT/HCPCS: 70450; 70553; 71010; 80048; 81001; 82607; 83735; 83921; 84425; 84443; 84484; 85025; 85610; 85730; 93005; 95819; 96374; 96375; A9579; G8987-GP; G8988-GP; J2270; J2405; J2765; J2930; J7030

== ENCOUNTER 2017-04-19 09:21 | Emergency (ER) | payer MEDICAID ==
[~2017-04-19] VITALS: Ht 177.8 cm; Wt 65.0 kg
[~2017-04-19 09:21] MED LIST changes: -HYDR-3516 PO; +INTE1KIT2 IM; +TRAM50TA PO
[2017-04-19 09:24] VITALS: BP 97/58; PULSE 73; RESP 17; TEMP 98.6; O2SAT 100
[2017-04-19] MEDS ORDERED: METO25TA3 PO (09:34)
--- NOTE | 2017-04-19 09:47 | PD ---
HPI Chief Complaint: Rn Travel Problem/Complaint Time Seen by Provider: 09:45 Travel History International Travel<30 days: No Contact w/Intl Traveler<30days: No Traveled to known affect area: No History of Present Illness HPI 31-year-old female came to the emergency room with history of vaginal discharge , itching and some swelling down there. She says this has been going on for past 2 days. She has had unprotected sex. Bedside was negative. Patient had history of chlamydia many years ago. She says she was treated that time. No history of dysuria or hematuria. Patient says she noticed some swelling down there as well. PFSH Past Medical History Narrative Medical List of her past medical, surgical, social and family history as reviewed from the nursing note. Asthma: No Autoimmune Disease: Yes (MS) Blood Disorders: No Anxiety: No Depression: No Heart Rhythm Problems: No Cancer: Yes (LEFT BREAST CA. MASTECTOMY 2014, cervical) Cardiovascular Problems: No High Cholesterol: No Chemotherapy: No Chest Pain: Yes Congestive Heart Failure: No COPD: No Cerebrovascular Accident: No Diabetes: No Diminished Hearing: No Endocrine: No Gastrointestinal Disorders: Yes Glaucoma: No Genitourinary: No Headaches: Yes Hepatitis: No Hiatal Hernia: No Hypertension: No Immune Disorder: Yes (MS) Implanted Vascular Access Dvce: No Kidney Stones: No Medical other: No Musculoskeletal: Yes (MS- SOMETIMES USES A CANE/walker) Neurologic: Yes (HX OF MS, RECENT EVENT -9) Psychiatric: No Reproductive: Yes (TOTAL HYSTERECTOMY 2013, mastectomy and reconstruction) Respiratory: Yes (bronchitis) Immunizations Current: Yes Migraines: Yes Radiation Therapy: No Renal Failure: No Seizures: Yes Sleep Apnea: No Thyroid Disease: No ?: Not LMP: 02/2013 Menopausal: No : 3 Para: 3 Ovarian Cysts: Yes Past Surgical History Abdominal Surgery: Yes (OVARIAN TUMOR/CYSTS REMOVED - ) AICD: No Body Medical Devices: breast implants Cardiac Surgery: No Section: Yes (X3) Endocrine Surgery: No Genitourinary Surgery: No Gynecologic Surgery: Yes (HYSTER=03/20/2013, CERVICAL SCRAPING/ LASER, CRYO LAPAROSCOPY ) Hysterectomy: Yes Joint Replacement: No Neurologic Surgery: No Pacemaker: No Thoracic Surgery: Yes (BILAT MASTECTOMY 11/2014, LUMPECTOMY) Tonsillectomy: Yes Other Surgery: Yes (bilateral mastectomy, reconstruction, cervix/ovary, tonsilect) Social History Alcohol Use: No Tobacco Use: No Substance Use: No Allergies-Medications (Allergen,Severity, Reaction): Coded Allergies: lorazepam (Unverified Allergy, Intermediate, Bradycardia, 02/05/17) Comments List of her allergies reviewed from the nursing note. Reported Meds & Prescriptions Reported Meds & Active Scripts Active Diflucan (Fluconazole) 100 Mg Tab 100 Mg PO DAILY 3 Days Flagyl (Metronidazole) 250 Mg Tab 250 Mg PO TID 7 Days Keppra (Levetiracetam) 500 Mg Tab 1,000 Mg PO Q12HR Reported Metoprolol Tartrate 25 Mg Tab 25 Mg PO DAILY Narrative Medication List of her home medications reviewed from the nursing note. Review of Systems Except as stated in HPI: all other systems reviewed are Neg Genitourinary: Positive: Discharge Physical Exam Narrative GENERAL: Awake, alert, moderate distress SKIN: Focused skin assessment warm/dry. HEAD: Atraumatic. Normocephalic. EYES: Pupils equal and round. No scleral icterus. No injection or drainage. ENT: No nasal bleeding or discharge. Mucous membranes pink and moist. NECK: Trachea midline. No JVD. CARDIOVASCULAR: Regular rate and rhythm. No murmur appreciated. RESPIRATORY: No accessory muscle use. Clear to auscultation. Breath sounds equal bilaterally. GASTROINTESTINAL: Abdomen soft, non-tender, nondistended. Hepatic and splenic margins not palpable. : Patient has extensive amount of thrush in the vaginal and cervical area. There is some yellowish discharge from the cervix which is not foul-smelling. Patient has positive right adnexal tenderness and CMT MUSCULOSKELETAL: No obvious deformities. No clubbing. No cyanosis. No edema. NEUROLOGICAL: Awake and alert. No obvious cranial nerve deficits. Motor grossly within normal limits. Normal speech. PSYCHIATRIC: Appropriate mood and affect; insight and judgment normal. Data Data Last Documented VS Vital Signs Date Time Temp Pulse Resp B/P (MAP) Pulse Ox O2 Delivery O2 Flow Rate FiO2 04/19/17 09:24 98.6 73 17 97/58 (71) 100 Orders Orders Gc And Chlamydia Pcr (04/19/17 09:50) Wet Prep Profile (04/19/17 09:50) Ua Includes Microscopic (04/19/17 09:50) Metronidazole (Flagyl) (04/19/17 10:45) Azithromycin Powd Pack (Zithromax Powd P (04/19/17 10:45) Ceftriaxone Inj (Rocephin Inj) (04/19/17 10:45) Lidocaine 1% Inj (50 Ml) (Xylocaine 1% I (04/19/17 10:45) Fluconazole (Diflucan) (04/19/17 10:45) Ed Discharge Order (04/19/17 10:41) Labs Laboratory Tests Test 04/19/17 10:01 04/19/17 10:38 Urine Color YELLOW Urine Turbidity HAZY Urine pH 5.5 Urine Specific [place] 1.026 Urine Protein TRACE mg/dL Urine Glucose (UA) NEG mg/dL Urine Ketones NEG mg/dL Urine Occult Blood TRACE Urine Nitrite NEG Urine Bilirubin NEG Urine Urobilinogen LESS THAN 2.0 MG/DL Urine Leukocyte Esterase LARGE Urine RBC 6 /hpf Urine WBC 3 /hpf Urine Squamous Epithelial Cells 7 /hpf Urine Transitional Epithelial Cells <1 /hpf Urine Bacteria RARE /hpf Urine Mucus FEW /lpf Clue Cells (Wet Prep) NONE SEEN Vaginal Trichomonas (Wet Prep) NONE SEEN Vaginal Yeast (Wet Prep) PRESENT Chlamydia trachomatis DNA (PCR) NOT DETECTED Neisseria gonorrhoeae DNA (PCR) NOT DETECTED MDM Medical Decision Making Medical Screen Exam Complete: Yes Emergency Medical Condition: Yes Medical Record Reviewed: Yes Differential Diagnosis STD, PID, vaginal candidiasis Narrative Course 10:50 AM patient was treated for PID including IM Rocephin, by mouth Zithromax and Flagyl. I also gave her a dose of Diflucan. Patient will be discharged home with prescriptions. If the GC and chlamydia comes back positive she'll be asked to contact her partner needs to be treated as well. Patient will be discharged home. Procedures EKG Prior to Arrival: No Diagnosis Primary Impression: PID (acute pelvic inflammatory disease) Additional Impression: Vaginal candidiasis Referrals: Primary Care Physician Additional Instructions: Please take the medication as per the prescription direction. We will call you if the cultures come back positive so that your partner can be treated. You need to follow-up with your [facility]. Return to the ER if condition worsens or any other new concerns. Med/Other Pt SpecificInfo: Prescription(s) given Scripts Fluconazole (Diflucan) 100 Mg Tab 100 MG PO DAILY for Infection for 3 Days, #3 TAB 0 Refills Prov: Stoney,Shravanti R. MD 04/19/17 Metronidazole (Flagyl) 250 Mg Tab 250 MG PO TID for Infection for 7 Days, TAB 0 Refills Prov: Aurelio Lua MD 04/19/17 Disposition: 01 DISCHARGE HOME Condition: Stable Aurelio Lua MD Apr 19, 2017 09:47
[2017-04-19 10:29] LABS: BACTERIA, URINE RARE /hpf; BILIRUBIN, URINE NEG (NEG); BLOOD, URINE TRACE (NEG); GLUCOSE,URINE NEG (NEG); KETONE, URINE NEG (NEG); MUCUS URINE FEW /lpf (OCC); NITRITE,URINE NEG (NEG); PH, URINE 5.5 (5.0-8.5); SQUAMOUS EPITHELIAL CELL URINE 7 /hpf (0-5); TRANSITIONAL EPI CELLS, URINE <1 /hpf; URINE COLOR YELLOW (YELLW/STRAW); URINE LEUKOCYTE ESTERASE LARGE (NEG)
[2017-04-19] MEDS ORDERED: DIFL100T PO (10:43)
[2017-04-19] MEDS ORDERED: METR250 PO (10:43)
[2017-04-19] MEDS ORDERED: LIDOCAINE HCL 1% 50 ML VIAL IM ONE (10:45)
[2017-04-19] MEDS ORDERED: metroNIDAZOLE 500 MG TAB PO ONE (10:45)
[2017-04-19] MEDS ORDERED: AZITHROMYCIN PWD FOR SUSP 1 GM PACKET PO ONE (10:45)
[2017-04-19] MEDS ORDERED: FLUCONAZOLE 100 MG TAB PO ONE (10:45)
[2017-04-19] MEDS ORDERED: cefTRIAXone 250 MG VIAL IM ONE (10:45)
== END 2017-04-19 11:50 | disposition home or self-care (01) ==
LOC: NEPD 09:21
DX: N73.9 Female pelvic inflammatory disease, unspecified (principal); B37.3 Candidiasis of vulva and vagina
CPT/HCPCS: 81001; 87210; 87491; 87591; 96372; 99284; J0696

== ENCOUNTER 2017-06-19 19:47 | Emergency (ER) | payer MEDICAID ==
[~2017-06-19] VITALS: Ht 177.8 cm; Wt 84.5 kg
[~2017-06-19 19:47] MED LIST changes: -BEDSIDE COMMODE1 MI1; -CYCL10TA PO; +DIFL100T PO; -INTE1KIT2 IM; +METO25TA3 PO; +METR250 PO; -TRAM50TA PO
[2017-06-19 20:08] VITALS: BP 96/64; PULSE 73; RESP 16; TEMP 98.1; O2SAT 100
[2017-06-19 20:20] VITALS: RESP 16; O2SAT 100
[2017-06-19] MEDS ORDERED: SODIUM CHLOR 0.9% 1000 ML INJ 1,000 ML IV ONE (20:30)
[2017-06-19] MEDS ORDERED: KETOROLAC TROMETHAMINE 30 MG/ML (IVP) VIAL IV PUSH ONE (20:30)
--- NOTE | 2017-06-19 20:33 | PD ---
HPI Chief Complaint: Chest Pain Time Seen by Provider: 20:08 Travel History International Travel<30 days: No Contact w/Intl Traveler<30days: No Traveled to known affect area: No History of Present Illness HPI 31-year-old female complains of head pressure, coughing congestion, chest pain, dizziness. Patient states that she started having head pressure about a week ago. Patient states that she started having productive cough for the past several days. Patient states that she started having substernal chest pressure for the past several days also. Patient states that the cough is intermittent and productive. Patient denies any abdominal pain. Patient denies any nausea vomiting diarrhea. Patient complains of poor appetite. Patient complained of intermittent dizziness. Patient has history of MS and seizure. Patient denies any dysuria or frequency. Patient denies any vaginal discharge or bleeding. Patient denies any chance of being . PFSH Past Medical History Asthma: No Autoimmune Disease: Yes (MS) Blood Disorders: No Anxiety: No Depression: No Heart Rhythm Problems: No Cancer: Yes (LEFT BREAST CA. MASTECTOMY 2014, cervical) Cardiovascular Problems: No High Cholesterol: No Chemotherapy: No Chest Pain: Yes Congestive Heart Failure: No COPD: No Cerebrovascular Accident: No Diabetes: No Diminished Hearing: No Endocrine: No Gastrointestinal Disorders: Yes Glaucoma: No Genitourinary: No Headaches: Yes Hepatitis: No Hiatal Hernia: No Hypertension: No Immune Disorder: Yes (MS) Implanted Vascular Access Dvce: No Kidney Stones: No Musculoskeletal: Yes (MS- SOMETIMES USES A CANE/walker) Neurologic: Yes (HX OF MS, RECENT EVENT 6-9) Psychiatric: No Reproductive: Yes (TOTAL HYSTERECTOMY 2013, mastectomy and reconstruction) Respiratory: Yes (bronchitis) Immunizations Current: Yes Migraines: Yes Radiation Therapy: No Renal Failure: No Seizures: Yes Sleep Apnea: No Thyroid Disease: No ?: Not Menopausal: No : 3 Para: 3 Ovarian Cysts: Yes Past Surgical History Abdominal Surgery: Yes (OVARIAN TUMOR/CYSTS REMOVED - ) AICD: No Body Medical Devices: breast implants Cardiac Surgery: No Section: Yes (X3) Endocrine Surgery: No Genitourinary Surgery: No Gynecologic Surgery: Yes (HYSTER=03/20/2013, CERVICAL SCRAPING/ LASER, CRYO LAPAROSCOPY ) Hysterectomy: Yes Joint Replacement: No Neurologic Surgery: No Pacemaker: No Thoracic Surgery: Yes (BILAT MASTECTOMY 11/2014, LUMPECTOMY) Tonsillectomy: Yes Other Surgery: Yes (bilateral mastectomy, reconstruction, cervix/ovary, tonsilect) Social History Alcohol Use: No Tobacco Use: No Substance Use: No Allergies-Medications (Allergen,Severity, Reaction): Coded Allergies: lorazepam (Unverified Allergy, Intermediate, Bradycardia, 02/05/17) Reported Meds & Prescriptions Reported Meds & Active Scripts Active Diflucan (Fluconazole) 100 Mg Tab 100 Mg PO DAILY 3 Days Flagyl (Metronidazole) 250 Mg Tab 250 Mg PO TID 7 Days Keppra (Levetiracetam) 500 Mg Tab 1,000 Mg PO Q12HR Reported Metoprolol Tartrate 25 Mg Tab 25 Mg PO DAILY Review of Systems General / Constitutional: No: Fever Eyes: No: Visual changes HENT: Positive: Lightheadedness, No: Headaches Cardiovascular: Positive: Chest Pain or Discomfort Respiratory: Positive: Cough, No: Shortness of Breath Gastrointestinal: No: Abdominal Pain Genitourinary: No: Dysuria Musculoskeletal: No: Pain Skin: No Rash Neurologic: No: Weakness Psychiatric: No: Depression Endocrine: No: Polydipsia Hematologic/Lymphatic: No: Easy Bruising Physical Exam Narrative GENERAL: Well-nourished, well-developed patient. SKIN: Focused skin assessment warm/dry. HEAD: Normocephalic. EYES: No scleral icterus. No injection or drainage. NECK: Supple, trachea midline. No JVD or lymphadenopathy. CARDIOVASCULAR: Regular rate and rhythm without murmurs, gallops, or rubs. RESPIRATORY: Breath sounds equal bilaterally. No accessory muscle use. GASTROINTESTINAL: Abdomen soft, non-tender, nondistended. MUSCULOSKELETAL: No cyanosis, or edema. BACK: Nontender without obvious deformity. No CVA tenderness. Neurologic exam normal. Data Data Last Documented VS Vital Signs Date Time Temp Pulse Resp B/P (MAP) Pulse Ox O2 Delivery O2 Flow Rate FiO2 06/19/17 20:20 Room Air 06/19/17 20:20 16 100 06/19/17 20:08 98.1 73 96/64 (75) Orders Orders Electrocardiogram (06/19/17 20:17) Complete Blood Count With Diff (06/19/17 20:17) Comprehensive Metabolic Panel (06/19/17 20:17) Creatine Kinase (Cpk) (06/19/17 20:17) Troponin I (06/19/17 20:17) Urinalysis - C+S If Indicated (06/19/17 20:17) Influenzae A/B Antigen (06/19/17 20:17) Chest, Single Ap (06/19/17 20:17) Iv Access Insert/Monitor (06/19/17 20:17) Ecg Monitoring (06/19/17 20:17) Oximetry (06/19/17 20:17) Sodium Chlor 0.9% 1000 Ml Inj (Ns 1000 M (06/19/17 20:30) Ketorolac Inj (Toradol Inj) (06/19/17 20:30) Labs Laboratory Tests Test 06/19/17 20:48 06/19/17 20:58 Urine Color YELLOW Urine Turbidity CLEAR Urine pH 7.0 Urine Specific [place] LESS/EQUAL 1.005 Urine Protein NEG mg/dL Urine Glucose (UA) NEG mg/dL Urine Ketones NEG mg/dL Urine Occult Blood NEG Urine Nitrite NEG Urine Bilirubin NEG Urine Urobilinogen 0.2 MG/DL Urine Leukocyte Esterase NEG Urine WBC 0-2 /hpf Urine Squamous Epithelial Cells 0-5 /hpf Microscopic Urinalysis Comment CULT NOT INDICATED White Blood Count 4.7 TH/MM3 Red Blood Count 4.41 MIL/MM3 Hemoglobin 12.8 GM/DL Hematocrit 38.7 % Mean Corpuscular Volume 87.8 FL Mean Corpuscular Hemoglobin 29.0 PG Mean Corpuscular Hemoglobin Concent 33.0 % Red Cell Distribution Width 11.5 % Platelet Count 156 TH/MM3 Mean Platelet Volume 9.3 FL Neutrophils (%) (Auto) 51.7 % Lymphocytes (%) (Auto) 37.0 % Monocytes (%) (Auto) 7.0 % Eosinophils (%) (Auto) 3.4 % Basophils (%) (Auto) 0.9 % Neutrophils # (Auto) 2.5 TH/MM3 Lymphocytes # (Auto) 1.7 TH/MM3 Monocytes # (Auto) 0.3 TH/MM3 Eosinophils # (Auto) 0.2 TH/MM3 Basophils # (Auto) 0.0 TH/MM3 CBC Comment DIFF FINAL Differential Comment Blood Urea Nitrogen 7 MG/DL Creatinine 0.82 MG/DL Random Glucose 65 MG/DL Total Protein 7.1 GM/DL Albumin 3.7 GM/DL Calcium Level 8.1 MG/DL Alkaline Phosphatase 115 U/L Aspartate Amino Transf (AST/SGOT) 15 U/L Alanine Aminotransferase (ALT/SGPT) 22 U/L Total Bilirubin 0.5 MG/DL Sodium Level 142 MEQ/L Potassium Level 3.7 MEQ/L Chloride Level 109 MEQ/L Carbon Dioxide Level 29.1 MEQ/L Anion Gap 4 MEQ/L Estimat Glomerular Filtration Rate 99 ML/MIN Total Creatine Kinase 134 U/L Troponin I LESS THAN 0.02 NG/ML MDM Medical Decision Making Medical Screen Exam Complete: Yes Emergency Medical Condition: Yes Interpretation(s) 21:48 PM. Chest x-ray shows no acute consolidation. CBC within normal limits. CMP with a glucose of 65. Cardiac enzymes are normal. UA is negative. Flu A and B antigen negative. Differential Diagnosis Differential diagnosis including viral syndrome, bronchitis, pneumonia, angina, ND, PE, pneumothorax, dehydration, electrolyte imbalance. Narrative Course 31-year-old female with head pressure, productive cough, poor appetite and chest discomfort. Normal saline solution 1 L IV bolus. Toradol 30 mg IV. Diagnosis Primary Impression: Cephalgia Qualified Codes: R51 - Headache Additional Impressions: Atypical chest pain Viral syndrome Patient Instructions: General Instructions Additional Instructions: Ultram as needed for headache and chest pain. Follow-up with personal physician. Return if worse. Tylenol for fever. Med/Other Pt SpecificInfo: Prescription(s) given Scripts Tramadol (Ultram) 50 Mg Tab 50 MG PO Q6H Y for PAIN, #12 TAB 0 Refills Prov: Sukhdev Park MD 06/19/17 Disposition: 01 DISCHARGE HOME Condition: Stable Sukhdev Park MD June 19, 2017 20:33
--- NOTE | 2017-06-19 20:52 | RADRPT ---
EXAM DATE/TIME: 06/19/2017 20:28 [facility] COMPARISON: No previous studies available for comparison. INDICATIONS : Cough. MEDICAL HISTORY : Multiple sclerosis. Carcinoma, breast. Seizures SURGICAL HISTORY : section. Tonsillectomy. Hysterectomy. Bilateral mastectomy ENCOUNTER: Initial ACUITY: 3 days PAIN SCORE: 0/10 LOCATION: Bilateral chest FINDINGS: A single view of the chest demonstrates the lungs to be symmetrically aerated without evidence of mas s, infiltrate or effusion. The cardiomediastinal contours are unremarkable. Osseous structures are intact. CONCLUSION: No acute disease. Roberto Cabello MD on June 19, 2017 at 20:50 Board Certified Radiologist. This report was verified electronically.
[2017-06-19 21:12] LABS: AUTOMATED NEUTROPHIL # 2.5 TH/MM3 (1.8-7.7); BASOPHIL % 0.9 % (0.0-2.0); EOSINOPHIL # 0.2 TH/MM3 (0-0.4); EOSINOPHIL % 3.4 % (0.0-4.0); HEMATOCRIT 38.7 % (35.0-46.0); HEMOGLOBIN 12.8 GM/DL (11.6-15.3); LYMPHOCYTE # 1.7 TH/MM3 (1.0-4.8); MEAN CELL VOLUME 87.8 FL (80.0-100.0); MEAN PLATELET VOLUME 9.3 FL (7.0-11.0); MONOCYTE # 0.3 TH/MM3 (0-0.9); NEUT % 51.7 % (16.0-70.0); PLATELET COUNT 156 TH/MM3 (150-450); RED BLOOD COUNT 4.41 MIL/MM3 (4.00-5.30); RED CELL DISTRIBUTION WIDTH 11.5 % (11.6-17.2); WHITE BLOOD COUNT 4.7 TH/MM3 (4.0-11.0)
[2017-06-19 21:15] LABS: BILIRUBIN, URINE NEG (NEG); BLOOD, URINE NEG (NEG); GLUCOSE,URINE NEG (NEG); KETONE, URINE NEG (NEG); NITRITE,URINE NEG (NEG); URINE COLOR YELLOW (YELLW/STRAW); URINE LEUKOCYTE ESTERASE NEG (NEG)
[2017-06-19 21:18] LABS: CHLORIDE 109 MEQ/L (98-107); SODIUM (NA) 142 MEQ/L (136-145)
[2017-06-19 21:22] LABS: ALBUMIN 3.7 GM/DL (3.4-5.0); BICARBONATE 29.1 MEQ/L (21.0-32.0); BLOOD UREA NITROGEN 7 MG/DL (7-18); CALCIUM 8.1 MG/DL (8.5-10.1); GLUCOSE,RANDOM 65 MG/DL (74-106)
[2017-06-19 21:25] LABS: ALT (GPT) 22 U/L (10-53); AST (GOT) 15 U/L (15-37); CREATININE 0.82 MG/DL (0.50-1.00); GLOMERULAR FILTRATION RATE 99 ML/MIN (>89)
[2017-06-19 21:27] LABS: TOTAL BILIRUBIN ADULT 0.5 MG/DL (0.2-1.0); TOTAL PROTEIN 7.1 GM/DL (6.4-8.2)
[2017-06-19 21:28] LABS: ALKALINE PHOSPHATASE 115 U/L (45-117)
[2017-06-19 21:30] LABS: TROPONIN I LESS THAN 0.02 NG/ML (0.02-0.05)
[2017-06-19 21:33] LABS: SQUAMOUS EPITHELIAL CELL URINE 0-5 /hpf (0-5); WBC, URINE 0-2 /hpf (0-5)
[2017-06-19 21:54] VITALS: BP 99/60; PULSE 75; RESP 14; O2SAT 100
[2017-06-19] MEDS ORDERED: TRAM50 PO (21:55)
[2017-06-19 22:21] VITALS: RESP 14
[2017-06-19 22:47] VITALS: BP 94/53
--- NOTE | 2017-06-20 14:01 | EKG ---
Date Performed: 06/19/2017 Time Performed: 20:10:35 PTAGE: 31 years EKG: Sinus rhythm NORMAL ECG INTERPRETATION BASED ON A DEFAULT AGE OF 41 YEARS NO PREVIOUS TRACING DOCTOR: Bert Chauhan Interpretating Date/Time 06/20/2017 14:00:40
== END 2017-06-19 22:57 | disposition home or self-care (01) ==
LOC: PHED 19:47
DX: R51 Headache (principal); R07.89 Other chest pain; B34.9 Viral infection, unspecified; G35 Multiple sclerosis; Z86.69 Personal history of other diseases of the nervous system and sense organs; Z79.899 Other long term (current) drug therapy; Z88.8 Allergy status to other drugs, medicaments and biological substances
CPT/HCPCS: 71045; 80053; 81001; 82550; 84484; 85025; 87804; 93005; 96361; 96374; 99285; J1885; J7030